=== PATIENT | female | born 1945 | race Caucasian/White ===

== ENCOUNTER 2025-05-25 09:11 | Outpatient (CLI) | payer MEDICARE, OTHER, SELFPAY | END 2025-05-25 09:12 | disposition home or self-care (01) | LOC: NFLDUCREF 09:12 | DX: Z11.9 Encounter for screening for infectious and parasitic diseases, unspecified (principal) | CPT/HCPCS: 86618 ==

== ENCOUNTER 2025-05-30 12:03 | Emergency (ER) | payer MEDICARE, OTHER, SELFPAY ==
--- OUTSIDE RECORDS SUMMARY | 2006-07-12 04:24 | XMS_ITS | Continuity of Care Document ---
Author Organization [facility] Address [address] [address] [place] [address] Phone Care Team Providers Care Research & Insights Executive Name Role Phone Ever Justin MD Unavailable Unavaila ble Allergies, Adverse Reactions, Alerts Substance Reaction Status Criticality Iodinated Contrast Media Anaphylactic shock Active No Information Medications Medication Instructions Dosage Effective Dates (start - stop) Status Comments CALCIUM + VITAMIN D (unknown strength) every day - 1200 mg Not Available - Active alprazolam 0.25 mg Tab as needed - Active aspirin 325 mg Tab every day - Active fluoxetine 40 mg Cap every day - Active Zocor 40 mg Tab every day - Active lisinopril 20 mg Tab every day - Active Zetia 10 mg Tab every day - Active Procedures Procedure Date Colorectal Ca Scrn Not Hi Risk 06 Advance Directives Directive Yes / No Effective Date File Name No Information Encounters Encounter Description Practice Location Reason(s) For Visit Diagnoses Date Provider Providers Copied on Encounter [facility], [address] [address], [place], [place], [id number], [place] tel:[phone] [facility] Colon Cancer Screening Nhan Curtis. [address] [facility], [facility] [address], [place], [place], [id number], [place]. tel:[phone] Family History Family Member Type Diagnosis Age At Onset No Information Payers Payer name Insurance type Covered alliance party ID Authoriza tiwiley(s) [facility] [id number] Social History Type Description Quantity Date Captured Comments Sex Female Smoking Status No Information Chief Complaint And Reason For Visit No Information Reason For Referral Reason For Referral No Information History Of Present Illness Encounter Date Complaint History Of Prese nt Illness No Information Functional Status Date Functional Assessmen t No Information Instructions Date Instruction Additional Infor mation No Information Assessments Type Assessment Date No Information Patient Care Teams Name Effective Dates (start - stop) Status Members No Information
--- OUTSIDE RECORDS SUMMARY | 2006-07-12 04:24 | XMS_ITS | Continuity of Care Document ---
Author Organization [facility] Address [address] [address] [place] [address] Phone Care Team Providers Care Laborer Tin Can Name Role Phone Ever Justin MD Unavailable [...] Diagnoses Date Provider Providers Copied on Encounter [facility], [address] [address], [place], [place], [id number], [place] tel:[phone] [facility] Colon Cancer Screening Nhan Curtis. [address] [facility], [facility] [address], [place], [place], [id number], [place]. tel:[phone] Family History Family Member Type Diagnosis Age At Onset No Information Payers Payer name Insurance type Covered democrat ID Authoriza tiwiley(s) [facility] [id number] Social History Type Description Quantity Date Captured [...]
--- OUTSIDE RECORDS SUMMARY | 2022-01-04 11:05 | XMS_ITS | Continuity of Care Document ---
Author Organization [facility] Address [address] [facility] [place] [address] Phone Care Team Providers Care Sap Basis Name Role Phone Will Ulises YANG Unavailable Unavailabl e Allergies, Adverse Reactions, Alerts Substance Reaction Status Criticality HYDROMORPHONE HCL Active No Informa tion morphine Active No Information Medications Medication Instructions Dosage Effective Dates (start - stop) Status Comments baclofen 10 mg tablet take 0.5 tablet by oral route 3 times every day - Active gabapentin 800 mg tablet take 1 tablet by oral route 2-3 times every day - Active lisinopril 20 mg tablet take 1 Tablet by oral route every day 20 MG - Active pravastatin 40 mg tablet take 1 tablet by oral route every day 40 MG - Active fluoxetine 40 mg capsule take 1 capsule by oral route every day in the morning 40 MG - Active calcium citrate 250 mg calcium tablet 2 tabs daily - Active aspirin 325 mg tablet take 1 tablet by o ral route every day 325 MG - Active Vitamin D3 2,000 unit tablet - Active Procedures Procedure Date OFFICE/OUTPATIENT VISIT, EST OFFICE/OUTPATIENT VISIT, EST OFFICE/OUTPATIENT VISIT, EST OFFICE/OUTPATIENT VISIT, EST OFFICE/OUTPATIENT VISIT, EST OFFICE/OUTPATIENT VISIT, EST THERAPEUTIC EXERCISES PT EVALUATION NEUROMUSCULAR REEDUCATION Mobility Current Status Mobility Goal Status OFFICE/OUTPATIENT VISIT, NEW Advance Directives Directive Yes / No Effective Date File Name No Information Encounters Encounter Description Practice Location Reason(s) For Visit Diagnoses Date Provider Providers Copied on Encounter [facility], [address] [place] [address], [id number] , [place] tel:[phone] [facility] No Information 2 Will Ulises. [address] [place] [address], [id number], [place]. [phone] OFFICE/OUTPA TIENT VISIT, [facility], [address] [place] [address], [id number] , [place] tel: [phone] [facility] Mary Back Pain (chief complaint) LumbagoDegeneratio n of lumbar or lumbosacral intervertebral discPostlaminectom y syndrome of lumbar region Linnea Kent. [address] [place] [address], [id number], [place]. [phone] Specialist : Vish Hudson MD, [address] [place] [address], [place], [address]. tel:[phone] erring Provider: Ulises La, [address] [place] [address], [address] . tel:[phone] OFFICE/OUTPA TIENT VISIT, [facility], [address] [place] [address], [id number] , [place] tel:[phone] [facility] [place] low back pain (chief complaint) Degeneration of lumbar or lumbosacral intervertebral discPostlaminectom y syndrome of lumbar region 4 No Medical Assistant Per Diem : Vish Hudson MD, [address] [place] [address], [place], [address]. tel:[phone] erring Provider: Ulises La, [address] [place] [address], [address] . tel:[phone] OFFICE/OUTPA TIENT VISIT, [facility], [address] [place] [address], [id number] , [place] tel:[phone] [facility] [place] low back pain (chief complaint) Degeneration of lumbar or lumbosacral intervertebral discPostlaminectom y syndrome of lumbar region 4- 4 No Medical Assistant Per Diem : Vish Hudson MD, [address] [place] [address], [place], [address]. tel:[phone] erring Provider: Ulises La, [address] [place] [address] [place], [address] . tel:[phone] OFFICE/OUTPA TIENT VISIT, [facility], [address] [place] [address] [place], [id number] , [place] tel:[phone] [facility] [place] low back pain (chief complaint) Degeneration of lumbar or lumbosacral intervertebral discPostlaminectom y syndrome of lumbar region 0 4 No Medical Assistant Per Diem : Vish Hudson MD, [address] [place] [address], [place], [address]. tel:[phone] erring Provider: Ulises La, [address] [place] [address] [place], [address] . tel:[phone] OFFICE/OUTPA TIENT VISIT, [facility], [address] [place] [address] [place], [place], [id number] , [place] tel:[phone] [facility] [place] low back pain (chief complaint) Degeneration of lumbar or lumbosacral intervertebral discLumbagoPostlam inectomy syndrome of lumbar region Sep-0 3-201 4 No Medical Assistant Per Diem : Vish Hudson MD, [address] [place] [address], [place], [address]. tel:[phone] erring Provider: Ulises La, [address] [place] [address] [place], [address] . tel:[phone] OFFICE/OUTPA TIENT VISIT, [facility], [address] [place] [address] [place], [id number] , [place] tel:[phone] [facility] [place] low back pain (chief complaint) Degeneration of lumbar or lumbosacral intervertebral discLumbagoDepress ion 4 No Medical Assistant Per Diem : Vish Hudson MD, [address] [place] [place], [address]. tel:[phone] erring Provider: Ulises La, [address] [place] [address] [place], [address] . tel:[phone] [facility], [address] [place] [address] [place], [id number] , tel:[phone] [facility] [place] back pain (chief complaint) No Information No Information Referring Provider: Ulises La, [address] [place] [address] [place], [address] . tel:[phone] OFFICE/OUTPA TIENT VISIT, [facility], [address] [place] [address] [place], [place], [id number] , tel:[phone] [facility] low back pain (chief complaint) Degeneration of lumbar or lumbosacral intervertebral discLumbagoPostlam inectomy syndrome of lumbar region No Medical Assistant Per Diem : Vish Hudson MD, [address] [place] [address] [place], [address]. tel:[phone] erring Provider: Ulises La, [address] [place] [address] [place], [address] . tel:[phone] Family History Family Member Type Diagnosis Age At Onset Close relative Problem (finding) bad back and necks Payers Payer name Insurance type Covered democrat ID Libertad cowan(s) [place] [id number] Social History Type Description Quantity Date Captured Comments Sex Female Smoking Status No Information Chief Complaint And Reason For Visit No Information Reason For Referral Reason For Referral No Information History Of Present Illness Encounter Date Complaint History Of Prese nt Illness Back Pain Onset: gradual w ithout injury. Severity level is 7. Duration: chronic. The problem is worsening. It occurs persistently. Location of pain is middle back and lower back.The patient describes the pain as an ache, burning and sharp. Symptoms are aggravated by getting up from sitting or lying down. Symptoms are relieved by lying down and pain meds/drugs. Back Pain (comments) Patient is here for f/u and medication refill. Two days after her last visit, she reports that she popped a rib in her back and believes that it is dislocated. She has an appt with her neurosurgeon this for further diagnosis. She has subsequently been experiencing increased mid-back pain and is back to taking #4 tabs/day of the [place]. She has weaned off the fentanyl patches. She is leaving for [place] for the winter this coming and already has PT scheduled there as well as a referral to an orthosurgeon ready as necessary. She plans to send us records from the neurology appt this week and will contact us as needed while in [place]. Functional Status Date Functional Assessmen t No Information Instructions Date Instruction Additional Infor venancio Reviewed medications Medications counted, patient is on track. Change medication Reviewed medications Reviewed medications Reviewed medications Medications counted, patient is on track. Medications counted, patient is on track. New medication is prescribed Reviewed medications Assessments Type Assessment Date No Information Patient Care Teams Name Effective Dates (start - stop) Status Members No Information
--- OUTSIDE RECORDS SUMMARY | 2022-01-04 11:05 | XMS_ITS | Continuity of Care Document ---
Author Organization [facility] Address [address] [facility] [place] [address] Phone Care Team Providers Care Aerial Gunner Superintendent Name Role Phone Will MD DONOHUE, Ulises Unavailable Unavailabl e Allergies, Adverse Reactions, Alerts Substance Reaction Status Criticality HYDROMORPHONE HCL Active No Informa tion morphine Active No Information Medications Medication Instructions Dosage Effective Dates (start - stop) Status Comments baclofen 10 mg tablet take 0.5 tablet by oral route 3 times every day - Active Vitamin D3 2,000 unit tablet - Active aspirin 325 mg tablet take 1 tablet by o ral route every day 325 MG - Active calcium citrate 250 mg calcium tablet 2 tabs daily - Active fluoxetine 40 mg capsule take 1 capsule by oral route every day in the morning 40 MG - Active pravastatin 40 mg tablet take 1 tablet by oral route every day 40 MG - Active lisinopril 20 mg tablet take 1 Tablet by oral route every day 20 MG - Active gabapentin 800 mg tablet take 1 tablet by oral route 2-3 times every day - Active Procedures Procedure Date OFFICE/OUTPATIENT VISIT, [...] Copied on Encounter [facility], [address] [place] [address], [id number] , [place] [phone] [facility] No Information 2 Will Ulises. [address] [place] [address], [id number], [place]. [phone] OFFICE/OUTPA TIENT VISIT, [facility], [address] [place] [address], [id number] , [place] tel: [phone] [facility] [place] Back Pain (chief complaint) LumbagoDegeneratio n of lumbar or lumbosacral intervertebral discPostlaminectom y syndrome of lumbar region Linnea Kent. [address] [place] [address], [id number], [place]. [phone] Specialist : Vish Hudson MD, [address] [place] [address], [place], [address]. tel:[phone] erring Provider: Ulises La, [address] [place] [address], [address] . tel:[phone] OFFICE/OUTPA TIENT VISIT, [facility], [address] [place] [address], [id number] , [place] tel:[phone] [facility] [place] low back pain (chief complaint) Degeneration of lumbar or lumbosacral intervertebral discPostlaminectom y syndrome of lumbar region 4 No Marketing Recruiter : Vish Hudson MD, [address] [place] [address], [place], [address]. tel:[phone] erring Provider: Ulises La, [address] [place] [address], [address] . tel:[phone] OFFICE/OUTPA TIENT VISIT, [facility], [address] [place] [address], [id number] , [place] tel:[phone] [facility] [place] low back pain (chief complaint) Degeneration of lumbar or lumbosacral intervertebral discPostlaminectom y syndrome of lumbar region 4- 4 No Marketing Recruiter : Vish Hudson MD, [address] [place] [address], [place], [address]. tel:[phone] erring Provider: Ulises La, [address] [place] [address] [place], [address] . tel:[phone] OFFICE/OUTPA TIENT VISIT, [facility], [address] [place] [address] [place], [id number] , [place] tel:[phone] [facility] [place] low back pain (chief complaint) Degeneration of lumbar or lumbosacral intervertebral discPostlaminectom y syndrome of lumbar region 0 4 No Marketing Recruiter : Vish Hudson MD, [address] [place] [address], [place], [address]. tel:[phone] erring Provider: Ulises La, [address] [place] [address] [place], [address] . tel:[phone] OFFICE/OUTPA TIENT VISIT, [facility], [address] [place] [address] [place], [place], [id number] , [place] tel:[phone] [facility] [place] low back pain (chief complaint) Degeneration of lumbar or lumbosacral intervertebral discLumbagoPostlam inectomy syndrome of lumbar region Sep-0 3-201 4 No Marketing Recruiter : Vish Hudson MD, [address] [place] [address], [place], [address]. tel:[phone] erring Provider: Ulises La, [address] [place] [address] [place], [address] . tel:[phone] OFFICE/OUTPA TIENT VISIT, [facility], [address] [place] [address] [place], [id number] , [place] tel:[phone] [facility] [place] low back pain (chief complaint) Degeneration of lumbar or lumbosacral intervertebral discLumbagoDepress ion 4 No Marketing Recruiter : Vish Hudson MD, [address] [facility] [place], [address]. tel:[phone] erring Provider: Ulises La, [address] [place] [address] [place], [address] . tel:[phone] [facility], [address] [place] [address] [place], [id number] , [phone] [facility] [place] back pain (chief complaint) No Information No Information Referring Provider: Ulises La, [address] [facility] [place], [address] . tel:[phone] OFFICE/OUTPA TIENT VISIT, [facility], [address] [place] [address] [place], [id number] , [phone] [facility] [place] low back pain (chief complaint) Degeneration of lumbar or lumbosacral intervertebral discLumbagoPostlam inectomy syndrome of lumbar region No Marketing Recruiter : Vish Hudson MD, [address] [place] [address] [place], [address]. tel:[phone] erring Provider: Ulises La, [address] [place] [address] [place], [address] . tel:[phone] Family History Family Member Type Diagnosis Age At Onset Close relative Problem (finding) bad back and necks Payers Payer name Insurance type Covered libertarian ID Libertad avilawiley(s) Medicare MB [id number] Social History Type Description Quantity Date Captured Comments Sex Female Smoking Status No Information Chief Complaint And Reason For Visit No Information Reason For Referral Reason For Referral No Information History Of Present Illness Encounter Date Complaint History Of Prese nt Illness Back Pain (comments) Patient is here for f/u and medication refill. Two days after her last visit, she reports that she popped a rib in her back and believes that it is dislocated. She has an appt with her neurosurgeon this for further diagnosis. She has subsequently been experiencing increased mid-back pain and is back to taking #4 tabs/day of the [place]. She has weaned off the fentanyl patches. She is leaving for [place] for the winter this coming weekend and already has PT scheduled there as well as a referral to an orthosurgeon ready as necessary. She plans to send us records from the neurology appt this week and will contact us as needed while in [place]. Back Pain Onset: gradual w ithout injury. Severity level is 7. Duration: chronic. The problem is worsening. It occurs persistently. Location of pain is middle back and lower back.The patient describes the pain as an ache, burning and sharp. Symptoms are aggravated by getting up from sitting or lying down. Symptoms are relieved by lying down and pain meds/drugs. Functional Status Date Functional Assessmen t No Information Instructions Date Instruction Additional Infor venancio Medications counted, patient is on track. Reviewed medications Reviewed medications Change medication Reviewed medications Reviewed medications Medications counted, patient is on track. Medications counted, patient is on track. New medication is prescribed Reviewed medications Assessments Type Assessment Date No Information Patient Care Teams Name Effective Dates (start - stop) Status Members No Information
--- OUTSIDE RECORDS SUMMARY | 2025-05-30 12:06 | XMS_ITS | Clinical Summary ---
Author Organization [facility] Address [address] [place] [address] Care Team Providers Care Loom Stop Checker Name Role Phone Unavailable Primary Care Provider Unavailabl e Social History Tobacco Use Types Packs/Day Years Used Date Smoking Tobacco: Never Assessed Comments Unknown Sex and Gender Information Value Date Recorded Sex Assigned at Not on file Legal Sex Female 11:00 AM MST Gender Identity Not on file Sexual Orientation Not on file Plan of Treatment Not on file Insurance MEDICARE PART A B MEDICARE SUPPLEMENTAL OTHER MEDICARE PART A B MEDICARE SUPPLEMENTAL OTHER MEDICARE PART A B MEDICARE SUPPLEMENTAL OTHER MEDICARE PART A B MEDICARE SUPPLEMENTAL OTHER
--- OUTSIDE RECORDS SUMMARY | 2025-05-30 12:06 | XMS_ITS | Encounter Summary ---
Author Organization [facility] Address [address] [place] [address] Care Team Providers Care Microphone Boom Operator Name Role Phone Unavailable Primary Care Provider Unavailabl e Encounter Details Date Type Department Care Team (Late st Contact Info) Description 01/16/[address] [facility] [address] [place] [address] System, Provider Not In [address] [place] [address] Social History Tobacco Use Types Packs/Day Years Used Date Smoking Tobacco: Never Assessed Comments Unknown Sex and Gender Information Value Date Recorded Sex Assigned at Not on file Legal Sex Female 11:00 AM MST Gender Identity Not on file Sexual Orientation Not on file documented as of this encounter Plan of Treatment Not on file documented as of this encounter Procedures Procedure Name Priority Date/Time Associated Diagnosis Comments CBC WITH DIFFERENTIAL Routine 01/25/2023 6:45 AM MST BASIC METABOLIC PANEL Routine 01/25/2023 6:45 AM MST BASIC METABOLIC PANEL Routine 01/21/2023 6:28 AM MST CULTURE URINE Routine 01/16/2023 12:34 PM MST UA WITH MICRO, CULT IF INDICATED Routine 01/16/2023 12:34 PM MST CBC WITH DIFFERENTIAL Routine 01/16/2023 5:54 AM MST COMPREHENSIVE METABOLIC PANEL Routine 01/16/2023 5:54 AM MST documented in this encounter Results * (ABNORMAL) Basic Metabolic Panel (01/25/2023 6:45 AM [facility]) Sodium 136 136 - 144 mmol/L 01/25/2023 8:41 AM [facility] Potassium 3.9 3.6 - 5.0 mmol/L 01/25/2023 8:41 AM [facility] Chloride 106 101 - 111 mmol/L 01/25/2023 8:41 AM [facility] CO2 25 22 - 32 mmol/L 01/25/2023 8:41 AM [facility] Anion Gap 5(L) 7 - 16 01/25/2023 8:41 AM [facility] Calcium 9.7 8.9 - 10.3 mg/dL 01/25/2023 8:41 AM [facility] Glucose 98 70 - 130 mg/dL 01/25/2023 8:41 AM [facility] BUN 13 8 - 20 mg/dL 01/25/2023 8:41 AM [facility] Creatinine 0.7 0.4 - 1.0 mg/dL 01/25/2023 8:41 AM [facility] eGFR >60 >60 mL/min/1.73 m2 01/25/2023 8:41 AM [facility] Blood BLOOD SPECIMEN / Unknown 01/25/2023 6:45 AM [facility] 01/25/2023 8:30 AM [facility] - 01/25/2023 8:41 AM [facility] For patients at least 18 years of age, estimated Glomerular Filtration Rate (eGFR) is calculated from creatinine using the Chronic Kidney Disease Epidemiology Collaboration (CKD-EPI) equation, refit without adjustment for race, as per recommendations from the NKF-ASN Task Force on Reassessing the Inclusion of Race in Diagnosing Kidney Disease. This eGFR equation has similar overall performance characteristics to the Modification of Diet in Renal Disease (MDRD) equation, but has been modified to remove the race coefficient. For patients under 18 years of age, eGFR is calculated using the Bedside Vigil equation. us Provider Not In System LAB BLOOD ORDERABLES Sabra luan Result [facility] [address] [facility] [place] [address], [facility] [phone] * (ABNORMAL) CBC with Differential (01/25/2023 6:45 AM [facility]) WBC 5.7 4.0 - 10.9 10 /uL 01/25/2023 8:38 AM [facility] RBC 3.26(L) 3.50 - 5.40 10 6/uL 01/25/2023 8:38 AM [facility] Hemoglobin 9.7(L) 12.0 - 16.0 g/dL 01/25/2023 8:38 AM [facility] Hematocrit 30.1(L) 36.0 - 48.0 % 01/25/2023 8:38 AM [facility] MCV 92.5 80.0 - 98.0 fL 01/25/2023 8:38 AM [facility] MCH 29.8 27.0 - 34.0 PG 01/25/2023 8:38 AM [facility] MCHC 32.2 31.0 - 37.0 g/dL 01/25/2023 8:38 AM [facility] RDW 15.1(H) 11.5 - 14.5 % 01/25/2023 8:38 AM [facility] RDW-SD 49.9(H) 36.4 - 46.3 fL 01/25/2023 8:38 AM [facility] Platelets 533(H) 130 - 450 K/uL 01/25/2023 8:38 AM [facility] MPV 8.8 7.4 - 12.4 fL 01/25/2023 8:38 AM [facility] Neutrophils 44 % 01/25/2023 8:38 AM [facility] Lymphs 32 % 01/25/2023 8:38 AM [facility] Monocytes 15 % 01/25/2023 8:38 AM [facility] Eosinophils 7 % 01/25/2023 8:38 AM [facility] Basophils 1 % 01/25/2023 8:38 AM [facility] nRBC <1.0 /100 WBCs 01/25/2023 8:38 AM [facility] Neutrophils Absolute 2.48 1.48 - 8.32 10 /uL 01/25/2023 8:38 AM [facility] Lymphocytes Absolute 1.84 0.90 - 3.50 10 /uL 01/25/2023 8:38 AM [facility] Monocytes Absolute 0.84(H) 0.26 - 0.80 uL 01/25/2023 8:38 AM [facility] Eosinophils Absolute 0.42 0.00 - 0.62 /uL 01/25/2023 8:38 AM [facility] Basophils Absolute 0.08 0.00 - 0.10 uL 01/25/2023 8:38 AM [facility] Nucleated RBC Absolute 0.000 0.000 - 0.020 uL 01/25/2023 8:38 AM [facility] Blood BLOOD SPECIMEN / Unknown 01/25/2023 6:45 AM [facility] 01/25/2023 8:30 AM [facility] us Provider Not In System LAB BLOOD ORDERABLES Sabra roland Result [facility] [address] [place] [address], [facility] [phone] * (ABNORMAL) Basic Metabolic Panel (01/21/2023 6:28 AM [facility]) Sodium 135(L) 136 - 144 mmol/L 01/21/2023 8:21 AM [facility] Potassium 4.6 3.6 - 5.0 mmol/L 01/21/2023 8:21 AM [facility] Chloride 103 101 - 111 mmol/L 01/21/2023 8:21 AM [facility] CO2 25 22 - 32 mmol/L 01/21/2023 8:21 AM [facility] Anion Gap 7 7 - 16 01/21/2023 8:21 AM [facility] Calcium 9.5 8.9 - 10.3 mg/dL 01/21/2023 8:21 AM [facility] Glucose 103 70 - 130 mg/dL 01/21/2023 8:21 AM [facility] BUN 14 8 - 20 mg/dL 01/21/2023 8:21 AM [facility] Creatinine 0.7 0.4 - 1.0 mg/dL 01/21/2023 8:21 AM [facility] eGFR >60 >60 mL/min/1.73 m2 01/21/2023 8:21 AM [facility] Blood BLOOD SPECIMEN / Unknown 01/21/2023 6:28 AM [facility] 01/21/2023 8:06 AM [facility] - 01/21/2023 8:21 AM [facility] For patients at least 18 years of age, estimated Glomerular Filtration Rate (eGFR) is calculated from creatinine using the Chronic Kidney Disease Epidemiology Collaboration (CKD-EPI) equation, refit without adjustment for race, as per recommendations from the NKF-ASN Task Force on Reassessing the Inclusion of Race in Diagnosing Kidney Disease. This eGFR equation has similar overall performance characteristics to the Modification of Diet in Renal Disease (MDRD) equation, but has been modified to remove the race coefficient. For patients under 18 years of age, eGFR is calculated using the Bedside Vigil equation. us Provider Not In System LAB BLOOD ORDERABLES Sabra l Result Performing Organization Address City/[facility]/ZIP Co de Phone Number [facility] [address] [facility] [place], [place] [address] [phone] * Culture Urine (01/16/2023 12:34 PM [facility]) Culture Urine 10,000 - 50,000 cfu/mL Streptococcus anginosus MARK 01/18/2023 12:51 PM [facility] Comment: No Further Workup Indicated Urine URINE SPECIMEN OBTAINED BY CLEAN CATCH PROCEDURE / Unknown 01/16/2023 12:34 PM [facility] 01/16/2023 4:27 PM [facility] Narrative Organism Antibiotic Method Susceptibility Streptococcus anginosus *Organism ID Completed Comment: Provider Not In System MICROBIOLOGY - GENERAL OR DERABLES Final Result Performing Organization Address [facility] Co de Phone Number [facility] [address] [place], [place] [address] [phone] * (ABNORMAL) UA with Micro, Cult if indicated (01/16/2023 12:34 PM [facility]) Color, Urine Yellow Colorless, Light Yellow, Yellow, Dark Yellow, Straw 01/16/2023 4:38 PM [facility] Clarity, Urine Cloudy(A) Clear 01/16/2023 4:38 PM [facility] Glucose, Urine Negative Negative mg/dL 01/16/2023 4:38 PM [facility] Bilirubin, Urine Negative Negative 01/16/2023 4:38 PM [facility] Ketones, Urine Negative Negative mg/dL 01/16/2023 4:38 PM [facility] Specific [place], Urine 1.011 1.005 - 1.030 01/16/2023 4:38 PM [facility] Comment:Specific [place] of >1.060 may be due to X-ray dyes. Blood, Urine Large(A) Negative 01/16/2023 4:38 PM [facility] pH, Urine 8.0 5.0 - 8.0 01/16/2023 4:38 PM [facility] Protein, Urine Negative Negative mg/dL 01/16/2023 4:38 PM [facility] Urobilinogen, Urine <2.0 <2.0 mg/dL 01/16/2023 4:38 PM [facility] Nitrite, Urine Negative Negative 01/16/2023 4:38 PM [facility] Leukocyte Esterase, Urine Moderate(A) Negative 01/16/2023 4:38 PM [facility] Culture Indicated? Yes 01/16/2023 4:38 PM [facility] WBC, Urine 42(A) 0 - 5 /HPF 01/16/2023 4:38 PM [facility] RBC, Urine 1 0 - 2 /HPF 01/16/2023 4:38 PM [facility] Bacteria, Urine None Seen None Seen /HPF 01/16/2023 4:38 PM [facility] Squamous Epithelial, Urine 1 0 - 5 /HPF 01/16/2023 4:38 PM [facility] WBC Clumps, Urine Occasional(A ) None Seen /HPF 01/16/2023 4:38 PM [facility] Amorphous Crystals, Urine Rare(A) None Seen /HPF 01/16/2023 4:38 PM [facility] Urine URINE SPECIMEN OBTAINED BY CLEAN CATCH PROCEDURE / Unknown 01/16/2023 12:34 PM [facility] 01/16/2023 4:27 PM [facility] us Provider Not In System URINE ORDERABLES Final Re sult [facility] [address] [place] [address], [facility] [phone] * (ABNORMAL) Comprehensive Metabolic Panel (01/16/2023 5:54 AM [facility]) [facility] Signature Glucose 93 70 - 130 mg/dL 01/16/2023 8:41 AM [facility] BUN 7(L) 8 - 20 mg/dL 01/16/2023 8:41 AM [facility] Creatinine 0.7 0.4 - 1.0 mg/dL 01/16/2023 8:41 AM [facility] eGFR >60 >60 mL/min/1. 73m2 01/16/2023 8:41 AM [facility] Sodium 136 136 - 144 mmol/L 01/16/2023 8:41 AM [facility] Corrected Sodium 01/17/20 8:41 AM [facility] Comment:Test Not Performed. Potassium 3.4(L) 3.6 - 5.0 mmol/L 01/16/2023 8:41 AM [facility] Chloride 103 101 - 111 mmol/L 01/16/2023 8:41 AM [facility] CO2 24 22 - 32 mmol/L 01/16/2023 8:41 AM [facility] Anion Gap 9 7 - 16 01/16/2023 8:41 AM [facility] Total Protein 5.7(L) 6.1 - 7.9 g/dL 01/16/2023 8:41 AM [facility] Albumin 2.6(L) 3.5 - 5.0 g/dL 01/16/2023 8:41 AM [facility] Globulin, Total 3.1 2.0 - 3.9 g/dL 01/16/2023 8:41 AM [facility] A/G Ratio 0.8(L) 1.1 - 2.5 01/16/2023 8:41 AM [facility] Calcium 9.3 8.9 - 10.3 mg/dL 01/16/2023 8:41 AM [facility] Corrected Calcium 10.4(H) 8.9 - 10.3 mg/dL 01/16/2023 8:41 AM [facility] Alkaline Phosphatase 98 38 - 126 U/L 01/16/2023 8:41 AM [facility] ALT 25 14 - 54 U/L 01/16/2023 8:41 AM [facility] AST 24 15 - 41 U/L 01/16/2023 8:41 AM [facility] Bilirubin, Total 0.5 0.4 - 2.0 mg/dL 01/16/2023 8:41 AM [facility] Blood BLOOD SPECIMEN / Unknown 01/16/2023 5:54 AM [facility] 01/16/2023 8:19 AM [facility] - 01/16/2023 8:41 AM [facility] For patients at least 18 years of age, estimated Glomerular Filtration Rate (eGFR) is calculated from creatinine using the Chronic Kidney Disease Epidemiology Collaboration (CKD-EPI) equation, refit without adjustment for race, as per recommendations from the NKF-ASN Task Force on Reassessing the Inclusion of Race in Diagnosing Kidney Disease. This eGFR equation has similar overall performance characteristics to the Modification of Diet in Renal Disease (MDRD) equation, but has been modified to remove the race coefficient. For patients under 18 years of age, eGFR is calculated using the Bedside Vigil equation. us Provider Not In System LAB BLOOD ORDERABLES Sabra l Result [facility] [address] [place] [address], [facility] [phone] * (ABNORMAL) CBC with Differential (01/16/2023 5:54 AM [facility]) WBC 6.3 4.0 - 10.9 10 /uL 01/16/2023 8:40 AM [facility] RBC 2.94(L) 3.50 - 5.40 10 6/uL 01/16/2023 8:40 AM [facility] Hemoglobin 9.1(L) 12.0 - 16.0 g/dL 01/16/2023 8:40 AM [facility] Hematocrit 27.4(L) 36.0 - 48.0 % 01/16/2023 8:40 AM [facility] MCV 93.3 80.0 - 98.0 fL 01/16/2023 8:40 AM [facility] MCH 31.0 27.0 - 34.0 PG 01/16/2023 8:40 AM [facility] MCHC 33.2 31.0 - 37.0 g/dL 01/16/2023 8:40 AM [facility] RDW 14.1 11.5 - 14.5 % 01/16/2023 8:40 AM [facility] RDW-SD 47.3(H) 36.4 - 46.3 fL 01/16/2023 8:40 AM [facility] Platelets 457(H) 130 - 450 K/uL 01/16/2023 8:40 AM [facility] MPV 8.2 7.4 - 12.4 fL 01/16/2023 8:40 AM [facility] Neutrophils 59 % 01/16/2023 8:40 AM [facility] Lymphs 20 % 01/16/2023 8:40 AM [facility] Monocytes 14 % 01/16/2023 8:40 AM [facility] Eosinophils 6 % 01/16/2023 8:40 AM [facility] Basophils 1 % 01/16/2023 8:40 AM [facility] nRBC <1.0 /100 WBCs 01/16/2023 8:40 AM [facility] Neutrophils Absolute 3.74 1.48 - 8.32 10 /uL 01/16/2023 8:40 AM [facility] Lymphocytes Absolute 1.28 0.90 - 3.50 10 /uL 01/16/2023 8:40 AM [facility] Monocytes Absolute 0.86(H) 0.26 - 0.80 uL 01/16/2023 8:40 AM [facility] Eosinophils Absolute 0.36 0.00 - 0.62 uL 01/16/2023 8:40 AM [facility] Basophils Absolute 0.09 0.00 - 0.10 uL 01/16/2023 8:40 AM [facility] Nucleated RBC Absolute 0.000 0.000 - 0.020 uL 01/16/2023 8:40 AM [facility] Blood BLOOD SPECIMEN / Unknown 01/16/2023 5:54 AM [facility] 01/16/2023 8:19 AM [facility] us Provider Not In System LAB BLOOD ORDERABLES Sabra l Result [facility] [address] [place] [address], [facility] [phone] documented in this encounter Visit Diagnoses Not on filedocumented in this encounter
--- OUTSIDE RECORDS SUMMARY | 2025-05-30 12:06 | XMS_ITS | Encounter Summary ---
Author Organization [facility] Address [address] [place] [address]. [place] [address] Care Team Providers Care Inspector Filter Tip Name Role Phone Garcia Muñiz RN Unavailable Tiara Granados MD Unavailable [phone] Ham Mujica Primary Care Provider [phone] Hiral Mir MD Primary Care Provider [phone] Hiral Mir MD Unavailable [phone] Encounter Details Date Type Department Care Team (Late st Contact Info) Description 04/07/2021 MyC Medical Advice [facility] [address] [place] [address] Tiara Granados MD [address] [place] [address] [id number] [place] [address] Social History Tobacco Use Types Packs/Day Years Used Date Smoking Tobacco: Former Cigarettes 0.5 48 S tarted: 03/07/2014 Smokeless Tobacco: Never Alcohol Use Standard Drinks/Week Comments Yes 0 (1 standard drink = 0.6 oz pur e alcohol) 1 drink every 2 weeks Comments No Sex and Gender Information Value Date Recorded Sex Assigned at Not on file Legal Sex Female 3:30 AM EDUCATIONAL ADVISOR Gender Identity Not on file Sexual Orientation Not on file COVID-19 Exposure Response Date Recorded In the last month, have you been in contact with someone who was confirmed or suspected to have Coronavirus / COVID-19? No / Unsure 04/10/2021 9:24 PM CDT documented as of this encounter Plan of Treatment Not on file documented as of this encounter Visit Diagnoses Not on filedocumented in this encounter Additional Health Concerns Infection Onset Date Last Indicated Resolved Time COVID-19 04/11/2021 04/11/2021 05/02/2021 11:3 9 PM CDT documented as of this encounter Care Teams Inspector Filter Tip Relationship Specialty Start Date End Date EileenelizabethHam daniels [address] [place] [address] PCP - General Internal Medicine 02/13/21 07/03/21 [place] [address] [address] [address] PCP - General Family Medicine 07/04/21 Garcia Muñiz, FABIÁN Specialty Formation Fracturing Operator Neurological Surgery 08/10/20 07/03/21 Tiara Granados MD [address] [facility] [id number] [place] [address] Assigned Neuroscience Provider 09/09/20 01/04/23 [place] [id number] [address] [address] Assigned PCP 06/08/21 08/09/24 documented as of this encounter
--- OUTSIDE RECORDS SUMMARY | 2025-05-30 12:06 | XMS_ITS | Encounter Summary ---
Author Organization [facility] Address [address] [place] [address] Care Team Providers Care Vending Machine Refiller Name Role Phone Dee Dee Gutierres M.D. Primary Care Provider [phone] Encounter Details Date Type Department Care Team (Late st Contact Info) Description 03/18/2025 Results Follow-Up Medallion Program in [place], [place] [address] [place] [address] Dee Dee Gtuierres M.D. [address] [place] [address] BI Breast Screening Bilateral with Tomosynthesis Social History Tobacco Use Types Packs/Day Years Used Date Smoking Tobacco: Former Cigarettes 1 54.9 1 11/18/1961 - 08/03/2017 Smokeless Tobacco: Never Comments:has been smokefree since 08/04 Alcohol Use Standard Drinks/Week Comments Yes 6 (1 standard drink = 0.6 oz pure alcohol) Very sporatic. Many weeks i have no alcohol [facility] Utilities Answer Date Recorded In the past 12 months has e electric, gas, oil, or water company threatened to shut off services in your home? No 03/29/2025 Humiliation, Afraid, Rape, and Kick questionnair e Answer Date Recorded Within the last year, have y ou been afraid of your partner or ex-partner? No 02/10/2023 Within the last year, have y ou been humiliated or emotionally abused in other ways by your partner or ex-partner? No Within the last year, have y ou been kicked, hit, slapped, or otherwise physically hurt by your partner or ex-partner? No 02/10/2023 Within the last year, have y ou been raped or forced to have any kind of sexual activity by your partner or ex-partner? No 02/10/2023 Hunger Vital Sign Answer Date Recorded Within the past 12 months, y ou worried that your food would run out before you got the money to buy more. Never true 03/29/20 Within the past 12 months, t he food you bought just didn't last and you didn't have money to get more. Never true 03/29/2025 PRAPARE - Transportation Answer Date Re corded In the past 12 months, has l ack of transportation kept you from medical appointments or from getting medications? No 03/18 In the past 12 months, has l ack of transportation kept you from meetings, work, or from getting things needed for daily living? No 03/29/2025 Depression Answer Date Recor ded PHQ-9 Total Score (max 27) 3 12/16 Housing Stability Answer Date Recorded What is your living situation today? I have a [facility] place to live 03/29/2025 Education Answer Date Recorded What is the highest level of school you have completed or the highest degree you have received? Some college, no degree 01/07/2022 Comments No Sex and Gender Information Value Date Recorded Sex Assigned at Female 01/07/2023 2:39 PM REALTIME CAPTIONER Legal Sex Female 11:08 PM REALTIME CAPTIONER Gender Identity Female 01/07/2023 2:39 PM REALTIME CAPTIONER Sexual Orientation Straight 09/14/2018 9: 19 PM CDT documented as of this encounter Plan of Treatment Upcoming Encounters Date Type Department Care Team (Latest Contact Info) Description 08/16/2025 7:50 AM MST Appointment Department of Laboratory Medicine and Pathology, [facility], in [place], [place] [address] [place] [address] Kaur Flynn [place]D. [address] [place] [address] 08/16/2025 8:00 AM [facility] Ancillary Procedure Department of Radiology in [place], [place] [address] [place] [phone] Kaur Flynn [place]. [address] [place] [address] 08/16/2025 10:00 AM [facility] Office Visit Division of Endocrinology in [place], [place] [address] [place] [address] Kaur Flynn [place]. [address] [place] [address] documented as of this encounter Visit Diagnoses Not on filedocumented in this encounter Additional Health Concerns Assessment Noted Time PHQ-9 Depression Total Score: 3 12/16/19 25 11:52 AM REALTIME CAPTIONER documented as of this encounter Care Teams Vending Machine Refiller Relationship Specialty Start Date End Date Dee Dee Gutierres M.D. NPSherita: [phone] [address] [place] [address] PCP - General Internal Medicine 08/14/21 documented as of this encounter
--- OUTSIDE RECORDS SUMMARY | 2025-05-30 12:06 | XMS_ITS | Encounter Summary ---
Author Organization [facility] Address [address] [place] [address] Care Team Providers Care Shredding Machine Knife Changer Name Role Phone Dee Dee Gutierres M.D. Primary Care Provider [phone] Encounter Details Date Type Department Care Team (Late st Contact Info) Description 03/15/2025 Results Follow-Up Transplant Center in [place], [place] [address] [place] [address] Too Phillips M.D. [address] [place] [phone] [place] [facility] Complete Social History Tobacco Use Types Packs/Day Years Used Date Smoking Tobacco: Former Cigarettes 1 54.9 1 11/18/1961 - 08/03/2017 Smokeless Tobacco: Never Comments:has been smokefree since 08/04 Alcohol Use Standard Drinks/Week Comments Yes 6 (1 standard drink = 0.6 oz pure alcohol) Very sporatic. Many weeks i have no alcohol C Utilities Answer Date Recorded In the past 12 months has [facility] [employer], gas, oil, or water [employer] threatened to shut off services in your [...] money to buy more. Never true 03/29/20 25 Within the past 12 months, t he [...] your living situation today? I have a [facility] place to live 03/29/2025 Education Answer Date Recorded What is the highest level of school you have completed or the highest degree you have received? Some college, no degree 01/07/2022 Comments No Sex and Gender Information Value Date Recorded Sex Assigned at Female 01/07/2023 2:39 PM BIRD SITTER Legal Sex Female 11:08 PM BIRD SITTER Gender Identity Female 01/07/2023 2:39 PM BIRD SITTER Sexual Orientation Straight 09/14/2018 9: 19 PM CDT documented as of this encounter Plan of Treatment Upcoming Encounters Date Type Department Care Team (Latest Contact Info) Description 08/16/2025 7:50 AM MST Appointment Department of Laboratory Medicine and Pathology, [facility], in [place], [place] [address] [place] [phone] Kaur Flynn M.D. [address] [place] [address] 08/16/2025 8:00 AM [facility] Ancillary Procedure Department of Radiology in [place], [place] [address] [place] [address] Kaur Flynn M.D. [address] [place] [address] 08/16/2025 10:00 AM [facility] Office Visit Division of Endocrinology in [place], [place] [address] [place] [address] Kaur Flynn M.D. [address] [place] [address] documented as of this encounter Visit Diagnoses Not on filedocumented in this encounter Additional Health Concerns Assessment Noted Time PHQ-9 Depression Total Score: 3 12/16/19 25 11:52 AM BIRD SITTER documented as of this encounter Care Teams Shredding Machine Knife Changer Relationship Specialty Start Date End Date Dee Dee Gutierres M.D. NPSherita: [id number] [address] [place] [address] PCP - General Internal Medicine 08/14/21 documented as of this encounter
--- OUTSIDE RECORDS SUMMARY | 2025-05-30 12:06 | XMS_ITS | Patient Health Record ---
Author Organization [facility], Address [address] [place] [address] Support Name Relationship Address Phone Xuan Mendieta Guarantor Unknown [phone] Reason For Referral No Information Problems Problem Type SNOMED Code ICD Code Onset Dates Problem Status W/U Status Risk Notes Problem Sensorineural hearing loss, bilateral (443611814) H90.3-Hearing loss, sensorineural, bilateral (H90.3) 01/10/20 17 Active confirmed Problem Sensorineural hearing loss, bilateral (677497565) 389.18-Hearing loss sensorineural bilateral (389.18) 01/08/20 14 Active confirmed Problem Sensorineural hearing loss (96976457) 389.10-Hearing Loss Sensorineural (389.10) 12/03/19 14 Active confirmed Plan Of Treatment No Information Insurance Providers Payer Name Payer Address Payer Phone Subscriber Number Group Number Insured Name Patient Relationship to Insured Coverage Start Date Coverage End Date Medicare Part B [employer] [address] [place] [phone] [id number] Xuna Mendieta Self - patient is the insured [facility] [address] [place] [address] [phone] [id number] Xuan Mendieta Self - patient is the insured
--- OUTSIDE RECORDS SUMMARY | 2025-05-30 12:06 | XMS_ITS | Encounter Summary ---
Author Organization [facility] Address [address] [place] [address] Care Team Providers Care Field Artillery Officer Name Role Phone Dee Dee Gutierres M.D. Primary Care Provider [phone] Encounter Details Date Type Department Care Team (Late st Contact Info) Description 03/15/2025 Results Follow-Up Department of Medical and Surgical Gynecology in [place], [place] [address] [place] [address] Aayush Vee M.D. [address] [place] [phone] Urinalysis, with Microscopic: Urine, Midstream, Bacterial Culture, Aerobic + Susceptibility, Urine Social History Tobacco Use Types Packs/Day Years Used Date Smoking Tobacco: Former Cigarettes 1 54.9 1 11/18/1961 - 08/03/2017 Smokeless Tobacco: Never Comments:has been smokefree since 08/04 Alcohol Use Standard Drinks/Week Comments Yes 6 (1 standard drink = 0.6 oz pure alcohol) Very sporatic. Many weeks i have no alcohol C Utilities Answer Date Recorded In the past 12 months has th e electric, gas, oil, or water company [...] your living situation today? I have a [facility] place to live 03/29/2025 Education Answer Date Recorded What is the highest level of school you have completed or the highest degree you have received? Some college, no degree 01/07/2022 Comments No Sex and Gender Information Value Date Recorded Sex Assigned at Female 01/07/2023 2:39 PM BUSINESS DEVELOPMENT ASSISTANT Legal Sex Female 11:08 PM BUSINESS DEVELOPMENT ASSISTANT Gender Identity Female 01/07/2023 2:39 PM BUSINESS DEVELOPMENT ASSISTANT Sexual Orientation Straight 09/14/2018 9: 19 PM CDT documented as of this encounter Plan of Treatment Upcoming Encounters Date Type Department Care Team (Latest Contact Info) Description 08/16/2025 7:50 AM [facility] Appointment Department of Laboratory Medicine and Pathology, [facility], in [place], [place] [address] [place] [address] Kaur Flynn M.D. [address] [place] [address] 08/16/2025 8:00 AM [facility] Ancillary Procedure Department of Radiology in [place], [place] [address] [place] [address] Kaur Flynn M.D. [address] [place] [address] 08/16/2025 10:00 AM [facility] Office Visit Division of Endocrinology in [place], [place] [address] [place] [address] Kaur Flynn M.D. [address] [place] [address] documented as of this encounter Visit Diagnoses Not on filedocumented in this encounter Additional Health Concerns Assessment Noted Time PHQ-9 Depression Total Score: 3 12/16/19 25 11:52 AM BUSINESS DEVELOPMENT ASSISTANT documented as of this encounter Care Teams Field Artillery Officer Relationship Specialty Start Date End Date Dee Dee Gutierres M.D. [address] [place] [address] PCP - General Internal Medicine 08/14/21 documented as of this encounter
--- OUTSIDE RECORDS SUMMARY | 2025-05-30 12:06 | XMS_ITS | Encounter Summary ---
Author Organization [facility] Address [address] [place] [address]. [place] [address] Care Team Providers Care Vehicle Mechanic Name Role Phone Garcia Muñiz RN Unavailable Tiara Granados MD Unavailable [phone] Ham Mujica Primary Care Provider [phone] Hiral Mir MD Primary Care Provider [phone] Hiral Mir MD Unavailable [phone] Encounter Details Date Type Department Care Team (Late st Contact Info) Description 03/27/2021 MyC Medical Advice [facility] [address] [place] [address] Tiara Granados MD [address] [place] [address] [id number] [place] [address] Social History Tobacco Use Types [...] on file Legal Sex Female 3:30 AM PUMP TENDER Gender Identity Not on file Sexual Orientation Not on file COVID-19 Exposure Response Date Recorded In the last month, have you been in contact with someone who was confirmed or suspected to have Coronavirus / COVID-19? No / Unsure 03/21/2021 2:01 PM CDT documented as of this encounter Plan of Treatment Not on file documented as of this encounter Visit Diagnoses Not on filedocumented in this encounter Additional Health Concerns Infection Onset Date Last Indicated Resolved Time COVID-19 04/11/2021 04/11/2021 05/02/2021 11:3 9 PM CDT documented as of this encounter Care Teams Vehicle Mechanic Relationship Specialty Start Date End Date ValdemarjimHam daniels [address] [place] [address] PCP - General Internal Medicine 02/13/21 07/03/21 [place] [address] [address] [address] PCP - General Family Medicine 07/04/21 Garcia Muñiz, FABIÁN Specialty Bottom Turning Lathe Tender Neurological Surgery 08/10/20 07/03/21 Tiara Granados MD [address] [facility] [id number] [place] [address] Assigned Neuroscience Provider 09/09/20 01/04/23 [place] [address] [address] [address] Assigned PCP 06/08/21 08/09/24 documented as of this encounter
--- OUTSIDE RECORDS SUMMARY | 2025-05-30 12:06 | XMS_ITS | Encounter Summary ---
Author Organization [facility] Address [address] [place] [address]. [place] [address] Care Team Providers Care Contour Sander Name Role Phone Garcia Muñiz RN Unavailable Tiara Granados MD Unavailable [phone] Ham Mujica Primary Care Provider [phone] Hiral Mir MD Primary Care Provider [phone] Hiral Mir MD Unavailable [phone] Encounter Details Date Type Department Care Team (Late st Contact Info) Description 02/20/2021 MyC Medical Advice [facility] [address] [place] [address] Marine Weston, RN Social History Tobacco Use Types Packs/Day Years Used Date Smoking Tobacco: Former Cigarettes 0.5 48 S tarted: 03/07/2014 Smokeless Tobacco: Never Alcohol Use Standard Drinks/Week Comments Yes 0 (1 standard drink = 0.6 oz pur e alcohol) 1 drink every 2 weeks Comments No Sex and Gender Information Value Date Recorded Sex Assigned at Not on file Legal Sex Female 3:30 AM CANNONEER Gender Identity Not on file Sexual Orientation Not on file documented as of this encounter Plan of Treatment Not on file documented as of this encounter Visit Diagnoses Not on filedocumented in this encounter Additional Health Concerns Infection Onset Date Last Indicated Resolved Time Rule Out COVID-19 03/20/2021 03/20/2021 03/21/2021 6:32 PM CDT COVID-19 04/11/2021 04/11/2021 05/02/2021 11:3 9 PM CDT documented as of this encounter Care Teams Contour Sander Relationship Specialty Start Date End Date Ham Mujica [address] [place] [address] PCP - General Internal Medicine 02/13/21 07/03/21 [place] [address] [address] [address] PCP - General Family Medicine 07/04/21 Garcia Muñiz, FABIÁN Specialty Carbon Furnace Operator Neurological Surgery 08/10/20 07/03/21 Tiara Granados MD [address] [facility] [address] Assigned Neuroscience Provider 09/09/20 01/04/23 [place] [address] [address] [address] Assigned PCP 06/08/21 08/09/24 documented as of this encounter
--- OUTSIDE RECORDS SUMMARY | 2025-05-30 12:06 | XMS_ITS | Encounter Summary ---
Author Organization [facility] Address [address] [place] [address] Care Team Providers Care Floor Grinder Name Role Phone Dee Dee Gutierres M.D. Primary Care Provider [phone] Encounter Details Date Type Department Care Team (Latest Contact Info) Description 04/02/2025 Clinical Communication Division of Endocrinology in [place], [place] [address] [place] [address] Kaur Flynn M.D. [address] [place] [address] Social History Tobacco Use Types Packs/Day Years Used Date Smoking Tobacco: Former Cigarettes 1 54.9 1 11/18/1961 - 08/03/2017 Smokeless Tobacco: Never Comments:has been smokefree since 08/04 Alcohol Use Standard Drinks/Week Comments Yes 3 (1 standard drink = 0.6 oz pure alcohol) Very sporatic. Many weeks i have no alcohol C Utilities Answer Date Recorded In the past 12 months has [facility] [employer], gas, oil, or water [employer] threatened to shut off services in your [...] your living situation today? I have a [facility] place to live 03/29/2025 Education Answer Date Recorded What is the highest level of school you have completed or the highest degree you have received? Some college, no degree 01/07/2022 Comments No Sex and Gender Information Value Date Recorded Sex Assigned at Female 01/07/2023 2:39 PM INSURANCE CASE MANAGER Legal Sex Female 11:08 PM INSURANCE CASE MANAGER Gender Identity Female 01/07/2023 2:39 PM INSURANCE CASE MANAGER Sexual Orientation Straight 09/14/2018 9: 19 PM CDT documented as of this encounter Plan of Treatment Upcoming Encounters Date Type Department Care Team (Latest Contact Info) Description 08/16/2025 7:50 AM MST Appointment Department of Laboratory Medicine and Pathology, [facility], in [place], [place] [address] [place] [address] Kaur Flynn M.D. [address] [place] [address] 08/16/2025 8:00 AM [facility] Ancillary Procedure Department of Radiology in [place], [place] [address] [place] [address] Kaur Flynn [place].D. [address] [place] [address] 08/16/2025 10:00 AM [facility] Office Visit Division of Endocrinology in [place], [place] [address] [place] [address] Kaur Flynn [place].D. [address] [place] [address] documented as of this encounter Visit Diagnoses Not on filedocumented in this encounter Additional Health Concerns Assessment Noted Time PHQ-9 Depression Total Score: 3 12/16/19 25 11:52 AM INSURANCE CASE MANAGER documented as of this encounter Care Teams Floor Grinder Relationship Specialty Start Date End Date Dee Dee Gutierres M.D. [address] [place] [address] PCP - General Internal Medicine 08/14/21 documented as of this encounter
--- OUTSIDE RECORDS SUMMARY | 2025-05-30 12:06 | XMS_ITS | Clinical Summary ---
Author Organization [facility] Address [address] [place] [address] Care Team Providers Care Chinchilla Farmer Name Role Phone Dee Dee Gutierres M.D. Primary Care Provider [phone] Source Comments Patient records contain information from all sites at [facility]. For routine questions regarding patient records, call [phone] during business hours, M-F 8:00 AM - 5:00 PM Central Time. Record requests for emergency care only can be directed to [phone] at any time.[facility] Allergies Active Allergy Reactions Criticality Noted Date Comments Atorvastatin Other (see comments),Myalgia Medium 06/15/2010 lipitor Myalgia/myositis Diatrizoate Meglumine Anaphylaxis High 07/07/2013 (contrast dye) Hydromorphone Hallucinations Medium 08/17/2016 Iodinated Contrast Media Anaphylaxis High 10/01/2017 1995 stent placed, Six hours after stent placed, patient had anaphylactic reaction (shock - my bp was 50 over something). A few days later her skin peeled all over her body. Has received iodine contras x2 since then, both with steroid prep and has had no reaction. Morphine Hallucinations Medium 08/17/2016 Nickel Sulfate Rash Medium 08/17/2016 Oxycodone Other (see comments),Hallucinatio ns,Hypotension (Reselect Reaction) High 02/05/2023 Respiratory depression; Req'd Narcan inpatient Rosuvastatin Myalgia Medium 08/17/2016 Myalgia, myositis Medications * This document contains information received from the source organization and may not represent a complete record from that organization. psyllium seed, with dextrose, (FIBER ORAL) Take 5 tablets by mouth every morning. 6 Active ascorbic acid, vitamin C, (VITAMIN C) 100 mg tablet Take 1,000 mg by mouth daily. Active cholecalciferol (VITAMIN D3) 50 mcg (2,000 Unit) capsule Take 1 capsule by mouth every morning. Active neomycin-polymyx in-HC (CORTISPORIN) 3.5-10,000-1 mg/mL-unit/mL-% otic suspension Apply 4 drops to the affected ear twice daily for 10 days 10 mL 3 09/27/2023 10:59 AM MEDICAL GENETICIST 3 Active Additional Information Patient not taking.Reported on 12/16/2024 hydrocortisone (Hytone) 2.5 % ointment apply to affected area twice a day 20 g 1 4 Active escitalopram (Lexapro) 20 mg tablet Take 1 tablet (20 mg total) by mouth daily. 90 tablet 3 5 Active gabapentin (Neurontin) 300 mg capsuleIndicatio ns:Dysesthesia Take 3 capsules (900 mg total) by mouth 3 (three) times a day. 810 capsule 3 5 Active lisinopriL 10 mg tablet Take 1 tablet (10 mg total) by mouth daily. 90 tablet 3 5 Active mirabegron (Myrbetriq) 25 mg 24 hr tablet Take 1 tablet (25 mg total) by mouth daily. 90 tablet 3 5 Active pravastatin (PravachoL) 80 mg tablet Take 1 tablet (80 mg total) by mouth daily. 90 tablet 3 5 Active ursodioL (CHRIS Forte) 500 mg tablet Take 1 tablet (500 mg total) by mouth 2 (two) times a day. 180 tablet 3 5 Active ketoconazole (Nizoral) 2 % shampooIndicatio ns:Dermatitis Seborrheic Apply 1 Application topically 2 (two) times a week. Apply to damp skin, lather, leave on 5 minutes, and rinse 120 mL 11 5 Active clobetasoL (Cormax) 0.05 % external solutionIndicati ons:Dermatitis Seborrheic Apply twice daily to seborrheic dermatitis within the hair until smooth, then discontinue. Do not use on face, underarm, groin, or under breasts (female). May use [employer] if cheaper. 50 mL 2 5 Active triamcinolone (Kenalog) 0.1 % creamIndications :Dermatitis Apply twice daily to the rash on the body until smooth, then discontinue. Do not apply to face, underarm, groin, under breasts (female). May use [employer] if cheaper. 28.4 g 5 5 Active Repatha SureClick 140 mg/mL pen injector injection INJECT 1 ML (140 MG TOTAL) UNDER THE SKIN EVERY 14 DAYS. 6 mL 3 5 Active phenazopyridine (Pyridium) 200 mg tablet TAKE 1 TABLET (200 MG TOTAL) BY MOUTH ONCE FOR 1 DOSE. TAKE 1-2 HOURS BEFORE YOUR PROCEDURE. 5 Active LORazepam (Ativan) 0.5 mg tablet TAKE 1 TABLET (0.5 MG TOTAL) BY MOUTH 3 (THREE) TIMES A DAY NEEDED FOR ANXIETY. 90 tablet 5 Active nitrofurantoin monohydrate (Macrobid) 100 mg capsuleIndicatio ns:Urinary Tract Infection Site Not Specified Take 1 capsule (100 mg total) by mouth 2 (two) times a day. 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 Has remained on weight based dosing of ursodiol since then. Imaging: DEXA 01/2023: Osteoporosis US Liver 03/2023: normal w/o splenomegaly Fibroscan 08/2023: CAP 193, kPa 4.2 (S0, F1) Fibroscan 09/2024: CAP 197, kPa 4.3 (S0, F1) Labwork: 01/2023: TSH normal, total vitamin D normal 03/2023: plts 358, tbili 0.2, ALT 19, AST 28, AP 152, albumin 4.4; total cholesterol 134, HDL 72, LDL 45, tri 90 08/27/23: Tbili 0.3, ALT 12, AST 20, AP 123, HAV total neg, HBsAb neg, HBsAg neg, Hbc total neg, HCV Ab neg Assessment & Plan (09/21/2024 1:46 PM [facility]): Patient remains on weight-based dosing of ursodiol. Reiterated importance of remaining on this indefinitely. Reviewed again the implications of PBC on bone health, cardiovascular health and link with other autoimmune diseases. She already has an underlying diagnosis of osteoporosis which has been complicated by fractures. She is following with endocrinology regarding this. While patient has alendronate on her medication list, she is unsure if she is taking this. Additionally, she has had prior hyperlipidemia with significant coronary artery disease requiring stenting which is currently very well controlled on Repatha and statin therapy. In regards to overall liver health, plan to follow liver enzymes annually. No concern for fibrosis based on Fibroscan. Patient remains well compensated. Repeat FibroScan in one year. We discussed maintaining a healthy BMI (decreased 30 to 28 today), through dietary modification. Additionally, discussed appropriate EtOH use and while patient does not have history of excessive use, we did recommend minimization. Recommended previously to get HAV and HBV vaccinations due to lack of immunity. Assessment & Plan (08/28/2023 11:26 AM [facility]): We discussed in great detail the pathophysiology of primary biliary cholangitis and explained to the patient what the disease is and how it effects the liver. We discussed with the patient that her liver overall is doing very well as there is no evidence of scarring and her alk phos is already downtrending. We highlighted the importance of remaining compliant with ursodiol as it can delay progression to cirrhosis and it normalizes the alkaline phosphatase. We discussed that PBC can be associated with fatigue but unfortunately pharmacotherapy does not improve the symptoms. We also discussed the importance of minimizing further liver injury from other causes including minimizing alcohol intake and ensuring patient remains active and avoids weight gain. We recommend checking hepatitis C as well as vaccination status for hepatitis A and B and would recommend vaccination if patient does not have immunity We would recommend to check LFTs in 6 months to follow up the alkaline phosphatase We would recommend for the patient to return in 1 year on our liver clinic and will repeat a liver ultrasound and a FibroScan at that time. Team can also check TSH periodically as PBC can coexist with other autoimmune conditions most notably thyroid disease. Most recent TSH was normal Assessment & Plan (03/29/2023 1:56 PM [facility]): She meets diagnostic criteria for PBC. Her alkaline phosphatase levels have fluctuated, and are difficult to interpret in the setting of spinal surgery. However, with the positive AMA, CRISTÓBAL and an elevated liver fraction she does meet criteria for PBC. I would suggest initiation of weight based ursodiol 1000mg/day in divided doses. I would suggest starting with 500mg once nightly for two weeks and increasing to 500mg twice daily indefinitely thereafter with hepatic panel once every 6 months. I would suggest a Fibroscan be performed as well. If desired, she can establish care in our hepatology clinic for longitudinal care. Fracture Vertebra Thoracic Sequela 02/06/2023 Hypokalemia 01/28/2023 Pain Back Lumbar 01/02/2023 Dysesthesia 08/17/2022 Dermatitis Allergic Contact 08/17/2022 Overview (12/29/2023): Standard Series 09/21/22 PPD 4+ IL Nickel 4+ IL Disperse Proctor 4+ IL Potassium Dichromate 1+ IL Ethylenediamine dihydrochloride 4+ Q Methylisothiazolinone 1+ Q Fragrance Mix 1 1+ Q Extended Series 09/24/22 Gold sodium thiosulfate 2+ NR Dermatitis Seborrheic 08/04/2022 Osteoporosis 08/26/2020 Overview (09/21/2024): Evidence of osteoporosis on DEXA 01/2023. Follows with endocrinology. Alendronate is on medication list however patient is unclear if she is taking this. Will f/u with provider. Pain Thoracic Spine 08/09/2020 Overview (11/03/2020): Added automatically from request for surgery [id number] Hypertensive Heart Disease Without Heart Failure 10/20/2018 Hyperlipidemia 08/12/2017 Overview (06/27/2018): Hyperlipidemia NOS Coronary Artery Disease Without Angina Pectoris 09/11/2016 Overview (09/21/2024): +H/o CAD s/p stenting x3 previously. Due to this and h/o hyperlipidemia, patient remains on Repatha and statin therapy. Assessment & Plan (09/21/2024 1:47 PM [facility]): Patient to f/u with PCP regarding need for aspirin 81mg. Scoliosis 08/03/2014 Pain Back 11/10/2012 Pain Low Back Chronic 08/15/2012 Depression Major One Episode Full Remission 05/19 Migraine Headache 06/15/2010 Hypertension 06/15/2010 Panic Disorder Episodic Paroxysmal Anxiety 06/15 Deficiency Vitamin D 06/15/2010 Encounters Date Type Department Care Team Description 05/10/2025 Refill Medallion Program in [place], [place] [address] [place] [phone] Dee Dee Gutierres M.D. Med Refill 04/26/2025 Clinical Communication Division of Endocrinology in [place], [place] [address] [place] [address] Kaur Flynn M.D. Mdl Pt - END Est Work In Request - Gee 04/05/2025 9:45 AM [facility] Nurse Only Department of Medical and Surgical Gynecology in [place] [address] [place] [address] Aayush Vee M.D. Micah Santana, R.N. 04/02/2025 Clinical Communication Division of Endocrinology in [place], [place] [address] [place] [address] Kaur Flynn M.D. 03/22/2025 8:00 AM MST Procedure visit Department of Medical and Surgical Gynecology in [place] [address] [place] [address] Aayush Vee M.D. Urinary Urge Incontinence 03/18/2025 Results Follow-Up Medallion Program in [place] [address] [place] [address], [place] [address] Dee Dee Gutierres M.D. BI Breast Screening Bilateral with Tomosynthesis 03/15/2025 11:09 AM [facility] - 03/15/2025 11:59 PM [facility] Hospital Encounter Department of Radiology in [place] [address] [place] [address] Dee Dee Gutierres M.D. Screening Mammogram Breast Cancer Discharge Disposition: Home or Self Care 03/15/2025 10:06 AM [facility] - 03/15/2025 11:08 AM [facility] Hospital Encounter Department of Radiology, [facility], in [place] [address] [place] [address] Too Phillips M.D. Cirrhosis Biliary Primary (HCC) Discharge Disposition: Home or Self Care 03/15/2025 7:48 AM [facility] - 03/15/2025 10:05 AM [facility] Hospital Encounter Department of Laboratory Medicine and Pathology, [facility] in [place] [address] [place] [address] Aayush Vee M.D. Urinary Urge Incontinence Discharge Disposition: Home or Self Care 03/15/2025 Results Follow-Up Transplant Center in [place], [place] [address] [place] [address] Too Phillips M.D. US Abdomen Complete 03/15/2025 Results Follow-Up Department of Medical and Surgical Gynecology in [place] [address] [place] [address] Aayush Vee M.D. Urinalysis, with Microscopic: Urine, Midstream, Bacterial Culture, Aerobic + Susceptibility, Urine 03/03/2025 Refill Medallion Program in [place], [place] [address] [place] [address] Dee Dee Gutierres M.D. Med Refill from Last 3 Months Immunizations Immunization Administration Dates Next Due HZV (ZOSTAVAX) 10/25/2014 Influenza TIV (IM) 08/19/2013, 3,09/08/2012,2010,10/07/2010 Influenza high dose QV(65 ye ars or older) (PF) 08/25/2022,08/18/2022 Influenza, Injectable, Quadrivalent 10/17/2020 Influenza, Quadrivalent, Adj uvanted, Preservative Free 10/22/2021,10/17/2020 Influenza, Seasonal, Injectable 08/19/20 13,09/08/2012,10/07/2010,2007,11/06/2007,09/26/2005 Influenza, Unspecified 09/18/2017,09/11/2016,06/2015 PCV13 03/23/2015 PPD Test 11/13/2012 PPSV23 03/17/2012,11/13/2006 RZV (SHINGRIX) 10/12/2019,03/04/2019 SARS-COV-2 (COVID-19) - MODE RNA BIVALENT(Discontinued) 08/25/2022 SARS-COV-2 (COVID-19) - PFIZ ER (Discontinued)(12 years or older) 01/09/2021,12/19/2020 SARS-COV-2 (COVID-19) - PFIZ ER TS(Discontinued)(12 years or older) 02/28/2022 Td (Adult), adsorbed 11/22/2003 Td, (Adult) Unspecified 11/22/2003 Tdap 09/11/2016,10/29/2012 influenza trivalent high dos e (HD)(PF) 12/16/2024,08/25/2022,08/18/2022,2018,09/18/2018,07/26/2014 influenza trivalent vaccine (6 months and older)(PF) 08/16/2011 Family History Medical History Relation Name Comments Anxiety disorder Brother 1 Tao Hypertension Brother 1 Tao Hypertension Brother 2 Ruifno Hypertension Daughter Tamika Osteoporosis Daughter Tamika Ulcerative colitis Daughter Tamika Coronary artery disease Father Antonio from heart failure Anxiety disorder Mother Ashley Arthritis Mother Ashley Depression Mother Ashley Emphysema Mother Ashley Hypertension Mother Ashley from heart failure Osteoporosis Mother Ashley Glaucoma Paternal Grandfather Paternal Grandfather Kidney disease Paternal Grandfather Paternal Grandfath er Transient ischemic attack Paternal Grandfather Paternal Grandfather Rufino Arthritis Paternal Grandmother Suzy Old age Paternal Grandmother Suzy Pacemaker care Sister 1 Ashley Esteves heart damage to scleroderma Scleroderma Sister 1 Ashley Esteves Breast cancer Sister 2 Dorita Ovarian cancer Sister 3 Britni Psychiatric Sister 3 Britni Bipolar Arthritis Sister 4 Daksha Carotid artery disease Sister 4 Daksha Sleep apnea Sister 4 Daksha Hypertension Son Bryce Relation Name Status Comments Brother 1 Tao Alive Brother 2 Rufino Alive Daughter Tamika Alive Father Antonio (Age 75) Mother Ashley (Age 72) Paternal Grandfather Paternal Grandfather (Ag e 96) Paternal Grandmother Suzy (Age 88) Sister 1 Ashley Esteves Alive Sister 2 Dorita Alive Sister 3 Britni Alive Sister 4 Daksha Alive Son Bryce Alive Social History Tobacco Use Types Packs/Day Years Used Date Smoking Tobacco: Former Cigarettes 1 54.9 1 11/18/1961 - 08/03/2017 Smokeless Tobacco: Never Tobacco Cessation:Counseling Given: Not Answered Comments:has been smokefree since 08/04 Alcohol Use Standard Drinks/Week Comments Yes 3 (1 standard drink = 0.6 oz pure alcohol) Very sporatic. Many weeks i have no alcohol [employer] Answer Date Recorded In the past 12 months has [employer], gas, oil, or water [employer] threatened to shut off services in your [...] your living situation today? I have a [facility] place to live 03/29/2025 Education Answer Date Recorded What is the highest level of school you have completed or the highest degree you have received? Some college, no degree 01/07/2022 Comments No Sex and Gender Information Value Date Recorded Sex Assigned at Female 01/07/2023 2:39 PM MEDICAL GENETICIST Legal Sex Female 11:08 PM MEDICAL GENETICIST Gender Identity Female 01/07/2023 2:39 PM MEDICAL GENETICIST Sexual Orientation Straight 09/14/2018 9: 19 PM CDT Last Filed Vital Signs Vital Sign Reading Time Taken Comments Blood Pressure 125/57 02/26/2025 10:37 AM [facility] Pulse 67 02/26/2025 10:37 AM [facility] Temperature 36.8 C (98.2 F) 02/26/2025 10:37 AM MST Respiratory Rate 16 02/26/2025 10:37 AM [facility] Oxygen Saturation 97% 02/26/2025 10:37 AM MST Inhaled Oxygen Concentration - - Weight 68.3 kg (150 lb 9.2 oz) 02/26/2025 9:54 A M [facility] Height 158 cm (5' 2.21) 12/16/2024 10:48 AM [facility] Body Mass Index 27.36 12/16/2024 10:48 AM [facility] Plan of Treatment Upcoming Encounters Date Type Department Care Team (Latest Contact Info) Description 08/16/2025 7:50 AM [facility] Appointment Department of Laboratory Medicine and Pathology, [facility], in [place], [place] [address] [place] [address] Kaur Flynn M.D. [address] [place] [address] 08/16/2025 8:00 AM [facility] Ancillary Procedure Department of Radiology in [place], [place] [address] [place] [address] Kaur Flynn M.D. [address] [place] [address] 08/16/2025 10:00 AM [facility] Office Visit Division of Endocrinology in [place], [place] [address] [place] [address] Kaur Flynn [place].D. [address] [place] [address] Health Maintenance Due Date Last Done Comments Visit: Medicare Annual Wellness 1945 Hepatitis A Vaccines (1 of 2 - Risk 2-dose series) 1965 Hepatitis B Vaccines (1 of 3 - Risk 3-dose series) 2006 RSV vaccine - (32-36 weeks) or 60+ years (1 - 1-dose 75+ series) 2021 COVID-19 Vaccine ( season) 2024 08/25/2022, 02/28/2022, 10/22/2021, Additional history exists Lung Cancer Screening 03/18/2025 03/18/2024 , 03/11/2023, 12/28/2021, Additional history exists Depression Monitoring (PHQ-9) 04/15/2025 12/16/2024 Influenza Vaccine (#1) 2025 , 08/25/2022, 08/25/2022, Additional history exists Abdominal Ultrasound 09/14/2025 03/15/2025, 02/27/2024, 03/20/2023, Additional history exists Fasting Glucose for Diabetes Screening 12/16/2025 12/16/2024, 12/16/2024, 09/28/2024, Additional history exists Potassium Level 12/16/2025 12/16/2024, 09/18, 12/12/2023, Additional history exists Sodium Level 12/16/2025 12/16/2024, 09/18, 12/12/2023, Additional history exists Visit: Chronic Disease, age 18+ 12/16/2025 12/16/2024 Office Visit for Blood Pressure Check / Re-check 02/08/2026 02/08/2025 Creatinine Level (Kidney Function Test) 02/26/2026 02/26/2025, 12/16/2024, 09/28/2024, Additional history exists DTaP,Tdap,and Td Vaccines (3 - Td or Tdap) 09/11/2026 09/11/2016, 10/29/2012, 11/22/2003, Additional history exists Pneumococcal vaccine (50+ years) Completed 03/23/2015, 03/17/2012, 11/13/2006 Zoster Vaccines Completed 10/12/2019, 02/16, 10/25/2014 Colonoscopy Discontinued 02/19/2022 Colorectal Cancer Screening Discontinued Hepatitis B Screening Discontinued 08/30/2023 Hepatitis C Screening Completed 08/30/2023 Depression Monitoring (PHQ-9 for quality tracking) Completed 12/16/2024, 12/16/2024 Fall Risk Screen (Annual) Completed 02/26/2025 Mammogram Discontinued 03/15/2025, 06/2024, 02/04/2023, Additional history exists CT Colonography Discontinued Cologuard Discontinued FIT Discontinued IPV Vaccines Aged Out No longer eligi ble based on patient's age to complete this topic Medical Devices Implanted Type Area Behavior Interventionist Device Identifier Shelf Expiration Date Model / Serial / Lot Gr Inf [facility] 5.6 - [id number] Implanted:Qt y: 1 on 01/02/2023 by Shawn Keene M.D. at [facility] Bone or Tissue N/A: Spine Thoracic Medtronic 08/17/2024 [id number] / / [id number] [facility] [place] [address] 60 - [id number] - [id number] Implanted:Qt y: 1 on 01/02/2023 by Shwan Keene M.D. at [facility] Bone or Tissue N/A: Back [employer] 05/07/2025 [id number] / [id number] / Cardiac Stent X 3 Cardiac Stent Coronary Pramod Tka Hardware e.g. pins/screw s/rods Bilateral: Knee Spn Scrw L55mm Od6.5mm 4s Poly - [id number] Implanted:Qt y: 2 on 01/02/2023 by Shawn Keene M.D. at [facility] Hardware e.g. pins/screw s/rods N/A: Spine Thoracic NuVasive [id number] / / Spn Scrw Rln Lck Sld 5.5 - [id number] 0 Implanted:Qt y: 30 on 01/02/2023 by Shawn Keene M.D. at [facility] Hardware e.g. pins/screw s/rods N/A: Spine Thoracic Nu[employer]asive [id number] / / Spn Jorge Rln O 5.5x300 - [id number] 0 Implanted:Qt y: 2 on 01/02/2023 by Shawn Keene M.D. at [facility] Hardware e.g. pins/screw s/rods N/A: Spine Thoracic Nu[employer] [id number] / / Spn Jorge Rln Str 5.5x500 - [id number] 0 Implanted:Qt y: 2 on 01/02/2023 by Shawn Keene M.D. at [facility] Hardware e.g. pins/screw s/rods N/A: Spine Thoracic [employer] [id number] / / 4.5x40 Screw Implanted:Qt y: 1 on 01/02/2023 by Shawn Keene M.D. at [facility] Hardware e.g. pins/screw s/rods N/A: Spine Thoracic [employer] [id number] / / Spn Scrw Rln O 4s Sld 4.5x45 - [id number] 0 Implanted:Qt y: 1 on 01/02/2023 by Shawn Keene M.D. at [facility] Hardware e.g. pins/screw s/rods N/A: Spine Thoracic [employer] [id number] / / Spn Jorge Rln 5-5.5 - [id number] 0 Implanted:Qt y: 4 on 01/02/2023 by Shawn Keene M.D. at [facility] Hardware e.g. pins/screw s/rods N/A: Spine Thoracic Nu[employer]asive [id number] / / Spn Scrw Rln O Sld 5.5x40 - [id number] 0 Implanted:Qt y: 5 on 01/02/2023 by Shawn Keene M.D. at [facility] Hardware e.g. pins/screw s/rods N/A: Spine Thoracic Nu[employer]asive [id number] / / Spn Scrw Rln O Sld 4s 5.5x45 - [id number] 0 Implanted:Qt y: 4 on 01/02/2023 by Shawn Keene M.D. at [facility] Hardware e.g. pins/screw s/rods N/A: Spine Thoracic [employer]asive [id number] / / Screw Spinal L50mm Dia6.5mm - [id number] 0 Implanted:Qt y: 2 on 01/02/2023 by Shawn Keene M.D. at [facility] Hardware e.g. pins/screw s/rods N/A: Spine Thoracic Nu[employer]asive [id number] / / Spn Scrw Rln O Sld 4s 5.5x45 - [id number] 0 Implanted:Qt y: 4 on 01/02/2023 by Shawn Keene M.D. at [facility] Hardware e.g. pins/screw s/rods N/A: Spine Thoracic Nu[employer]asive [id number] / / [employer] Biopsy Clip - [id number] Implanted:Qt y: 1 on 03/11/2024 at [facility] Imaging Marker Right: Breast [employer] [id number] 11/27/2024 RK-LEEANNE VA-13 / / [id number] Pramod Iols Ocular Lens Eye Spn Scrw Rln O Sld Poly 5.5x35 - [id number] Implanted:Qt y: 3 on 01/02/2023 by Shawn Keene M.D. at [facility] Spine Implant N/A: Spine Thoracic Nu[employer]asive [id number] / / NA Explanted Type Area Behavior Interventionist Device Identifier Shelf Expiration Date Model / Serial / Lot T9-Pelvis Spine Fusion Explanted:Qty : 25 on 01/02/2023 by Shawn Keene M.D. at [facility] Hardware e.g. pins/screws/ rods Spine Lumbar Description:Explanted 4 rods , 4 connectors, 29 set screws, and 22 screws. Procedures Procedure Name Priority Date/Time Associated Diagnosis Comments IL CYSTHRSCPY INJ CHEMODENRVATION Routine 03/22/2025 8:00 AM [facility] Urinary Urge Incontinence BI BREAST SCREENING BILATERAL WITH TOMOSYNTHESIS RAD - Routine (most inpatients and all outpatients) 03/15/2025 11:53 AM [facility] Screening Mammogram Breast Cancer US ABDOMEN COMPLETE RAD - Routine (most inpatients and all outpatients) 03/15/2025 11:05 AM [facility] Cirrhosis Biliary Primary (HCC) URINALYSIS WITH MICROSCOPIC Routine 03/15/2025 8:42 AM [facility] Urinary Urge Incontinence BACTERIAL CULTURE, AEROBIC + SUSC, URINE Routine 03/15/2025 8:42 AM [facility] Urinary Urge Incontinence CREATININE WITH EGFR, S/P Routine 02/26/2025 8:51 AM [facility] Osteoporosis COMPREHENSIVE METABOLIC PANEL, S/P Routine 12/16/2024 8:24 AM [facility] Cirrhosis Biliary Primary (HCC) Hypertensive Heart Disease Without Heart Failure Coronary Artery Disease Without Angina Pectoris CT CHEST WITHOUT IV CONTRAST LUNG CANCER SCREEN LOW DOSE RAD - Routine (most inpatients and all outpatients) 03/18/2024 9:28 AM [facility] Smoking Tobacco Use Personal History HCV AB SCRN W/REFLEX TO HCV PCR, S Routine 08/30/2023 9:26 AM [facility] Cirrhosis Biliary Primary (HCC) HEPATITIS B SURFACE ANTIGEN Routine 08/30/2023 9:26 AM [facility] Cirrhosis Biliary Primary (HCC) COLONOSCOPY Routine 02/19/2022 7:01 AM [facility] General Medical Examination Adult from Last 3 Months or Most Recently Relevant to Health Maintenance Results * [place] CYSTHRSCPY INJ CHEMODENRVATION (03/22/2025 8:00 AM [facility]) Narrative Aayush Vee M.D. - 03/22/2025 8:00 AM [facility] Aayush Vee M.D. 03/22/2025 12:17 PM Injection Visit - Bladder Botox Performed by: Aayush Vee M.D. Authorized by: Aayush Vee M.D. Care team members present 1. Liyah Dumont [facility] PROCEDURE DETAILS Prophylactic medication comment: macrobid 100mg daily x 3 days called in. The cystoscope was introduced and anatomical landmarks identified. Number of units of Botox injected: 100 units Approximate number of injection sites: 10 CONSENT Consent obtained: written (Risks, benefits and alternatives were discussed and a written Informed Consent was obtained. Please see Informed Consent form for further details.) UNIVERSAL [employer]OTOCOL All relevant documentation and testing were reviewed and available. All required blood products, implants, devices and or special equipment were made available as applicable. Pre-procedure verification was conducted and the correct site was marked if required. A fire risk and smoke assessment were done as applicable. The procedural time-out to verify correct patient, correct side/site, and procedure was conducted prior to performing the procedure and confirmed in a procedural pause. PRE-PROCEDURE DETAILS Indications: urge incontinence Appropriate hand hygiene, gown, cap, mask, protective eyewear, sterile gloves, skin preparation, sterile drape, and strict aseptic technique were utilized as applicable for the procedure.: yes Site preparation: povidone-iodine SEDATION / ANESTHESIA Anesthesia method: topical application Topical application type: lidocaine POST-PROCEDURE DETAILS Procedure completed successfully: yes Complications: no apparent complications Comments I spoke to the patient about her symptoms. She does have return of her urgency about 6 weeks ago. A PVR was checked today which is noted to be 17 mL by bladder scanner. While she states that she is only voiding about 4-5 times during the day, she does void about 2 times per night. In hindsight she does feel like she is voiding more frequently than this. She has completed a bladder diary but had not sent that to us. She will send it to us. We discussed the risks of proceeding with Botox, and given that she is emptying her bladder well I recommended proceeding. We did agree upon a lower dose, because she did have significant improvement in her symptoms, and given the potential risk for retention and need for catheterization we decided on 75 units as opposed to 100. If she returns sooner without the need to catheterize, we will consider going back to the 100 units dose. us Aayush Vee M.D. OB GYNE ORDERABLES Final Result * BI Breast Screening Bilateral with Tomosynthesis (03/15/2025 11:53 AM [facility]) Anatomical Region Laterality Modality Breast, Breast Imaging RST L OS, Breast Imaging ARZ LOS, Breast Imaging FLA LOS Bilateral Mammography Impressions 03/15/2025 2:10 PM MST Negative. RECOMMENDATION: Annual Screening Mammogram ASSESSMENT: BI-RADS: 1: Negative. Narrative 03/15/2025 2:10 PM MST EXAM: BI BREAST SCREENING BILATERAL WITH TOMOSYNTHESIS Current study was evaluated with a Computer Aided Detection (CAD) system. INDICATION: Screening mammogram. COMPARISON: Prior exam(s) were available and reviewed for comparison. DENSITY: b. There are scattered areas of fibroglandular density. FINDINGS: No mammographic findings of malignancy. Procedure Note Tonja Tristan M.D. - 03/15/2025 EXAM: BI BREAST SCREENING BILATERAL WITH TOMOSYNTHESIS Current study was evaluated with a Computer Aided Detection (CAD) system. INDICATION: Screening mammogram. COMPARISON: Prior exam(s) were available and reviewed for comparison. DENSITY: b. There are scattered areas of fibroglandular density. FINDINGS: No mammographic findings of malignancy. IMPRESSION: Negative. RECOMMENDATION: Annual Screening Mammogram ASSESSMENT: BI-RADS: 1: Negative. Dee Dee Gutierres M.D. IMG BI PROCEDURES Final R esult * US Abdomen Complete (03/15/2025 11:05 AM MST) Anatomical Region Laterality Modality Abdomen, Ultrasound RST LOS, Ultrasound ARZ LOS, Ultrasound FLA LOS N/A Ultrasound Impressions 03/15/2025 11:38 AM MST Normal abdominal ultrasound. Narrative 03/15/2025 11:38 AM MST EXAM: US ABDOMEN COMPLETE CLINICAL INFORMATION PROVIDED IN REQUISITION: H/o PBC, no known cirrhosis ADDITIONAL PERTINENT AVAILABLE HISTORY: None. COMPARISON: Abdominal ultrasound dated 02/27/2024 FINDINGS: The liver appears normal. The spleen is normal in size (volume calculated at 85.1 ml, based on 7.0 cm length x 3.1 cm AP x 7.4 cm transverse). The gallbladder appears normal. The extrahepatic duct is normal in caliber. There is no intrahepatic bile duct dilatation. Allowing for limitations of ultrasound, no pancreatic abnormality is identified. Both kidneys are within normal limits in size and show no hydronephrosis. Benign left peripelvic cyst. Aorta is normal in caliber. Intrahepatic IVC is morphologically unremarkable. No ascites. MEASUREMENTS OBTAINED: Common hepatic duct: 0.6 cm R Kidney length: 10.7 cm L Kidney length: 11.0 cm Main Hepatic Artery PSV: 83 cm/s Procedure Note Daryl Abreu M.D. - 03/15/2025 EXAM: US ABDOMEN COMPLETE CLINICAL INFORMATION PROVIDED IN REQUISITION: H/o PBC, no knowncirrhosis ADDITIONAL PERTINENT AVAILABLE HISTORY: None. COMPARISON: Abdominal ultrasound dated 02/27/2024 FINDINGS: The liver appears normal. The spleen is normal in size (volume calculated at 85.1 ml, based on 7.0cm length x 3.1 cm AP x 7.4 cm transverse). The gallbladder appears normal. The extrahepatic duct is normal in caliber. There is no intrahepatic bileduct dilatation. Allowing for limitations of ultrasound, no pancreatic abnormality isidentified. Both kidneys are within normal limits in size and show no hydronephrosis.Benign left peripelvic cyst. Aorta is normal in caliber. Intrahepatic IVC is morphologicallyunremarkable. No ascites. MEASUREMENTS OBTAINED: Common hepatic duct: 0.6 cm R Kidney length: 10.7 cm L Kidney length: 11.0 cm Main Hepatic Artery PSV: 83 cm/s IMPRESSION: Normal abdominal ultrasound. us Too Phillips M.D. IMG US PROCEDURES Final Re sult * Bacterial Culture, Aerobic + Susceptibility, Urine (03/15/2025 8:42 AM [facility]) [facility] Urine Culture No growth after 1 day of incubation. 03/16/2025 6:34 AM [facility] Urine (Urine, Midstream) 03/15/2025 8:42 AM [facility] 03/15/2025 9:31 AM [facility] Comment:Specimen Source Site : Urine Aayush Vee M.D. LAB MICROBIOLOGY - GENERAL ORDER JOHN PAUL Final Result [facility] [address] [place] [address], [facility] [address] [place] [address] * Urinalysis, with Microscopic: Urine, Midstream (03/15/2025 8:42 AM [facility]) Pathologist [facility] Clarity Clear 03/15/2025 9:21 AM [facility] Color Yellow 03/15/2025 9:21 AM [facility] pH, U 5.5 4.5 - 8.0 03/15/2025 9:21 AM [facility] Specific [place] 1.009 1.002 - 1.030 03/15/2025 9:21 AM [facility] Glucose NEG NEG mg/dL 03/15/2025 9:21 AM [facility] Protein, U NEG NEG mg/dL 03/15/2025 9:21 AM [facility] Bilirubin NEG NEG 03/15/2025 9:21 AM [facility] Urobilinogen <0.2 NORMAL mg/dL 03/15/2025 9:21 AM [facility] Hemoglobin, QL NEG NEG 03/15/2025 9:21 AM [facility] Ketones NEG NEG mg/dL 03/15/2025 9:21 AM [facility] Leukocyte Esterase NEG NEG 03/15/2025 9:21 AM [facility] Nitrite, U NEG NEG 03/15/2025 9:21 AM [facility] Urine RBC <1 0 - 2 /hpf 03/15/2025 9:21 AM [facility] White Blood Cells 1-3 0 - 3 /hpf 025 9:21 AM [facility] Urine (Urine, Midstream) 03/15/2025 8:42 AM [facility] 03/15/2025 9:01 AM [facility] us Aayush Vee M.D. LAB URINE ORDERABLES Final Resul t Performing Organization Address [facility] de Phone Number [facility] [address] [place] [address], [place] [address] * Creatinine with Estimated GFR (02/26/2025 8:51 AM [facility]) Creatinine 0.61 0.59 - 1.04 mg/dL 02/26/2025 9:27 AM [facility] Estimated GFR (eGFR) >90 >=60 mL/min/BSA 02/26/2025 9:27 AM [facility] Comment: Estimated GFR calculated using the 2020 CKD_EPI creatinine equation. Blood (Blood, Venous) 02/26/2025 8:51 AM [facility] 02/26/2025 8:58 AM [facility] us Kaur Flynn M.D. LAB BLOOD ADD-ON Final R esult Performing Organization Address [facility] Co de Phone Number [facility] [address] [place] [address], [address] [address] * (ABNORMAL) Comprehensive Metabolic Panel (12/16/2024 8:24 AM [facility]) Potassium, S 4.6 3.6 - 5.2 mmol/L 12/16/2024 9:35 AM [facility] Sodium, S 136 135 - 145 mmol/L 12/16/2024 9:35 AM [facility] Chloride, S 100 98 - 107 mmol/L 12/16/2024 9:35 AM [facility] Bicarbonate, S 25 22 - 29 mmol/L 12/16/2024 9:35 AM [facility] Anion Gap 11 7 - 15 12/16/2024 9:35 AM [facility] BUN (Blood Urea Nitrogen), S 11.2 6.0 - 21.0 mg/dL 12/16/2024 9:35 AM [facility] Creatinine 0.65 0.59 - 1.04 mg/dL 12/16/2024 9:35 AM [facility] Estimated GFR (eGFR) >90 >=60 mL/min/BS A 12/16/2024 9:35 AM [facility] Comment: Estimated GFR calculated using the 2020 CKD_EPI creatinine equation. Calcium, Total, S 10.3(H) 8.8 - 10.2 mg/dL 12/16/2024 9:35 AM [facility] Glucose, S 85 70 - 140 mg/dL 12/16/2024 9:35 AM [facility] Protein, Total, S 7.1 6.3 - 7.9 g/dL 12/16/2024 9:35 AM [facility] Albumin, S 4.2 3.5 - 5.0 g/dL 12/16/2024 9:35 AM [facility] Aspartate Aminotransferase (AST), S 24 8 - 43 U/L 12/16/2024 9:35 AM [facility] Alkaline Phosphatase, S 95 35 - 104 U/L 12/16/2024 9:35 AM [facility] Alanine Aminotransferase (ALT), S 16 7 - 45 U/L 12/16/2024 9:35 AM [facility] Bilirubin, Total, S 0.4 0.0 - 1.2 mg/dL 12/16/2024 9:35 AM [facility] Blood (Blood, Venous) 12/16/2024 8:24 AM [facility] 12/16/2024 8:49 AM [facility] us Dee Dee Gutierres M.D. LAB BLOOD ADD-ON Final Re sult [facility] [address] [address], [facility] [address] [place] [address] * CT Chest Lung Cancer Screen Low Dose without IV Contrast (03/18/2024 9:28 AM [facility]) Anatomical Region Laterality Modality Chest, Thoracic RST LOS, Tho racic ARZ LOS, Thoracic FLA LOS N/A Computed Tomography Impressions 03/18/2024 9:48 AM [facility] Lung-RADS CATEGORY: 2 [ Negative for screening purposes ] CATEGORY DESCRIPTOR: Benign (Based on imaging features or indolent behavior) RECOMMENDATION: Continue annual screening with Low-Dose CT Chest in 12 months according to appropriate selection criteria. S-Modifier: Severe coronary artery disease For additional information regarding Lung-RADS categories: [email or web address] Narrative 03/18/2024 9:48 AM [facility] EXAM: CT CHEST WITHOUT IV CONTRAST LUNG CANCER SCREEN LOW DOSE HISTORY: Lung cancer screening. The patient has been evaluated in our lung cancer screening clinic and meets eligibility criteria for annual LDCT lung cancer screening. This is an annual follow-up examination. TECHNIQUE: CT Chest without intravenous contrast utilizing low dose technique according to lung cancer screening protocol. - COMPARISON: 03/11/2023, 12/28/2021 FINDINGS: NODULES: No new nodules. Unchanged 3 mm right upper lobe nodule with likely unchanged, however more prominent micronodules in the right apex (series 301 image 94) which is felt to be technique related. Unchanged 2 mm right upper lobe nodules (image 115, 135). Unchanged fissural micronodules in the right upper and middle lobe (images 110, 260). Unchanged 2 mm nodule in the medial right lower lobe (image 332). OTHER FINDINGS: Emphysema: None Coronary calcium: Severe multivessel No axillary or supraclavicular lymphadenopathy. Thyroid gland is unremarkable. No mediastinal lymphadenopathy. Hilar unremarkable allowing for lack of intravenous contrast. Tiny hiatal hernia. Moderate calcification of the aorta. Great vessels are normal in course and caliber. Normal cardiac morphology. No pericardial effusion. Severe multivessel coronary artery disease/stenting. No consolidation. No pleural effusion or pneumothorax. Left basilar atelectasis, decreased compared to prior. No acute subdiaphragmatic abnormality. Partially visualized extensive thoracolumbar posterior fusion hardware with multilevel compression deformities. Procedure Note Tristan Ellis M.D. - 03/18/2024 EXAM: CT CHEST WITHOUT IV CONTRAST LUNG CANCER SCREEN LOW DOSE HISTORY: Lung cancer screening. The patient has been evaluated in our lungcancer screening clinic and meets eligibility criteria for annual LDCTlung cancer screening. This is an annual follow-up examination. TECHNIQUE: CT Chest without intravenous contrast utilizing low dosetechnique according to lung cancer screening protocol. - COMPARISON: 03/11/2023, 12/28/2021 FINDINGS: NODULES: No new nodules. Unchanged 3 mm right upper lobe nodule withlikely unchanged, however more prominent micronodules in the right apex(series 301 image 94) which is felt to be technique related. Unchanged 2mm right upper lobe nodules (image 115, 135). Unchanged fissural micronodules in the right upper and middle lobe(images 110, 260). Unchanged 2 mm nodule in the medial right lower lobe(image 332). OTHER FINDINGS: Emphysema: None Coronary calcium: Severe multivessel No axillary or supraclavicular lymphadenopathy. Thyroid gland isunremarkable. No mediastinal lymphadenopathy. Hilar unremarkable allowingfor lack of intravenous contrast. Tiny hiatal hernia. Moderate calcification of the aorta. Great vessels are normal in courseand caliber. Normal cardiac morphology. No pericardial effusion. Severemultivessel coronary artery disease/stenting. No consolidation. No pleural effusion or pneumothorax. Left basilaratelectasis, decreased compared to prior. No acute subdiaphragmatic abnormality. Partially visualized extensivethoracolumbar posterior fusion hardware with multilevel compressiondeformities. IMPRESSION: Lung-RADS CATEGORY: 2 [ Negative for screening purposes ] CATEGORY DESCRIPTOR: Benign (Based on imaging features or indolentbehavior) RECOMMENDATION: Continue annual screening with Low-Dose CT Chest in 12months according to appropriate selection criteria. S-Modifier: Severe coronary artery disease For additional information regarding Lung-RADS categories: [email or web address] Braulio Clifton APRN, JOSEFA-CONNIE, M.S.N. IMG CT PRO CEDURES Final Result * HCV Ab Scrn w/Reflex to HCV PCR, Serum (08/30/2023 9:26 AM [facility]) HCV Ab Screen, S Negative Negative 08/30/2023 11:03 AM [facility] Comment:Oxejmb-qu-mtacxs rat io is <1.00. Blood (Blood, Venous) 08/30/2023 9:26 AM MST 08/30/2023 9:28 AM [facility] Too Phillips M.D. LAB MICROBIOLOGY - BLOOD O RDERABLES Final Result [facility] [address] [place] [address], [facility] [phone] [place] [phone] * Hepatitis B Surface Antigen (08/30/2023 9:26 AM [facility]) Pathologist [facility] HBs Antigen, S Negative 08/30/2023 11:06 AM [facility] Blood (Blood, Venous) 08/30/2023 9:26 AM [facility] 08/30/2023 9:28 AM [facility] Too Phillips M.D. LAB MICROBIOLOGY - BLOOD O RDERABLES Final Result Performing Organization Address City/[facility]/ZIP Co de Phone Number [facility] [address] [place] [address], [facility] [phone] [address] * Colonoscopy (02/19/2022 7:01 AM [facility]) 02/19/2022 7:01 AM [facility] Impressions [facility] - 02/19/2022 8:21 AM [facility] Post-op Diagnoses: - Diverticulosis in the sigmoid colon. - The distal rectum and anal verge are normal on retroflexion view. - No specimens collected. N[facility]ative [facility] 8:21 AM [facility]-GI GI Patient Name: Xuan Mendieta Date of : 1945 Age: 76 Gender: Female Procedure Date: 02/19/2022 Procedure: Colonoscopy Providers: Al Ladd MD, Dee Dee Gutierres (Ordering Provider) Referring Provider: Dee Dee Gutierres Pre-op Diagnoses: Screening for colorectal malignant neoplasm Recommendation: - Patient has a contact number available for emergencies. The signs and symptoms of potential delayed complications were discussed with the patient. Return to normal activities tomorrow. Written discharge instructions were provided to the patient. - Discharge patient to home (ambulatory). - Repeat colonoscopy in 10 years for screening purposes. - Return to referring physician as previously scheduled. Findings: The perianal and digital rectal examinations were normal. A single small-mouthed diverticulum was found in the sigmoid colon. The retroflexed view of the distal rectum and anal verge was normal and showed no anal or rectal abnormalities. Procedural Details: The patient was seen, evaluated, and history reviewed. Airway and heart and lung exams were performed and were satisfactory for planned sedation care. The risks, benefits and alternatives for the procedure and sedation were discussed and informed consent was obtained. A procedural pause was conducted in the presence of assisting personnel to verify the correct patient identity and procedure to be performed. Throughout the procedure, the patient's blood pressure, pulse, and oxygen saturations were monitored continuously. The Colonoscope was introduced under direct vision through the anus and advanced to the cecum, identified by appendiceal orifice and ileocecal valve. The colonoscopy was performed with ease. The patient tolerated the procedure well. The quality of the bowel preparation was evaluated using the BBPS ([place] Bowel Preparation Scale) with scores of: Right Colon = 3, Transverse Colon = 3 and Left Colon = 3 (entire mucosa seen well with no residual staining, small fragments of stool or opaque liquid). The total BBPS score equals 9. The ileocecal valve, appendiceal orifice, and rectum were photographed. The scope was advanced using CO2 insufflation. Complications: No immediate complications. Sedation: Moderate (conscious) sedation was administered by the endoscopy nurse and supervised by the endoscopist. The following parameters were monitored: oxygen saturation, heart rate, blood pressure, and response to care. Total physician intraservice time was 20 minutes. Attending Participation: I personally performed the entire procedure. Al Ladd MD 02/19/2022 8:21:11 AM This report has been signed electronically. Number of Addenda: 0 Note Initiated On: 02/19/2022 7:01 AM Dee Dee Gutierres M.D. GI PROCEDURE ORDERABLES F inal Result [facility] [employer] NA from Last 3 Months or Most Recently Relevant to Health Maintenance Insurance [employer] Advance Directives For more information, please contact: [phone] * Full Code (Latest Code Status on File) Date Activated Date Inactivated Comments 01/02/2023 9:15 PM 01/15/2023 4:56 PM Question Answer Comments Full Code: Not Discussed Due to: Patient not available Care Teams Chinchilla Farmer Relationship Specialty Start Date End Date Dee Dee Gutierres M.D. [address] [place] [phone] PCP - General Internal Medicine 08/14/21
--- OUTSIDE RECORDS SUMMARY | 2025-05-30 12:06 | XMS_ITS | Encounter Summary ---
Author Organization [facility] Address [address] [place] [address] Care Team Providers Care Physician Chief Of Pathology Name Role Phone Dee Dee Gutierres M.D. Primary Care Provider [phone] Reason for Visit * Reason Onset Date Comments Mdl Pt - END Est Work In [employer] [facility] 07/2025 Encounter Details Date Type Department Care Team (Latest Contact Info) Description 04/26/2025 Clinical Communication Division of Endocrinology in [place], [place] [address] [place] [address] Kaur Flynn M.D. [address] [place] [phone] Sebastian Pt - END [facility] Social History Tobacco Use Types Packs/Day Years [...] your living situation today? I have a [facility] place to live 03/29/2025 Education Answer Date Recorded What is the highest level of school you have completed or the highest degree you have received? 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 [address] [place] [address] 08/16/2025 8:00 AM [facility] Ancillary Procedure Department of Radiology in [place], [place] [address] [place] [address] Kaur Flynn M.D. [address] [place] [address] 08/16/2025 10:00 AM [facility] Office Visit Division of Endocrinology in [place], [place] [address] [place] [address] Kaur Flynn M.D. [address] [place] [phone] documented as of this encounter Visit Diagnoses Not on filedocumented in this encounter Additional Health Concerns Assessment Noted Time PHQ-9 Depression Total Score: 3 12/16/19 25 11:52 AM NETWORK SEC[employer]ITY OFFICER documented as of this encounter Care Teams Physician Chief Of Pathology Relationship Specialty Start Date End Date Dee Dee Gutierres M.D. [address] [place] [address] PCP - General Internal Medicine 08/14/21 documented as of this encounter
--- OUTSIDE RECORDS SUMMARY | 2025-05-30 12:06 | XMS_ITS | Clinical Summary ---
Author Organization [facility] Address [address] [place] [address]. [place] [address] Care Team Providers Care Instructional Services Specialist Name Role Phone Hiral Mir MD Primary Care Provider + [phone] Allergies Active Allergy Reactions Criticality Noted Date Comments Atorvastatin 07/11/2012 Muscle aches Diatrizoate Meglumine Muscle Pain (Myalgia) 07/07/2013 (contrast dye) Hydromorphone Other (See Comments) 07/07/2013 Tolerated 04/11 Morphine Sulfate 07/07/2013 delusional Nickel 09/17/2012 Skin breakout Oxycodone-Acetaminophen Unknown 07/07/2013 Patient suspects she got too much Rosuvastatin Calcium 07/07/2013 Muscle aches Contrast Dye High 07/11/2012 Medications Cholecalciferol (VITAMIN D) 2000 UNITS CAPS Take 1 capsule by mouth every morning Active Pravastatin Sodium (PRAVACHOL PO) Take 40 mg by mouth every morning Active escitalopram (LEXAPRO) 20 MG tablet Take 1 tablet by mouth every morning 04/16/2020 Active ezetimibe (ZETIA) 10 MG tablet Take 1 tablet by mouth every morning 05/05/2020 Active lisinopril (ZESTRIL) 10 MG tablet Take 10 mg by mouth every morning 05/06/2020 Active vitamin C (ASCORBIC ACID) 100 MG tablet Take 1,000 mg by mouth every morning Active calcium carbonate-vitam in D (OS-BRITTON) 500-400 MG-UNIT tablet Take 1 tablet by mouth every morning Active oxyCODONE (ROXICODONE) 5 MG tabletIndicatio ns:Acute bilateral low back pain without sciatica Take 1-2 tablets (5-10 mg) by mouth every 4 hours as needed for moderate to severe pain 30 tablet 04/13/2021 Active gabapentin (NEURONTIN) 800 MG tabletIndicatio ns:Acute bilateral low back pain without sciatica Take 1 tablet (800 mg) by mouth 3 times daily 04/13/2021 Active LORazepam (ATIVAN) 0.5 MG tabletIndicatio ns:Acute bilateral low back pain without sciatica Take 1 tablet (0.5 mg) by mouth daily as needed for anxiety 04/13/2021 Active acetaminophen (TYLENOL) 325 MG tabletIndicatio ns:Acute bilateral low back pain without sciatica Take 2 tablets (650 mg) by mouth every 6 hours 04/13/2021 Active polyethylene glycol (MIRALAX) 17 GM/Dose powderIndicatio ns:Acute bilateral low back pain without sciatica Take 17 g by mouth daily 510 g 04/13/2021 Active methocarbamol (ROBAXIN) 500 MG tabletIndicatio ns:S/P fusion of thoracic spine Take 1 tablet (500 mg) by mouth 4 times daily 40 tablet 1 07/04/2021 Active aspirin (ASA) 81 MG EC tabletIndicatio ns:History of coronary artery disease Take 1 tablet (81 mg) by mouth daily 07/04/2021 Active Active Problems Problem Noted Date Diagnosed Date Osteoporosis 08/26/2020 Acute midline thoracic back pain 08/09/2020 Overview (08/09/2020): Added automatically from request for surgery [id number] Open wound of back, complicated 03/27/2016 Iatrogenic hypotension 08/25/2015 Lumbar stenosis 08/08/2014 Acquired scoliosis 08/03/2014 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 Acute post-operative pain 11/13/2012 Encounter for long-term opiate analgesic use Back pain 11/10/2012 Lumbar radiculopathy 11/09/2012 Lumbar canal stenosis 11/05/2012 Chronic low back pain 08/15/2012 Spinal stenosis, lumbar jc on, with neurogenic claudication 07/16/2012 Pain medication agreement 05/30/2011 Displacement of lumbar inter vertebral disc without myelopathy 06/15/2010 Major depressive disorder, single episode in ful l remission 06/15/2010 Other type of migraine 06/15/2010 Panic disorder without agoraphobia 06/15/2010 Presbyacusis 06/15/2010 Seborrheic dermatitis, unspecified 06/15/2010 Vitamin D deficiency 06/15/2010 Hyperlipidemia Hypertension CAD (coronary artery disease) Overview (07/05/2014): 1995: PCI RCA 2003: Stent to RCA 2005: Stent diagonal and cfx Resolved Problems Problem Noted Date Diagnosed Date Resolved Date Lumbago 09/27/2006 11/12/2006 Pain in joint, lower leg 08/23/2006 Aftercare following joint replacement 08/23/2006 11/12/2006 Knee joint replacement by other means 08/23/2006 11/12/2006 Immunizations Immunization Administration Dates Next Due Flu 65+ (Fluad) 09/08/2012 Flu, Unspecified 09/18/2017,09/11/2016, 5 Influenza (High Dose) Trival ent,PF (Fluzone) 10/12/2019,09/18/2018,08/25/2015,2013 Influenza (IIV3) PF 06/18/2013,08/16/2011,2009 Influenza Vaccine, 6+MO IM (QUADRIVALENT W/PRESERVATIVES) 10/17/2020 Mantoux Tuberculin Skin Test 11/13/2012 Pneumo Conj 13-V (2010&after) 03/23/2015 Pneumococcal 23 valent 03/17/2012,11/13/2006 TDAP (Adacel,Boostrix) 09/11/2016,10/29/2012 Tdap (Adult) Unspecified Formulation 11/22/2003 Zoster recombinant adjuvante d (Shingrix) 10/12/2019,03/04/2019 Zoster vaccine, live 10/24/2014 Family History Medical History Relation Comments Heart Disease Father chf Heart Disease Mother Breast Cancer Sister Relation Status Comments Father Mother Sister Alive Social History Tobacco Use Types Packs/Day Years Used Date Smoking Tobacco: Former Cigarettes 0.5 48 S tarted: 03/07/2014 Smokeless Tobacco: Never Tobacco Cessation:Counseling Given: No Comments:1 PPD x 54 years- quit at age 71. Currently enrolled in a [place] LDCT lung screening q year. Alcohol Use Standard Drinks/Week Comments Yes 0 (1 standard drink = 0.6 oz pur e alcohol) 1 drink every 2 weeks PHQ-2 Answer Date Recorded PHQ-2 Score 1 07/04/2021 Adolescent Education Answer Date Record ed Getting School Help Needed Not on file 08/22 Comments No Sex and Gender Information Value Date Recorded Sex Assigned at Not on file Legal Sex Female 3:30 AM TRIAGE REGISTER NURSE Gender Identity Not on file Sexual Orientation Not on file Last Filed Vital Signs Vital Sign Reading Time Taken Comments Blood Pressure 118/69 07/04/2021 1:41 PM CDT Pulse 62 07/04/2021 1:41 PM CDT Temperature 36.2 C (97.1 F) 07/04/2021 9:07 AM CDT Respiratory Rate 16 07/04/2021 1:41 PM CDT Oxygen Saturation 98% 07/04/2021 1:41 PM CDT Inhaled Oxygen Concentration - - Weight 78.9 kg (174 lb) 07/04/2021 1:41 PM CDT Height 159 cm (5' 2.6) 07/04/2021 1:41 PM CDT Body Mass Index 31.22 07/04/2021 1:41 PM CDT Plan of Treatment Not on file Medical Devices Implanted Type Area Gyroscopic Instrument Mechanic Device Identifier Shelf Expiration Date Model / Serial / Lot Graft Bone Crush Canc 30ml [id number] Implanted:Qty : 1 on 03/06/2021 by Weston Bear MD at [facility] Bone/Tissu e/Biologic N/A: Spine Thoracic [employer] MAYER 11/24/2023 [id number] / [id number] / Imp Scr Set Medt Solera Break Off 5.5mm Ti [id number] Implanted:Qty : 14 on 03/06/2021 by Weston Bear MD at [facility] Metallic Hardware/A nchor N/A: Spine Thoracic [employer] [id number] / / N/A Imp Scr Medt 5.5/6.0mm Solera 6.5x50mm Ma [id number] Implanted:Qty : 2 on 03/06/2021 by Weston Bear MD at [facility] Metallic Hardware/A nchor N/A: Spine Thoracic [employer] [id number] / / N/A Imp Scr Medt 5.5/6.0mm Solera 5.5x45mm Ma [id number] Implanted:Qty : 3 on 03/06/2021 by Weston Bear MD at [facility] Metallic Hardware/A nchor N/A: Spine Thoracic [employer] [id number] / / N/A Imp Scr Medt 5.5/6.0mm Solera 4.5x45mm Ma [id number] Implanted:Qty : 1 on 03/06/2021 by Tiara Granados MD at [facility] Metallic Hardware/A nchor N/A: Spine Thoracic [employer] [id number] / / N/A Imp Scr Medt 5.5/6.0mm Solera 4.5x40mm Ma [id number] Implanted:Qty : 6 on 03/06/2021 by Tiara Granados MD at [facility] Metallic Hardware/A nchor N/A: Spine Thoracic [employer] [id number] / / N/A Imp Scr Medt 5.5/6.0mm Solera 4.5x35mm Ma [id number] Implanted:Qty : 2 on 03/06/2021 by Tiara Granados MD at [facility] Metallic Hardware/A nchor N/A: Spine Thoracic [employer] [id number] / / N/A Imp Jorge Medt Solera Lined 5.3a557ot Chr [id number] Implanted:Qty : 1 on 03/06/2021 by Weston Bear MD at [facility] Metallic Hardware/A nchor N/A: Spine Thoracic [employer] [id number] / / N/A Legacy 5.5ti 35mm Screw Implanted:Qty : 1 on 11/05/2012 by Weston Patel MD at [facility] N/A: Thoracic [employer] [id number] / / Imp Scr Danek 5.5x45mm Legacy Ti Implanted:Qty : 2 on 11/05/2012 by Weston Patel MD at [facility] N/A: Thoracic [employer]-DANEK [id number] / / Imp Scr Danek Legacy Breakoff Set 5.5mm Ti [id number] Implanted:Qty : 4 on 11/05/2012 by Weston Patel MD at [facility] N/A: Spine Lumbar [employer]-DANEK [id number] / / Graft Bone Crush Canc 30ml [id number] Implanted:Qty : 1 on 11/05/2012 by Weston Patel MD at [facility] N/A: Spine Lumbar MUSCULOSKELETAL MAYER 06/29/2015 [id number] / [id number] / Interbody Fusion Device Implanted:Qty : 2 on 11/05/2012 by Weston Patel MD at [facility] N/A: Thoracic [employer] 05/12/2020 [id number] / / [id number] Imp Jogre Danek 5.5x30mm Ti Implanted:Qty : 2 on 11/05/2012 by Weston Patel MD at [facility] N/A: Spine Lumbar [employer]ANE[employer] [id number] / / Imp Scr Danek 5.5x40mm Legacy Ti Implanted:Qty : 1 on 11/05/2012 by Weston Patel MD at [facility] N/A: Spine Lumbar [employer]ANE[employer] [id number] / / Imp Tray Tibial Depuy Size 2.5 [id number] Implanted:Qty : 1 on 07/09/2013 by Petty Busby MD at [facility] Right: Knee [employer]- 04/17/2018 [id number] / / [id number] Imp Comp Patella Depuy 3 Post Rnd 32mm [id number] Implanted:Qty : 1 on 07/09/2013 by Petty Busby MD at [facility] Right: Knee [employer]- 04/17/2017 [id number] / / [id number] Imp Insert Tibial Depuy Rp Stab Size 3 10mm -1 Implanted:Qty : 1 on 07/09/2013 by Petty Busby MD at [facility] Right: Knee [employer]- 05/17/2018 [id number] / / [id number] Imp Comp Femoral Depuy Knee Sz 3 Rt [id number] Implanted:Qty : 1 on 07/09/2013 by Petty Busby MD at [facility] Right: Knee [employer]- 05/17/2023 [id number] / / [id number] Bone Cement Simplex Full Dose 6191-1-001 Implanted:Qty : 1 on 07/09/2013 by Petty Busby MD at [facility] Right: Knee [employer] 12/18/2015 6191-1-001 / / [id number] Bone Cement Simplex 1/2 Dose 6188-1-001 Implanted:Qty : 1 on 07/09/2013 by Petty Busby MD at [facility] Right: Knee [employer] 06/17/2015 6188-1-001 / / [id number] Imp Spacer Medt Sovereign 12deg Med [id number] Implanted:Qty : 1 on 08/03/2014 by Weston Patel MD at [facility] N/A: Spine Lumbar [employer] 05/15/2018 [id number] / / [id number] Graft Bone Chips Canc 30ml Implanted:Qty : 1 on 08/03/2014 by Weston Patle MD at [facility] N/A: Spine Lumbar [employer] 12/03/2016 364254 / [id number] / Graft Bone Infuse Bmp Lg [id number] Implanted:Qty : 1 on 08/03/2014 by Weston Patel MD at [facility] N/A: Spine Lumbar [employer] 01/17/2016 [id number] / / [id number] Imp Spacer Medt Sovereign 12deg Med [id number] Implanted:Qty : 1 on 08/03/2014 by Weston Patel MD at [facility] N/A: Spine Lumbar [employer] 07/12/2018 [id number] / / [id number] Graft Bone Crush Canc 30ml [id number] Implanted:Qty : 1 on 08/03/2014 by Tiara Granados MD at [facility] N/A: Spine Lumbar MUSC[employer]LETAL MAYER 02/09/2017 300033 / [id number] / Graft Bone Crush Canc 30ml [id number] Implanted:Qty : 1 on 08/03/2014 by Weston Patel MD at [facility] N/A: Spine Lumbar MUSC[employer]OSKELETAL MAYER 01/28/2017 104845 / [id number] / Imp Scr Medt Longitude Ii 9.3i378pi Can Ma [id number] Implanted:Qty : 2 on 08/03/2014 by Tiara Granados MD at [facility] N/A: Spine Lumbar [employer] [id number] / / [id number] Imp Scr Medt 5.5/6.0mm Solera 6.5x50mm Ma [id number] Implanted:Qty : 5 on 08/03/2014 by Tiara Granados MD at [facility] N/A: Spine Lumbar [employer] [id number] / / [id number] Imp Scr Medt 5.5/6.0mm Solera 6.5x40mm Ma [id number] Implanted:Qty : 1 on 08/03/2014 by Tiara Granados MD at [facility] N/A: Spine Lumbar [employer] [id number] / / [id number] Imp Scr Medt 5.5/6.0mm Solera 6.5x45mm Ma [id number] Implanted:Qty : 1 on 08/03/2014 by Tiara Granados MD at [facility] N/A: Spine Lumbar [employer] [id number] / / [id number] Imp Scr Medt 5.5/6.0mm Solera 6.5x55mm Ma [id number] Implanted:Qty : 2 on 08/03/2014 by Tiara Granados MD at [facility] N/A: Spine Lumbar [employer] [id number] / / [id number] Imp Scr Medt 5.5/6.0mm Solera 5.5x45mm Ma [id number] Implanted:Qty : 1 on 08/03/2014 by Tiara Granados MD at [facility] N/A: Spine Lumbar [employer] [id number] / / [id number] Imp Device Fusion Interbody Medt Crescnt 60t40aq [id number] Implanted:Qty : 1 on 08/03/2014 by Tiara Granados MD at [facility] N/A: Spine Lumbar [employer] 02/12/2020 [id number] / / [id number] Imp Device Fusion Interbody Medt Crescnt 30x9mm [id number] Implanted:Qty : 1 on 08/03/2014 by Tiara Granados MD at [facility] N/A: Spine Lumbar [employer] 02/01/2020 [id number] / / [id number] Imp Jorge Danek Ccm 5.8m283xm [id number] Implanted:Qty : 2 on 08/03/2014 by Tiara Granados MD at [facility] N/A: Spine Lumbar [employer] [id number] / / Imp Scr Danek Legacy Breakoff Set 5.5mm Ti [id number] Implanted:Qty : 4 on 08/03/2014 by Tiara Granados MD at [facility] N/A: Spine Lumbar [employer]DANEK [id number] / / Imp Scr Medt Sovereign Self Tap 5.5x20mm [id number] Implanted:Qty : 2 on 08/03/2014 by Tiara Granados MD at [facility] N/A: Spine Lumbar [employer] [id number] / / Imp Scr Set Medt Solera Break Off 5.5mm Ti [id number] Implanted:Qty : 16 on 08/03/2014 by Tiara Granados MD at [facility] Explanted:Qty : 2 on 03/27/2016 by Shikha Thompson MD at [facility] Explanted:Qty : 2 on 03/06/2021 by Weston Bear MD at [facility] N/A: Spine Lumbar [employer] [id number] / / [id number] Axial Connector Implanted:Qty : 2 on 03/06/2021 by Weston Bear MD at [facility] N/A: Spine Thoracic [employer] [id number] / / N/A 5.5 Break Off Implanted:Qty : 2 on 03/06/2021 by Weston Bear MD at [facility] N/A: Spine Thoracic [employer] [id number] / / N/A Standard Break Off Implanted:Qty : 8 on 03/06/2021 by Tiara Granados MD at [facility] N/A: Spine Thoracic [employer] [id number] / / N/A Side Loading [place] Implanted:Qty : 2 on 03/06/2021 by Tiara Granados MD at [facility] N/A: Spine Thoracic [employer] [id number] / / N/A Explanted Type Area Gyroscopic Instrument Mechanic Device Identifier Shelf Expiration Date Model / Serial / Lot Imp Scr Medt 5.5/6.0mm Solera 4.5x40mm Ma [id number] Implanted:Qty: 1 on 08/03/2014 by Tiara Granados MD at [facility] Explanted:Qty: 1 on 03/27/2016 by Shikha Thompson MD at [facility] N/A: Spine Lumbar [employer] [id number] / / [id number] Imp Scr Medt 5.5/6.0mm Solera 5.5x40mm Ma [id number] Implanted:Qty: 3 on 08/03/2014 by Tiara Granados MD at [facility] Explanted:Qty: 1 on 03/27/2016 by Shikha Thompson MD at [facility] Explanted:Qty: 2 on 03/06/2021 by Weston Bear MD at [facility] N/A: Spine Lumbar [employer] [id number] / / [id number] Insurance MEDICARE [facility] MEDICARE SUPPLEMENT MEDICARE [place] MEDICARE SU[place] Advance Directives For more information, please contact: [phone] * Full Code (Latest Code Status on File) Date Activated Date Inactivated Comments 04/11/2021 5:33 AM 04/13/2021 11:47 AM All basic a nd advanced life-sustaining interventions are performed as appropriate Question Answer Comments Code status determined by: Discussion with patie nt/ legal decision maker * Full Code Date Activated Date Inactivated Comments 03/06/2021 5:21 PM 03/11/2021 3:44 PM All basic an d advanced life-sustaining interventions are performed as appropriate Question Answer Comments Code status determined by: Discussion with patie nt/ legal decision maker * Full Code Date Activated Date Inactivated Comments 03/27/2016 12:04 PM 03/28/2016 2:03 PM * Full Code Date Activated Date Inactivated Comments 08/08/2014 1:23 PM 08/19/2014 12:34 PM * Full Code Date Activated Date Inactivated Comments 08/03/2014 7:57 PM 08/08/2014 12:41 PM Care Teams Instructional Services Specialist Relationship Specialty [place] [address] [address] [address] PCP - General Family Medicine 07/04/21
--- OUTSIDE RECORDS SUMMARY | 2025-05-30 12:06 | XMS_ITS | Clinical Summary ---
Author Organization [facility] Address [address] [place] [address] Care Team Providers Care Photonics Engineering Technologist Name Role Phone Dee Dee Gutierres Primary Care Provider Allergies Active Allergy Reactions Criticality Noted Date Comments Atorvastatin Medium 01/09/2023 Myalgia/myositis Diatrizoate Anaphylaxis High 01/09/2023 Hydromorphone Medium 01/09/2023 hallucinations Iodinated Contrast Media Anaphylaxis High 01/09/2023 Morphine Low 01/09/2023 hallucinations Nickel Rash Low 01/09/2023 Rosuvastatin 01/09/2023 Myalgia/myositis Medications polyethylene glycol (MIRALAX) 17 g packet Take 17 g by mouth daily as needed. Active acetaminophen (TYLENOL) 500 MG tablet Take 2 tablets (1,000 mg total) by mouth every 6 (six) hours as needed for mild pain. Active ascorbic acid 500 MG tablet Take 2 tablets (1,000 mg total) by mouth in the morning. Active calcium-vitamin D 500-200 MG-UNIT per tablet Take 1 tablet by mouth in the morning. Therapeutic substitution for calcium/vitamin d 500mg/10mcg. Active cholecalciferol (VITAMIN D3) 50 MCG (2000 UT) tablet tablet Take 1 tablet (2,000 Units total) by mouth in the morning. Active Evolocumab 140 MG/ML solution auto-injector Inject 1 mL (140 mg total) under the skin every 14 (fourteen) days. Patient own medication; unknown last dose Active lidocaine (LIDODERM) 5 % Apply 1 patch topically in the morning. Remove & Discard patch within 12 hours or as directed by MD. Active tolterodine LA (DETROL LA) 4 MG 24 hr capsule Take 1 capsule (4 mg total) by mouth in the morning. Active Guar Gum (Nutrisource Fiber) pack Take 1 packet by mouth in the morning. Supplied from [facility]. Substituted for fiber tablets. Active Active Problems Problem Noted Date Diagnosed Date Collapsed vertebra, not else where classified, thoracic region, sequela of fracture 01/15/2023 Immunizations Immunization Administration Dates Next Due Influenza Split High Dose Pr eservative Free IM 08/25/2022,08/18/2022 Moderna SARS-CoV-2 Vaccination 08/25/2022 Pfizer SARS-CoV-2 Vaccination 02/28/2022, 021,12/19/2020 Pneumococcal Polysaccharide 03/17/2012, 6 Social History Tobacco Use Types Packs/Day Years Used Date Smoking Tobacco: Former Cigarettes Smokeless Tobacco: Never Tobacco Cessation:Counseling Given: Not Answered Alcohol Use Standard Drinks/Week Comments Yes 1 (1 standard drink = 0.6 oz pur e alcohol) Comments Unknown Sex and Gender Information Value Date Recorded Sex Assigned at Not on file Legal Sex Female 12:17 PM EST Gender Identity Not on file Sexual Orientation Not on file Last Filed Vital Signs Vital Sign Reading Time Taken Comments Blood Pressure 115/59 01/27/2023 6:30 AM MST Pulse 67 01/27/2023 6:30 AM MST Temperature 36.1 C (97 F) 01/27/2023 6:30 AM MST Respiratory Rate 18 01/27/2023 6:30 AM MST Oxygen Saturation 98% 01/27/2023 6:30 AM MST Inhaled Oxygen Concentration - - Weight 74.4 kg (164 lb) 01/23/2023 12:01 AM MST Height 157.5 cm (5' 2) 01/15/2023 2:45 PM MST Body Mass Index 30 01/15/2023 2:45 PM MST Plan of Treatment Health Maintenance Due Date Last Done Comments Annual Visit Topic 1946 Hepatitis C Screening 1963 Pneumococcal Vaccine: 65+ Years (1 of 4 - PCV) 03/17/2013 DTaP/Tdap/Td Vaccines (3 - T d or Tdap) 09/11/2026 09/11/2016, 10/29/2012, 11/22/2003 HIB Vaccines Aged Out No longer eligi ble based on patient's age to complete this topic HPV Vaccines Aged Out No longer eligi ble based on patient's age to complete this topic Hepatitis A Vaccines Aged Out No long er eligible based on patient's age to complete this topic Hepatitis B Vaccines Aged Out No long er eligible based on patient's age to complete this topic IPV Vaccines Aged Out No longer eligi ble based on patient's age to complete this topic Meningococcal Vaccine Aged Out No kayleen andrea eligible based on patient's age to complete this topic Advance Directives * Full Resuscitation (Latest Code Status on File) Date Activated Date Inactivated Comments 01/15/2023 3:13 PM 01/27/2023 4:13 PM Care Teams Photonics Engineering Technologist Relationship Specialty Start Date End Date Dee Dee Gutierres [address] [place] [id number] PCP - General Internal Medicine 01/16/23
--- OUTSIDE RECORDS SUMMARY | 2025-05-30 12:06 | XMS_ITS | Encounter Summary ---
Author Organization [facility] Address [address] [place] [address] Care Team Providers Care Ward Secretary Name Role Phone Dee Dee Gutierres M.D. Primary Care Provider [phone] Encounter Details Date Type Department Care Team (Late st Contact Info) Description 11/20/2017 Historic Ophthalmology HX ARZ NO MAPPING Jayson Huerta O.D. Social History Tobacco Use Types Packs/Day Years Used Date Smoking Tobacco: Never Assessed Comments Unknown Sex and Gender Information Value Date Recorded Sex Assigned at Female 01/07/2023 2:39 PM BRIM SETTER Legal Sex Female 11:08 PM BRIM SETTER Gender Identity Female 01/07/2023 2:39 PM BRIM SETTER Sexual Orientation Straight 09/14/2018 9: 19 PM CDT documented as of this encounter Consult Notes * Jayson Huerta O.D. - 11/20/2017 8:41 AM MST Result Type: OPH Consult Result Date: 20 November 2017 08:41 MST Result Status: Modified Result Title: Ophthalmology Note Performed By: Jayson Huerta OD on 20 November 2017 09:14 MST Verified By: Jayson Huerta OD on 20 November 2017 09:14 MST *Final* Ophthalmology Note Patient: XUAN LINARES Age: 72 years Sex: Female : 1945 Author: Jayson Huerta OD Visit Information Visit type: Ophthalmology Visit Information 20-Nov-2017 07:41 MST Ophthalmology Visit Type Other: Wanting to establish care here in ophthalmology. [place]'t been see by an eye doctor in 8-10 years. [facility] seems foggy x 1 year. Lights at night look like diamonds. Wants new Rx. H/o of LASIK prior to 2000. History of Present Illness Patient denies ocular pressure and pain. Denies flashes. Occasional floaters OU, no changes. No eye gtts., . Histories Current medications: (Selected) Outpatient Medications Ordered Perform Medication Reconciliation: 1 Each, MISC, ONCE Prescriptions Prescribed Medrol Dosepak 4 mg oral tablet: 1 Pkt, PO, ONCE, as directed on package labeling, 21 Tab, 0 Refill(s) PROzac 40 mg oral capsule: 40 mg, 1 Cap, PO, Daily, 90 Cap, 3 Refill(s) Pravachol 80 mg oral tablet: 80 mg, 1 Tab, PO, Daily, 90 Tab, 3 Refill(s) Documented Medications Documented ALPRAZolam 0.25 mg oral tablet: 0.25 mg, 1 Tab, PO, BID, PRN: as needed for anxiety, 0 Refill(s) Calcium 600 +D: 1 Tab, PO, 0 Refill(s) Fiber: 5 Tab, PO, Daily Vitamin D3 1000 intl units oral tablet: 1,000 units, 1 Tab, PO, Daily, 0 Refill(s) aspirin 81 mg oral tablet: 81 mg, 1 Tab, PO, Daily, 0 Refill(s). Allergies: Allergic Reactions (Selected) Severe Iodinated radiocontrast dyes- Anaphylaxis and peeling of skin. Severity Not Documented Atorvastatin- Myalgia/myositis - multiple. Crestor- Myalgia/myositis - multiple. HYDROmorphone- No reactions were documented. Morphine- No reactions were documented. Nickel Sulfate- No reactions were documented. Percocet 5/325- No reactions were documented.. Family History: GLAUCOMA Paternal Grandfather . Procedure history: LASIK ([id number]). . Social History Social & Psychosocial Habits No Data Available . Problem list: All Problems Need Vaccine (IN) Influenza / SNOMED CT 6425624982 / Confirmed Hyperlipidemia NOS / SNOMED CT 03535277 / Confirmed [facility]) [facility]OS [facility] / Confirmed, Problems (ST) Coronary Artery Disease (CAD) NOS Hyperlipidemia NOS Need Vaccine (IN) Influenza , Coronary Artery Disease (CAD) NOS Hyperlipidemia NOS Need Vaccine (IN) Influenza . Physical Examination Oph Visual Acuity Distance 20-Nov-2017 07:41 MST Distance Acuity Right 20/30, -2 Distance Acuity Left 20/30, -1 Distance Pinhole Right Other: NI Distance Pinhole Left 20/25 Distance Correction Right With glasses Distance Correction Left With glasses Oph Visual Acuity Near 20-Nov-2017 07:41 MST Near Acuity Right 20/30, J 2 Near Acuity Left 20/25, J 1 Near Correction Right With glasses Near Correction Left With glasses Visual Acuity Near Testing at 14 inches Eyeglass/Contact lens measurements Oph Multifocal Measurement 20-Nov-2017 07:41 MST Multifocal Lens Type Progressive Multifocal Right +0.50+0.70g975 +2.75 ADD Multifocal Left -1.00+0.40n802 +2.75 ADD , Oph Manifest Refraction 20-Nov-2017 07:41 MST Manifest Refraction Right +0.75+0.69e628 20/30-1 +2.75 ADD 20/20 Manifest Refraction Left -0.75+0.01u770 20/25-2 +2.75 ADD 20/20 Oph Brightness Acuity Jewell 20-Nov-2017 07:41 MST BAT Right 20/50 BAT Left 20/40 Pupil Size Right 20-Nov-2017 07:41 MST Pupil Size Right 4mm Pupil Reactivity Right 20-Nov-2017 07:41 MST Pupil Reactivity Right 2+ Pupil Size Left 20-Nov-2017 07:41 MST Pupil Size Left 4mm Pupil Reactivity Left 20-Nov-2017 07:41 MST Pupil Reactivity Left 2+ Afferent Pupil Defect Right 20-Nov-2017 07:41 MST APD Right No afferent defect Afferent Pupil Defect Left 20-Nov-2017 07:41 MST APD Left No afferent defect Motility Ocular Motility 20-Nov-2017 07:41 MST Ocular Motility full in both eyes and the eyes are straight Visual whitfield Oph Visual Field 20-Nov-2017 07:41 MST Visual Field normal by confrontation Oph Intraocular Pressure 20-Nov-2017 07:41 MST IOP Right 14 IOP Left 17 IOP Instrument Used Right Applanation IOP Instrument Used Left Applanation Oph Dilation 20-Nov-2017 07:41 MST Dilation Right Eye 1% tropicamide, 2.5% phenylephrine Dilation Left Eye 1% tropicamide, 2.5% phenylephrine Mental status exam/ ready to learn: Oriented to person, place and time, Alert and appears ready to learn. External dch OU Sclera Normal OU Conj Normal OU Cornea clear, mild debris in tear film OU; s/p lasik OU; low lacrimal quiros OU AC deep and quiet OU Iris Normal OU Lens 2+NS, few vacuoles OU. Vitreous OD: pvd; OS: deep and quiet Disc 0.2 perfused, distinct margins OU Macula flat, avascular OU Vessels Normal OU Periphery No retinal breaks or detachments 360 OU. Assessment 1. Cataracts Mild visually significant, especially with glare at night. Patient elects to monitor. Glasses rx written and given. Educated about findings and discussed risks/benefits. Recommend DFE in 1 year to check on progression of cataracts 2. Dry eye Discussed environmental impact on dry eye 3. s/p LASIK OU Per patient had to have repeat procedure in the right eye. Goal was for monovision. . Reference: [facility]-[id number] SETTER documented in this encounter Plan of Treatment Upcoming Encounters Date Type Department Care Team (Latest Contact Info) Description 08/16/2025 7:50 AM [facility] Appointment Department of Laboratory Medicine and Pathology, [facility], in [place], [place] [address] [place] [address] Kaur Flynn M.D. [address] [place] [address] 08/16/2025 8:00 AM [facility] Ancillary Procedure Department of Radiology in [place], [place] [address] [place] [address] Kaur Flynn M.D. [address] [facility] [place] [address] 08/16/2025 10:00 AM [facility] Office Visit Division of Endocrinology in [place], [place] [address] [place] [phone] Kaur Flynn M.D. [address] [place] [address] documented as of this encounter Visit Diagnoses Not on filedocumented in this encounter Additional Health Concerns Infection Onset Date Last Indicated Resolved Time COVID19 Pending 10/17/2021 10/17/2021 10/17/2021 2 :40 PM BRIM SETTER COVID19 Pending 11/19/2021 11/19/2021 11/19/2021 3 :59 PM BRIM SETTER COVID19 Pending 02/16/2022 02/16/2022 02/16/2022 1 :28 PM CDT COVID19 Pending 12/31/2022 12/31/2022 12/31/2022 3 :51 PM BRIM SETTER documented as of this encounter Care Teams Ward Secretary Relationship Specialty Start Date End Date Dee Dee Gutierres M.D. [address] [place] [address] PCP - General Internal Medicine 08/14/21 documented as of this encounter
--- OUTSIDE RECORDS SUMMARY | 2025-05-30 12:06 | XMS_ITS | Encounter Summary ---
Author Organization [facility] Address [address] [place] [address] Care Team Providers Care Edger Feeder Name Role Phone Dee Dee Gutierres M.D. Primary Care Provider [phone] Reason for Visit * Reason Onset Date Comments Med Refill 05/10/2025 Encounter Details Date Type Department Care Team (Late st Contact Info) Description 05/10/2025 Refill Medallion Program in [place], [place] [address] [place] [address] Dee Dee Gutierres M.D. [address] [place] [address] Med Refill Social History Tobacco Use Types Packs/Day Years Used Date Smoking Tobacco: Former Cigarettes 1 54.9 1 11/18/1961 - 08/03/2017 Smokeless Tobacco: Never Comments:has been smokefree since 08/04 Alcohol Use Standard Drinks/Week Comments Yes 3 (1 standard drink = 0.6 oz pure alcohol) Very sporatic. Many weeks i have no alcohol [facility] Utilities Answer Date Recorded In the [...] your living situation today? I have a [facility] place to live 03/29/2025 Education Answer Date Recorded What is the highest level of school you have completed or the highest degree you have received? Some college, no degree 01/07/2022 Comments No Sex and Gender Information Value Date Recorded Sex Assigned at Female 01/07/2023 2:39 PM CELL STRIPPER Legal Sex Female 11:08 PM CELL STRIPPER Gender Identity Female 01/07/2023 2:39 PM CELL STRIPPER Sexual Orientation Straight 09/14/2018 9: 19 PM CDT documented as of this encounter Miscellaneous Notes * Telephone Encounter - Tom Obregon R.N., O.C.N. - 05/10/2025 10:10 AM MST Reviewed medication instructions and monitoring with patient; Patient in agreement with POC. documented in this encounter Plan of Treatment Upcoming Encounters Date Type Department Care Team (Latest Contact Info) Description 08/16/2025 7:50 AM [facility] Appointment Department of Laboratory Medicine and Pathology, [facility], in [place], [place] [address] [place] [address] Kaur Flynn M.D. [address] [place] [address] 08/16/2025 8:00 AM [facility] Ancillary Procedure Department of Radiology in [place], [place] [address] [place] [address] Kaur Flynn [place].D. [address] [place] [address] 08/16/2025 10:00 AM [facility] Office Visit Division of Endocrinology in [place], [place] [address] [place] [phone] Kaur Flynn M.D. [address] [place] [phone] documented as of this encounter Visit Diagnoses Diagnosis Urinary Tract Infection Site Not Specified- Primary documented in this encounter Additional Health Concerns Assessment Noted Time PHQ-9 Depression Total Score: 3 12/16/19 25 11:52 AM CELL STRIPPER documented as of this encounter Care Teams Edger Feeder Relationship Specialty Start Date End Date Dee Dee Gutierres M.D. [address] [place] [phone] PCP - General Internal Medicine 08/14/21 documented as of this encounter
--- OUTSIDE RECORDS SUMMARY | 2025-05-30 12:07 | XMS_ITS | Encounter Summary ---
Author Organization [facility] Address [address] [place] [address]. [place] [address] Care Team Providers Care Inside Sales Lead Name Role Phone Hilary Xiao MD Primary Care Provider [phone] Garcia Muñiz RN Unavailable Tiara Granados MD Unavailable [phone] Garcia Muñiz RN Unavailable Tiara Grnaados MD Unavailable [phone] Ham Mujica Primary Care Provider [phone] Hiral Mir MD Primary Care Provider [phone] Hiral Mir MD Unavailable [phone] Encounter Details Date Type Department Care Team (Late st Contact Info) Description 06/24/2006 Office Visit-[facility] [address] [place] [address] Unknown, DoctorMD Social History Tobacco Use Types Packs/Day Years Used Date Smoking Tobacco: Never Assessed Comments Unknown Sex and Gender Information Value Date Recorded Sex Assigned at Not on file Legal Sex Female 3:30 AM PRODUCT OPERATIONS ASSOCIATE Gender Identity Not on file Sexual Orientation Not on file documented as of this encounter Progress Notes * Unknown, Doctor, - 06/27/2006 9:53 AM CDT Progress Note Created by: Harpreet Brizuela M.D. DATE: 06/24/2006 XUAN LINARES DATE OF : 1945 AGE: [age] years old Referring Physician: HILARY XIAO Referring Clinic: [facility] CURRENT DIAGNOSES 1. - CAD, 414.00 2. - Hyperlipidemia, 272.4 3. - Hypertension, benign, 401.1 4. - Angina Pectoris, 413.9 ALLERGIES Angio dye, Severe skin reacton Medals, Skin reaction MEDICATIONS (including any changes made today) 1. Xanax 2 Mg, PRN 2. Aspirin 325 mg, 1 p.o. q.d. 3. Plavix 75 mg, 1 p.o. q.d. 4. Zetia 10 mg, 1 p.o. q.d. 5. Fluoxetine 10 mg, 40 mg qd 6. Calcium Citrate with Vitamin D 1500 mg-200 u, 1200 mg qd 7. Lisinopril 20 Mg, 1 p.o. q.d. 8. Zocor 40 mg, 1 p.o. qHS CHIEF COMPLAINTS Surgery clearance left knee HISTORY OF PRESENT ILLNESS It was my pleasure to see this delightful 60-year-old lady for followup of coronary artery disease.She is also here for preoperative clearance. She is a lady who had coronary artery disease which first started more than 10 years ago. She had angioplasty of the right coronary artery, and in 2002 she had a repeat procedure on her right coronary artery. This time a stent was inserted. She has not been followed up for about a year and a half. She returns today telling me she is completely free of chest pain or shortness of breath. Her exercise tolerance is limited by osteoarthritis of her knee for which a knee replacement has been scheduled. She was going to have arthroscopic knee surgery in [place] in the earlier part of this year. A preprocedure adenosine nuclear study was abnormal for possible anterior ischemia. At angiography, however, she was found to have significant distal circumflex artery disease, as well as disease in her diagonal system. Both of these areas were percutaneouslyrevascularized with drug-eluting stents. She continues to be asymptomatic. She has stopped smoking c ompletely. After the procedure in [place] Zetia was added for more aggressive management of her LDL. The levels we have show that her HDL is above 60, though her LDL was slightly above 100. Physical examination revealed well controlled blood pressure and unremarkable cardiovascular examination. PAST HISTORY Past Medical Illnesses: hyperlipidemia, hx of tobacco use, chronic knee pain, hypertension, anxiety, depression, panic attacks Past Cardiac Illnesses: angina Infectious Diseases: no previous history of significant infectious diseases. Surgical Procedures: tonsilectomy, D&C, hysterectomy-subtotal Prior to 1979, left knee meniscectomy, tubal ligation Trauma History: no previous history of significant trauma. Cardiology Procedures-Invasive: PTCA RCA 1994, PTCA with intracoronary stent placement of RCA 2002, PTCA with intracoronary stent placement of Diag 1 CFX 2005 Cardiology Procedures-Noninvasive: stress echocardiogram February 2003, (at [facility]), myocardial perfusion imaging (Nuclear) September 2003 Left Ventricular Ejection Fraction: 78 PMHx Stress Echo Results: positive for ischemia in RCA,normal LVS,LVF FAMILY HISTORY: Father - Age 75, CHF; Mother - emphysema at 72 and hypertension; Brother 1 - hypertension; CARDIAC RISK FACTORS Tobacco Abuse: used to smoke, but quit; Family History of Heart Disease: negative; Hyperlipidemia: positive, controlled; Hypertension: negative; Diabetes Mellitus: negative; Prior History of Heart Disease: positive; Obesity:negative; Sedentary Life Style:positive; Age:positive; Menopausal:positive,biological menopause, on hormonal replacement SOCIAL HISTORY Alcohol Use - beer and 3-4/wk or wine; Smoking - used to smoke but quit and started then stopped again this wk; Diet - caffeine use-1-2 per day, decaff pop/coffee and regular diet without modifications; Lifestyle - ; Exercise - golf; Seat Belt Use - always; 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 EYES wears eye glasses/contact lenses EARS, NOSE, THROAT, MOUTH partial hearing loss RESPIRATORY denies dyspnea, snoring, cough, wheezing or hemoptysis. ABDOMINAL denies change in bowel habits, dyspepsia, ulcer disease, hematochezia or melena. GENITOURINARY-FEMALE post menopausal on hormonal replacement MUSCULOSKELETAL denies any history of arthritic symptoms or back problems. NEUROLOGICAL negative for headaches PSYCHIATRIC depression, on meds ENDOCRINE hyperlipidemia HEMATOLOGICAL/IMMUNOLOGIC denies any food allergies, seasonal allergies, bleeding disorders. PHYSICAL EXAMINATION VITAL SIGNS: Blood Pressure: 120/70 Sitting, Left arm, regular cuff Pulse- 80.00/min. Weight- 168.00 lbs. Height- 64.00 Temperature- .00 CONSTITUTIONAL cooperative, alert and oriented,well developed, well nourished, in no acute distress. SKIN warm and dry to touch, no apparent skin lesions, or masses noted. HEAD normocephalic, atraumatic EYES Pupils equal and round, conjunctivae and lids unremarkable, sclera white, no xanthalasma ENT ears, nose and throat unremarkable NECK JVP normal, no carotid bruit, thyroid not enlarged CHEST clear to auscultation, normal A-P diameter CARDIAC normal 1st and 2nd heart sounds, regular rhythm, apical impulse not palpable ABDOMEN non-tender, no masses, no bruits, aorta, liver and spleen not palpated, bowel sounds normal PERIPHERAL PULSES pulses full and equal in all extremities EXTREMITIES & BACK no clubbing, cyanosis or edema NEUROLOGICAL no gross motor deficits noted, affect appropriate, oriented to time, person and place. MEDICATIONS UPDATED TODAY: Aspirin 325 mg, 1 p.o. q.d., DIRECTED Plavix 75 mg, 1 p.o. q.d., DIRECTED Zetia 10 mg, 1 p.o. q.d., DIRECTED Fluoxetine 10 mg, 40 mg qd, DIRECTED MEDICATION STOPPED TODAY: Premarin 0.625 mg, Premarin 0.625 Mg and Aspir-Low 81 mg IMPRESSIONS/PLAN I do think Mrs. Linares is quite stable. As she was asymptomatic prior to her knee surgery, I think we should repeat a stress nuclear study prior to her having knee surgery. If this is normal I think we can also stop her Plavix. We will most likely let her know the results by phone, and I shall follow up with her in six months' time. TODAYS ORDERS 1. [facility] Infusion 1 week 2. Return Visit 6 months Harpreet Briuzela M.D. documented in this encounter Plan of Treatment Not on file documented as of this encounter Visit Diagnoses Not on filedocumented in this encounter Additional Health Concerns Infection Onset Date Last Indicated Resolved Time COVID-19 09/09/2020 09/09/2020 09/30/2020 11:4 0 PM PRODUCT OPERATIONS ASSOCIATE Rule Out COVID-19 03/20/2021 03/20/2021 03/21/2021 6:32 PM CDT COVID-19 04/11/2021 04/11/2021 05/02/2021 11:3 9 PM CDT documented as of this encounter Care Teams Inside Sales Lead Relationship Specialty Start Date End Date Hilary Xiao MD PCP - General Family Practice 07/11/12 08/10/20 Ham Mujica [address] [place] [address] PCP - General Internal Medicine 02/13/21 07/03/21 [place] [address] [address] [address] PCP - General Family Medicine 07/04/21 Garcia Muñiz, RN Nurse Coordinator Neurological Surgery 04/23/14 7 Tiara Granados MD [address] [address] Neurological Surgery 04/14/15 12/09/16 Garcia Muñiz, RN Specialty Resource Coordinator Neurological Surgery 08/10/20 07/03/21 Tiara Granados MD [address] [place] [address] Assigned Neuroscience Provider 09/09/20 01/04/23 [place] [address] [address] [address] Assigned PCP 06/08/21 08/09/24 documented as of this encounter
--- OUTSIDE RECORDS SUMMARY | 2025-05-30 12:07 | XMS_ITS | Clinical Summary ---
Author Organization [facility] Address [address] [place] [id number] Care Team Providers Care Agricultural Specialist Name Role Phone Tiara Granados MD Unavailable [facility] Primary Care Provider U navailable Allergies Active Allergy Reactions Criticality Noted Date Comments Atorvastatin Myalgia 06/15/2010 lipitor Rosuvastatin Acute Tubular Necrosis,Myalgia 03/20/2013 Diatrizoate Allergen 06/15/2010 ivp dye Hydromorphone *Unknown 08/25/2015 Delusions Morphine Other - Describe In Comment Field 02/23/2013 Highly Allergic. Blood pressure would drop. Nickel Sulfate Rash 08/25/2015 Skin breakout Oxycodone-Acetaminophen Hives 06/15/2010 percocet Medications cholecalciferol (VITAMIN D) 1,000 unit tablet Take 1 tablet by mouth once daily. 0 0 Active aspirin enteric coated (ECOTRIN) 325 mg tablet Take 1 tablet by mouth once daily with a meal. 0 5 Active calcium carbonate-cholecalc iferol, 600mg-200 units, (CALCIUM 600 + D,3,) tablet Take 1 tablet by mouth 2 times daily with meals. 0 5 Active ALPRAZolam (XANAX) 0.25 mg tabletIndications:P anic disorder without agoraphobia,Major depressive disorder, single episode in full remission Take 1 tablet by mouth 2 times daily. When needed 30 tablet 1 5 Active acetaminophen (TYLENOL) 325 mg tablet Take 650 mg by mouth. 4 Active pravastatin (PRAVACHOL) 40 mg tabletIndications:M ixed hyperlipidemia Take 1 tablet by mouth at bedtime. 90 tablet 3 5 Active HYDROcodone-acetami nophen, 5-325 mg, (NORCO) per tablet Take 1 tablet by mouth 3 times daily if needed. 0 6 Active FLUoxetine (PROZAC) 40 mg capsuleIndications: Panic disorder without agoraphobia,Major depressive disorder, single episode in full remission TAKE ONE CAPSULE BY MOUTH EVERY MORNING 30 capsule 2 6 Active Active Problems Problem Noted Date Diagnosed Date Iatrogenic hypotension 08/25/2015 Pain medication agreement 05/30/2011 HTN (hypertension) 06/15/2010 Major depressive disorder, single episode in ful l remission 06/15/2010 Seborrheic dermatitis, unspecified 06/15/2010 Panic disorder without agoraphobia 06/15/2010 Coronary atherosclerosis of [place] coronary kay ry 06/15/2010 Mixed hyperlipidemia 06/15/2010 Other forms of migraine, wit hout mention of intractable migraine without mention of status migrainosus 06/15/2010 DJD (degenerative joint disease) of knee 010 Displacement of lumbar inter vertebral disc without myelopathy 06/15/2010 Unspecified vitamin D deficiency 06/15/2010 Presbyacusis 06/15/2010 Osteoporosis Immunizations Immunization Administration Dates Next Due Influenza, High-dose Inactivated 08/25/2015,090 06/2014 Influenza, IIV3 (Age >=3 years) 08/19/2013,09/08,08/16/2011 Pneumococcal Poly,23-Valent (Pneumovax) 03/17/20 12,11/13/2006 Pneumococcal conj 13-Valent (Prevnar 13) 015 Td (Age >=7 Years) 11/22/2003 Tdap 10/29/2012 Zoster (Zostavax-ZVL, live) 10/25/2014 Family History Medical History Relation Name Comments Heart Disease Father CHF ?[place] Hypertension Mother COPD smoker Cancer-breast Sister 1 Cancer-ovarian Sister 2 Psychiatric illness Sister 2 bipolar Relation Name Status Comments Brother 1 Alive Brother 2 Alive Father Maternal Grandfather Maternal Grandmother Mother Paternal Grandfather Paternal Grandmother Sister 1 Alive Sister 2 Alive Sister 3 Alive Sister 4 Alive Social History Tobacco Use Types Packs/Day Years Used Date Smoking Tobacco: Former Cigarettes Q uit: 12/05/2011 Smokeless Tobacco: Never Tobacco Cessation:Counseling Given: Yes Alcohol Use Standard Drinks/Week Comments Yes 0 (1 standard drink = 0.6 oz pure alcohol) occasional/ 1 beer every 2 weeks Comments No Sex and Gender Information Value Date Recorded Sex Assigned at Not on file 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 Gender Identity Not on file Sexual Orientation Not on file Obstetrics History Para Term AB IAB SAB Ectopic Multiple Livin g Live Births 3 3 Date Outcome GA Total Labor Labor/2nd/3rd Weight Sex Type Anes PTL Eli A1 A5 Name Clin Last Filed Vital Signs Vital Sign Reading Time Taken Comments Blood Pressure 140/65 03/18/2021 1:30 AM CDT Pulse 75 03/18/2021 1:30 AM CDT Temperature 37.1 C (98.7 F) 03/17/2021 6:10 PM CDT Respiratory Rate 20 03/17/2021 6:10 PM CDT Oxygen Saturation 95% 03/18/2021 1:30 AM CDT Inhaled Oxygen Concentration - - Weight 77.1 kg (170 lb) 03/17/2021 6:49 PM CDT Height 160 cm (5' 3) 03/17/2021 6:49 PM CDT Body Mass Index 30.11 03/17/2021 6:49 PM CDT Plan of Treatment Health Maintenance Due Date Last Done Comments Hepatitis C screening for age 18-79 1964 Zoster (shingles) series for age 50+ (2 of 3) 12/20/2014 10/25/2014 BMI (ht and wt on same day) for age 18+ 03/12/2017 03/12/2016 Depression screening for age 12+ 03/12/2017 03/12/2016 RSV vaccine for adults or (1 - 1-dose 75+ series) 2021 Tetanus booster 10/29/2022 10/29/2012, 11/22/2003 COVID-19 vaccine series ( season) 2024 01/09/2021, 12/19/2020 Influenza Vaccine (#1) 2025 5, 07/26/2014, 08/19/2013, Additional history exists Pneumococcal series for age 50+ Completed 03/23/2015, 03/17/2012, 11/13/2006 DEXA/DXA scan for age 65+ Completed 03/26/2016, Hepatitis B series for 19+ Aged Out N o longer eligible based on patient's age to complete this topic Procedures Procedure Name Priority Date/Time Associated Diagnosis Comments XR DXA BONE DENSITY 2 SITES AXIAL Routine 03/26/2016 8:43 AM CDT Menopause from Last 3 Months or Most Recently Relevant to Health Maintenance Results * (ABNORMAL) XR DXA BONE DENSITY 2 SITES AXIAL (03/26/2016 8:43 AM CDT) Anatomical Region Laterality Modality Spine, HIPS, HIPL, HIPR Other Narrative 04/01/2016 9:03 PM CDT Bone Density Interpretation Is the scan interpretable?Hip YES Forearm YES Indication for scan: SCREENING FOR OSTEOPOROSIS Prior Scan for comparison: 2010 AT [facility] Current medication for bone loss: NONE Skeletal sites scanned: LEFT FOREARM BILATERAL FEMORAL HIPS Patient identified risk factors: RACE, FAMILY HISTORY OF OSTEOPOROSIS, SMOKING RESULT LEFT FOREARM BMD 0.626 T Score: -2.9 Z Score -1.2 RESULT RIGHT FEMORAL NECK BMD 0.802 T Score: -1.7 Z Score 0.0 RESULT right TOTAL HIP BMD 0.810 T Score: -1.6 Z Score: -0.1 FRAX RISK CALCULATION (OSTEOPENIA ONLY) 10 YEAR TOTAL FRACTURE RISK 10.5% 10 YEAR HIP FRACTURE RISK 2.6% CONCLUSION: OSTEOPOROSIS RECOMMENDATIONS: The National Osteoporosis Foundation recommends pharmacolgoic treatment for post-menopausal women and men >50 with: 1) prior hip or vertebral fracture (Fragility Type); 2) T-score at spine or hip -2.5 or lower; or 3) Total fracture risk is 20% or greater or hip fracture risk is 3% or greater when applying FRAX. The FRAX score and other criteria above (including the Lumbar Spine Bone Density) should be used In conjunction with other clinical risk factors in making treatment decisions. TREATMENT RECOMMENDATION: CONSIDER BISPHOSPONATE THERAPY IF INDICATED WORKUP FOR SECONDARY CAUSE:(if not already done)For routine cases of osteoporosis consider the following laboratory evaluation if not already checked: Serum calcium: (to rule out hypocalcemia (in malabsorption/Vitamin D deficiency) or hypercalcemia (hyperparathyroidism); correct abnormalities prior to treatment) 25 hydroxy Vitamin D level (should be > 30 ng/ml) It is important to assure that Vitamin D level is optimal prior to therapy 24 hr urinary calcium excretion on a normal calcium intake. This is low in malabsorptive states (such as celiac disease) or in Vitamin D deficiency. Hypercalcuria can be caused by hyperparathyroidism, metastatic cancer or idiopathic hypercalcuria and can be evaluated and managed medically. Serum creatinine (if bisphosphonate therapy is being considered) --contraindicated if GFR is < 30) TSH: Do only if the patient is on thyroid replacement to rule out over-replacement (can cause bone loss) All patients should follow current guidelines for calcium and vitamin D intake. All patients should be considered for fall prevention Encourage regular exercise, smoking cessation and no more than moderate alcohol intake. Repeat bone density is recommended in 2 years. Mikhail Young MD MPH Prasanna Johnson MD DEXA Final Resul t from Last 3 Months or Most Recently Relevant to Health Maintenance Insurance MEDICARE PB ONLY MEDICARE PART B HB ONLY [facility] Care Teams Agricultural Specialist Relationship Specialty Start Date End Date [facility] PCP - General 01/09/17 Tiara Granados MD Neurology 08/25/15
--- OUTSIDE RECORDS SUMMARY | 2025-05-30 12:07 | XMS_ITS | Encounter Summary ---
Author Organization [place] Address [facility] [place] [address] Care Team Providers Care Clay Miner Name Role Phone Hilary Johnson MD Primary Care Provider [phone] Garcia Muñiz RN Unavailable Tiara Granados MD Unavailable [phone] Garcia Muñiz RN Unavailable Tiara Granados MD Unavailable [phone] Ham Mujica Primary Care Provider [phone] Hiral Mir MD Primary Care Provider [phone] Hiral Mir MD Unavailable [phone] Encounter Details Date Type Department Care Team (Late st Contact Info) Description 06/15/2013 Office Visit-[facility] [place] [address] [facility] [address] [place] [phone] Silvestre Alas MD [address] [facility] [address] [place] [address] Social History Tobacco Use Types Packs/Day Years Used Date Smoking Tobacco: Former Smokeless Tobacco: Never Alcohol Use Standard Drinks/Week Comments Yes 0 (1 standard drink = 0.6 oz pur e alcohol) Occasional Comments No Sex and Gender Information Value Date Recorded Sex Assigned at Not on file 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 - Hyperlipidemia, 272.4 2. - Hypertension, benign, 401.1 3. - CAD, 414.00 ALLERGIES Angio dye, Severe skin reacton Medals, Skin reaction morphine sulfate, Extr. low bp MEDICATIONS (prior to changes made today) 1. aspirin, buffered 81 mg tablet, 1 p.o. daily 2. Calcarb 600 With Vitamin D 600 mg(1,500mg) -400 unit tablet, 1 p.o. daily 3. fish oil-fat acid comb.[id number] 1,200 mg capsule, 1 p.o. daily 4. fluoxetine 40 mg capsule, 1 p.o. daily 5. hydrocodone-acetaminophen 5-500 mg capsule, Take as Directed 6. lisinopril 20 mg tablet, 1 p.o. daily 7. multivitamin tablet, 1 p.o. daily 8. simvastatin 40 mg tablet, 1 p.o. daily 9. Vitamin D3 2,000 unit capsule, 1 p.o. daily 10. Zetia 10 mg tablet, 1 p.o. daily CHIEF COMPLAINTS preop eval HISTORY OF PRESENT ILLNESS The patient is a pleasant 67-year-old well known to me from previous cardiovascular visits. She hasa history of coronary artery disease, status post PCI in 1994 of the RCA, and restenosis in 2002, and another intervention of a diagonal and circumflex in 2005. She has done well since that time. A nuclear stress test in August,, did not show any ischemia. She had preserved LV function. She has felt well since that time. She has undergone a 5.5 hour back surgery. She is due for knee surgery upcoming. I reviewed her ECG from 10/24/12 which does not show any ischemia. She can do two flights of stairs without stopping for chest discomfort or shortness of breath. She does get some knee pain. She has no presyncope or syncope. She feels well without any change in her exercise tolerance. PAST HISTORY Past Medical Illnesses: hyperlipidemia, hx of tobacco use, chronic knee pain, hypertension, anxiety, depression, panic attacks, degenerative joint disease, spinal stenosis Past Cardiac Illnesses: angina, coronary artery disease Infectious History: no previous history of significant infectious diseases. Trauma History: no previous history of significant trauma. Surgeries/Procedures - General: tonsilectomy, D, hysterectomy-subtotal Prior to 1979, left knee meniscectomy, tubal ligation Cardiac/Vasc Procedures-Invasive: cardiac cath (left) 1994, 2002, 2005 Cardiology Procedures-NonInvasive: stress echocardiogram February 2003, (at [facility]), myocardial perfusion imaging (Nuclear) September 2003, myocardial perfusion imaging (Nuclear) June 2006, myocardial perfusion (Nuc) -normal Aug 2012 Cardiac Cath Results: 1994: PTCA to RCA, 2002: stent to RCA, 2005 stent to D1 and Cx PMHx Stress Echo Results: positive for ischemia in RCA,normal LVS,LVF Left Ventricular Ejection Fraction: EF 67%, at rest , by nuclear study 06/2006 Nuclear Results: 08/29: Normal LV perfusion. No ischemia., 06/23: No ischemia. Transient wenckebach rhythm upon infusion. 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 EYES wears eye glasses/contact lenses EARS, NOSE, THROAT, MOUTH partial hearing loss RESPIRATORY denies dyspnea, snoring, cough, wheezing or hemoptysis. CARDIOVASCULAR negative for palpitations, chest pain, orthopnea, PND, peripheral edema, syncope or claudication. ABDOMINAL denies change in bowel habits, dyspepsia, ulcer disease, hematochezia or melena. GENITOURINARY-FEMALE post menopausal on hormonal replacement MUSCULOSKELETAL denies any history of arthritic symptoms or back problems. NEUROLOGICAL denies any history of recurrent headaches, strokes, TIA, or seizure disorder. PSYCHIATRIC denies any history of depression, substance abuse or change in cognitive functions. ENDOCRINE hyperlipidemia HEMATOLOGICAL/IMMUNOLOGIC denies any food allergies, seasonal allergies, bleeding disorders. PHYSICAL EXAMINATION VITAL SIGNS: Blood Pressure: 122/64Sitting, Left arm, large cuff Pulse- 72.00/min. Weight- 173.00 lbs. Height- 64 BMI Measurement: 29 CONSTITUTIONAL cooperative, alert and oriented,well developed, well [...] 1st and 2nd heart sounds, regular rhythm, no significant murmurs ABDOMEN benign PERIPHERAL PULSES pulses full and equal in all extremities EXTREMITIES & BACK no clubbing, cyanosis or edema NEUROLOGICAL no gross motor deficits noted, affect appropriate, oriented to time, person and place. MEDICATIONS UPDATED/STARTED TODAY: aspirin, buffered 81 mg tablet, 1 p.o. daily, #0 (Zero) MEDICATIONS REFILLED/STOPPED TODAY: gabapentin 600 mg tablet 1 p.o. three times daily #0 (Zero) Physician Order IMPRESSIONS/PLAN 1. Stable coronary artery disease. Would continue on her cardiovascular medications for her knee surgery. She may hold her aspirin if she is to have full anticoagulation afterwards for her knee. Havediscussed if she is going to have reduced dose prophylactic anticoagulation, could consider continuing her 81 mg aspirin. I have given her options of Coumadin versus novel anticoagulants such as Pradaxa or Xarelto. She will discuss this with her orthopedic surgeon. She is okay with Coumadin postoperatively. 2. She has had allergy to morphine product. It sounds like she had hypotension with that. I have discussed that they may hold her lisinopril if needing to give her morphine IV, especially with dual vasodilatory effects. She is tolerating Vicodin without difficulty. It was my pleasure to see this most pleasant patient. I would be happy to see her back p.r.n. or intwo years if symptoms are stable. I feel that she is moderate (not elevated) risk for a moderate risk surgery. She may proceed without any further cardiovascular testing given her ability to perform 4 METS activity. TODAYS ORDERS 1. Return Visit 2 year Silvestre Alas MD documented in this encounter Plan of Treatment Not on file documented as of this encounter Visit Diagnoses Not on filedocumented in this encounter Additional Health Concerns Infection Onset Date Last Indicated Resolved Time COVID-19 09/09/2020 09/09/2020 09/30/2020 11:4 0 PM VALVER Rule Out COVID-19 03/20/2021 03/20/2021 03/21/2021 6:32 PM CDT COVID-19 04/11/2021 04/11/2021 05/02/2021 11:3 9 PM CDT documented as of this encounter Care Teams Clay Miner Relationship Specialty Start Date End Date Hilary Johnson MD PCP - General Family Practice 07/11/12 08/10/20 Ham Mujica [address] [place] [id number] PCP - General Internal Medicine 02/13/21 07/03/21 [place] [address] [place] [address] PCP - General Family Medicine 07/04/21 Garcia Muñiz, RN Nurse Coordinator Neurological Surgery 04/23/14 7 Tiara Granados MD [address] [place] [address] Neurological Surgery 04/14/15 12/09/16 Garcia Muñiz, RN Specialty Rotary Peel Oven Tender Neurological Surgery 08/10/20 07/03/21 Tiara Granados MD [address] [address] Assigned Neuroscience Provider 09/09/20 01/04/23 [place] [address] [place] [address] Assigned PCP 06/08/21 08/09/24 documented as of this encounter
--- OUTSIDE RECORDS SUMMARY | 2025-05-30 12:07 | XMS_ITS | Encounter Summary ---
Author Organization [facility] Address [address] [place] [address]. [place] [address] Care Team Providers Care Launch Manager Name Role Phone Hilary Xiao MD Primary Care Provider [phone] Garcia Muñiz RN Unavailable Tiara Granados MD Unavailable [phone] Garcia Muñiz RN Unavailable Tiara Granados MD Unavailable [phone] Ham Mujica Primary Care Provider [phone] Hiral Mir MD Primary Care Provider [phone] Hiral Mir MD Unavailable [phone] Encounter Details Date Type Department Care Team (Late st Contact Info) Description 04/01/2003 Office Visit-[facility] [address] [place] [address] Unknown, DoctorMD Social History Tobacco Use Types Packs/Day Years Used Date Smoking Tobacco: Never Assessed Comments Unknown Sex and Gender Information Value Date Recorded Sex Assigned at Not on file 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 - Angina Pectoris, 413.9 2. - CAD, 414.00 3. - Chest Pain-unspecified, 786.50 4. - Hypertension, benign, 401.1 5. - Hyperlipidemia, 272.4 ALLERGIES Angio dye, Severe skin reacton Medals, Skin reaction MEDICATIONS 1. Zocor 20 mg, 2. Hydrochlorothiazide 12.5 mg, 1 p.o. q.d. 3. Imdur 30 mg, 1 p.o. q.d. 4. Xanax 2 mg, 25 mg prn 5. Glucosamine / chondroition 500 mg/ 400 mg, 1 p.o. b.i.d. 6. Calcium Citrate with Vitamin D 1500 mg-200 u, 1200 mg qd CHIEF COMPLAINTS Followup of Angina and Followup of Echo HISTORY OF PRESENT ILLNESS PAST HISTORY Past Medical Illnesses: hyperlipidemia, hx of tobacco use, chronic knee pain, hypertension, anxiety, depression Past Cardiac Illnesses: chest pain, coronary artery disease Cardiology Procedures-Invasive: PTCA 1994 Cardiology Procedures-Noninvasive: stress echocardiogram February 2003, (at [facility]) Left Ventricular Ejection Fraction: 60% PMHx Stress Echo Results: positive for ischemia in RCA,normal LVS,LVF Tao Ferrari M.D. Document electronically signed by : Tao Ferrari M.D. Date : 09/26/2004 Time : 3:21:09 PM Electronically signed by [facility], [facility] Data Conversion at 04/02/2014 1:58 AM CDT documented in this encounter Plan of Treatment Not on file documented as of this encounter Visit Diagnoses Not on filedocumented in this encounter Additional Health Concerns Infection Onset Date Last Indicated Resolved Time COVID-19 09/09/2020 09/09/2020 09/30/2020 11:4 0 PM GLOVE TAGGER Rule Out COVID-19 03/20/2021 03/20/2021 03/21/2021 6:32 PM CDT COVID-19 04/11/2021 04/11/2021 05/02/2021 11:3 9 PM CDT documented as of this encounter Care Teams Launch Manager Relationship Specialty Start Date End Date Hilary Xiao MD PCP - General Family Practice 07/11/12 08/10/20 Ham Mujica [address] [place] [address] PCP - General Internal Medicine 02/13/21 07/03/21 [place] [address] [address] [facility] [address] [place] [address] PCP - General Family Medicine 07/04/21 Garcia Muñiz, FABIÁN Nurse Coordinator Neurological Surgery 04/23/14 7 Tiara Granados MD [id number] [address] Neurological Surgery 04/14/15 12/09/16 Garcia Muñiz, RN Specialty Antenna Installer Neurological Surgery 08/10/20 07/03/21 Tiara Granados MD [address] [address] [address] Assigned Neuroscience Provider 09/09/20 01/04/23 [place] [address] [place] [address] Assigned PCP 06/08/21 08/09/24 documented as of this encounter
--- OUTSIDE RECORDS SUMMARY | 2025-05-30 12:07 | XMS_ITS | Encounter Summary ---
Author Organization [facility] Address [address] [place] [address]. [place] [address] Care Team Providers Care Laborer/Grade Check Name Role Phone Hilary Xiao MD Primary Care Provider [phone] Garcia Muñiz RN Unavailable Tiara Granados MD Unavailable [phone] Garcia Muñiz RN Unavailable Tiara Granados MD Unavailable [phone] Ham Mujica Primary Care Provider [phone] Hiral Mir MD Primary Care Provider + [phone] Hiral Mir MD Unavailable [phone] Encounter Details Date Type Department Care Team (Late st Contact Info) Description 09/19/2004 Office Visit-[facility] [address] [place] [address] Unknown, DoctorMD Social History Tobacco Use Types Packs/Day Years Used Date Smoking Tobacco: Never Assessed Comments Unknown Sex and Gender Information Value Date Recorded Sex Assigned at Not on file Legal Sex 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 DATE: 09/19/2004 XUAN LINARES DATE OF : 1945 AGE: [age] years old Referring Physician: HILARY XIAO Referring Clinic: [facility] CURRENT DIAGNOSES 1. - CAD, 414.00 2. - Hyperlipidemia, 272.4 3. - Hypertension, benign, 401.1 4. - Chest Pain-unspecified, 786.50 5. - Angina Pectoris, 413.9 ALLERGIES Angio dye, Severe skin reacton Medals, Skin reaction MEDICATIONS (including any changes made today) 1. Premarin 0.625 Mg, 1 p.o. q.d. 2. Xanax 2 Mg, PRN 3. Calcium Citrate with Vitamin D 1500 mg-200 u, 1200 mg qd 4. Aspir-Low 81 mg, 1 p.o. q.d. 5. Zocor 20 Mg, 1 p.o. qHS 6. Lisinopril 20 Mg, 1 p.o. q.d. CHIEF COMPLAINTS Followup of - Angina Pectoris HISTORY OF PRESENT ILLNESS I had the pleasure of seeing your patient, Xuan Linares, at [facility] on September 19, 2004. As you may recall, this patient is status post previous right coronary artery stenting in Mar, 2003, with a [id number] stent for high-grade stenosis of the right coronary artery. The patient had remote previous angioplasty, possibly of the same vessel, some years before that. The patient now presents for evaluation of right sternal sharp and dull chest discomfort over the last five daysthat may last five hours at a time. This may awaken her and lasts for several hours. It is not worse with exercise or in any particular position. There did not seem to be any effect with the use of Ty lenol. This is very dissimilar from her previous angina which was a substernal chest tightness, exertionally related. She denies shortness of breath. There is no radiation of the discomfort. She denies any gastroesophageal reflux symptoms. The patient's risk factors are continued intermittent smoking for which she quit one and one half weeks ago again. Apparently her lipid profile at your office has been under excellent control, although she has not had one recently. She has a hospital hypertension which has been well controlled on her lisinopril alone. Family history is benign. She is a female greater than 55 years old. The patient remains on Premarin at this time with her menopausal symptoms under excellent control. On physical exam, current blood pressure is 132/84, pulse is 60 and regular. Chest is clear. Cardiac exam: Regular rate and rhythm without gallop or murmur. No heave, rub, or thrill. No JVD or HJR. Pulses are all intact without bruits. Abdomen is mildly obese. Extremities are without cyanosis, clubbing, or edema. PAST HISTORY Past Medical Illnesses: hyperlipidemia, hx of tobacco use, chronic knee pain, hypertension, anxiety, depression, panic attacks Past Cardiac Illnesses: chest pain, coronary artery disease, angina Infectious Diseases: no previous history of significant infectious diseases. Surgical Procedures: tonsilectomy, D&C, hysterectomy-subtotal Prior to 1979, left knee meniscectomy, tubal ligation Trauma History: no previous history of significant trauma. 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 EYES wears eye glasses/contact lenses EARS, NOSE, THROAT, MOUTH partial hearing loss RESPIRATORY denies dyspnea, snoring, cough, wheezing or hemoptysis. CARDIOVASCULAR chest discomfort, sharp and dull, right sternal, lasts for up to 5 hours. ABDOMINAL denies change in bowel habits, dyspepsia, ulcer disease, hematochezia or melena. GENITOURINARY-FEMALE post menopausal on hormonal replacement MUSCULOSKELETAL denies any history of arthritic symptoms or back problems. NEUROLOGICAL negative for headaches PSYCHIATRIC stress, better ENDOCRINE polyuria HEMATOLOGICAL/IMMUNOLOGIC denies any food allergies, seasonal allergies, bleeding disorders. PHYSICAL EXAMINATION VITAL SIGNS: Blood Pressure: 132/84 Sitting, Right arm, large cuff Pulse- 60.00/min. Weight- 162.00 lbs. Height- 64.00 Temperature- .00 CONSTITUTIONAL cooperative, [...] bruit, thyroid not enlarged CHEST clear to auscultation CARDIAC no murmurs, gallops or rubs detected ABDOMEN non-tender, no masses, no bruits, aorta, liver and spleen not palpated, bowel sounds normal PERIPHERAL PULSES pulses full and equal in all extremities EXTREMITIES & BACK no clubbing, cyanosis or edema NEUROLOGICAL no gross motor deficits noted, affect appropriate, oriented to time, person and place. MEDICATIONS UPDATED TODAY: Premarin 0.625 mg, one qd, 0 Premarin 0.625 Mg, 1 p.o. q.d., 0 Xanax 2 Mg, PRN, DIRECTED IMPRESSIONS/PLAN 1. This patient has known coronary artery disease with previous right coronary artery stenting in 2002. Her current symptoms are unlike her previous angina. I believe this is likely musculoskeletal pain, although she is not particularly tender to palpation at this time. I do not believe that a follow up stress test is imperative at this time. Certainly should she develop symptoms that are more referable to angina such as exertional chest tightness, a nuclear stress test would seem reasonable. 2. Her hypertension is currently well controlled on the above mentioned medications. 3. I gave this patient a list of her preferred lipid parameters which she will use as a basis to decide how she is doing on her next lipid profile in your office. 4. I did spend at least half of our 40 minute appointment discussing her risk factors, including the pathophysiology of atherosclerosis, as well as the effects of smoking and exercise on the endothelial wall. The patient seems a bit more motivated to control all her risk factors. I suggested that she begin an exercise program of 30 minutes of walking three to four times per week. She is building a home in [place], [place], and will use this as a venue for walking as well. Thank you very much for allowing me to help care for this delightful patient. This patient will plan on returning to see Dr. Tao Ferrari in six months, or earlier on a p.r.n. basis. We will leave open the option for a nuclear stress test in that time frame should she be having any symptoms. Shouldyou have any questions regarding her care, please feel free to contact me at any time in the future. TODAYS ORDERS 1. F/U with Tao Ferrari MD 6 months F/U Hilary Anne M.D. Electronically signed by [facility], [employer] Data Conversion at 04/02/2014 1:58 AM CDT documented in this encounter Plan of Treatment Not on file documented as of this encounter Visit Diagnoses Not on filedocumented in this encounter Additional Health Concerns Infection Onset Date Last Indicated Resolved Time COVID-19 09/09/2020 09/09/2020 09/30/2020 11:4 0 PM LASTEX THREAD WINDER Rule Out COVID-19 03/20/2021 03/20/2021 03/21/2021 6:32 PM CDT COVID-19 04/11/2021 04/11/2021 05/02/2021 11:3 9 PM CDT documented as of this encounter Care Teams Laborer/Grade Check Relationship Specialty Start Date End Date Hilary Xiao MD PCP - General Family Practice 07/11/12 08/10/20 Ham Mujica [address] [place] [address] PCP - General Internal Medicine 02/13/21 07/03/21 [place] [address] [place] [address] PCP - General Family Medicine 07/04/21 Garcia Muñiz RN Nurse Coordinator Neurological Surgery 04/23/14 7 Tiara Granados MD [address] [id number] [place] [address] Neurological Surgery 04/14/15 12/09/16 Garcia Muñiz, RN Specialty Plug Maker Neurological Surgery 08/10/20 07/03/21 Tiara Granados MD [address] [place] [address] Assigned Neuroscience Provider 09/09/20 01/04/23 [place] [address] [place] [id number] Assigned PCP 06/08/21 08/09/24 documented as of this encounter
--- OUTSIDE RECORDS SUMMARY | 2025-05-30 12:07 | XMS_ITS | Encounter Summary ---
Author Organization [facility] Address [address] [place] [address]. [place] [address] Care Team Providers Care Citrix Consultant Name Role Phone Hilary Xiao MD Primary Care Provider [phone] Garcia Muñiz RN Unavailable Tiara Granados MD Unavailable [phone] Garcia Muñiz RN Unavailable Tiara Granados MD Unavailable [phone] Ham Mujica Primary Care Provider [phone] Hiral Mir MD Primary Care Provider [phone] Hiral Mir MD Unavailable [phone] Encounter Details Date Type Department Care Team (Late st Contact Info) Description 04/15/2003 Office Visit-[facility] [address] [place] [address] Unknown, DoctorMD Social History Tobacco Use Types Packs/Day Years Used Date Smoking Tobacco: Never Assessed Comments Unknown Sex and Gender Information Value Date Recorded Sex Assigned at Not on file 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 - CAD, 414.00 2. - Angina Pectoris, 413.9 3. - Chest Pain-unspecified, 786.50 4. - Hypertension, benign, 401.1 5. - Hyperlipidemia, 272.4 ALLERGIES Angio dye, Severe skin reacton Medals, Skin reaction MEDICATIONS 1. Hydrochlorothiazide 12.5 mg, 1 p.o. q.d. 2. Imdur 30 mg, 1 p.o. q.d. 3. Xanax 2 mg, 25 mg prn 4. Glucosamine / chondroition 500 mg/ 400 mg, 1 p.o. b.i.d. 5. Calcium Citrate with Vitamin D 1500 mg-200 u, 1200 mg qd 6. Imipramine Hydrochloride 25 mg, 1 p.o. b.i.d. 7. Nifedipine 60 mg, 1 p.o. b.i.d. 8. Zocor 20 Mg, 1 p.o. qHS 9. Lisinopril 20 mg, 1 p.o. q.d. CHIEF COMPLAINTS Followup of - Hypertension, benign HISTORY OF PRESENT ILLNESS I saw Xuan in clinic today. As you know, she is the 57-year-old woman with a past medical historysignificant for angioplasty of her right coronary artery in 1994 with subsequent restenosis with a repeat procedure. She has done quite well since that time. More recently she has developed anginal type symptoms when golfing. A stress echo done through [facility] was positive at 5 minutes for inferior ischemia. She was seen by Dr. Jose Ferrari who set her up for a coronary angiogram. At the time it was noted that she was on nifedipine 60 mg b.i.d. and that there were probably better choices of medications for cardioprotective benefits. [facility] performed a successful angioplasty and stenting of her right coronary artery. Paramjit has a severe dye reaction for which she was given limited prednisone. When the prednisone wore off, she again had a recrudescence of her urticaria which required a more prolonged courseof steroids. She finished her steroid taper yesterday and is now coming for follow up. Ms. Linares states she is doing quite well from a cardiac standpoint. She has had no chest, arm, neck, jaw or shoulder discomfort. No dyspnea on exertion, orthopnea or PND. No palpitations, lightheadedness, dizziness, syncope or near syncope. On a previous exposure to contrast, she actually sloughed her skin from such a severe contrast reaction. This time she had a prolonged contrast reaction requiring almost a week of steroids post procedure but all of her skin reaction has completely resolved. Post procedure she developed hypotension with her hives which responded well to steroid, Benadryl and a fluid infusion. PAST HISTORY Past Medical Illnesses: hyperlipidemia, hx of tobacco use, chronic knee pain, hypertension, anxiety, depression Past Cardiac Illnesses: chest pain, coronary artery disease Cardiology Procedures-Invasive: PTCA 1994 Cardiology Procedures-Noninvasive: stress echocardiogram February 2003, (at [facility]) Left Ventricular Ejection Fraction: 60% PMHx Stress Echo Results: positive for ischemia in RCA,normal LVS,LVF FAMILY HISTORY: Father - Age 75, CHF; Mother - emphysema at 72 and hypertension; Brother 1 - hypertension; CARDIAC RISK FACTORS SOCIAL HISTORY Alcohol Use - occasionaly and beer; Smoking - used to smoke but quit; Diet - low sodium (less than 2 grams); Exercise - some exercise; 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 INTEGUMENTARY denies any change in hair or nails, rashes, or skin lesions. EYES denies diplopia, history of glaucoma or visual field defects. EARS, NOSE, THROAT, MOUTH partial hearing loss RESPIRATORY denies dyspnea, snoring, cough, wheezing or hemoptysis. CARDIOVASCULAR negative for palpitations, chest pain, orthopnea, PND, peripheral edema, syncope or claudication. ABDOMINAL ED MUSCULOSKELETAL denies any history of arthritic symptoms or back problems. NEUROLOGICAL denies any history of recurrent strokes, TIA, or seizure disorder. PSYCHIATRIC depression ENDOCRINE polyuria HEMATOLOGICAL/IMMUNOLOGIC denies any food allergies, seasonal allergies, bleeding disorders. PHYSICAL EXAMINATION VITAL SIGNS: Blood Pressure: 106/72 Sitting, Right arm, large cuff Pulse- 80.00/min. Weight- 166.00 lbs. Height- .00 Temperature- .00 CONSTITUTIONAL cooperative, alert and oriented,well developed, well nourished, in no acute distress. SKIN warm and dry to touch, no apparent skin lesions, or masses noted. HEAD normocephalic, atraumatic EYES Pupils equal and round, conjunctivae and lids unremarkable, sclera white, no xanthalasma ENT no pallor or cyanosis, dentition good NECK carotid pulses are full and equal bilaterally, JVP normal, no carotid bruit, no thyromegaly CHEST clear to auscultation CARDIAC no murmurs, gallops or rubs detected ABDOMEN abdomen soft, bowel sounds normoactive, no masses, no hepatosplenomegaly, non- tender, no bruits PERIPHERAL PULSES pulses full and equal in all extremities, no bruits auscultated. EXTREMITIES & BACK no clubbing, cyanosis or edema NEUROLOGICAL no gross motor deficits noted, affect appropriate, oriented to time, person and place. MEDICATIONS UPDATED TODAY: Procardia XL 60 mg, 1 p.o. b.i.d., DIRECTED Imipramine Hydrochloride 25 mg, 1 p.o. b.i.d., DIRECTED Nifedipine 60 mg, 1 p.o. b.i.d., 0 Zocor 20 Mg, 1 p.o. qHS, DIRECTED Lisinopril 20 mg, 1 p.o. q.d., #30 MEDICATION STOPPED TODAY: Prednisone 20 mg IMPRESSIONS/PLAN 1. Xuan appears to be doing quite well from a cardiac standpoint without evidence of angina. Hopefully she will not develop any restenosis. I have asked her to watch for this, explaining that it ismost likely to occur three to six months from now and if she does get recrudescence of symptoms, togive us a call. Otherwise we should probably some form of stress testing in six months. 2. Fasting lipid profile was outstanding done earlier this year and I will not change her medical regimen. I will have a fasting lipid profile checked again when she sees Dr. Ferrari in six months. 3. In reviewing her medical regimen, I will change her nifedipine 60 mg b.i.d. to lisinopril 20 mg a day for the cardioprotective benefits of SANJEEV inhibitors. 4. She is still on Imdur 30 mg. This can probably be discontinued as she appears to be completely revascularized. I will keep the remainder of her medical regimen as is. 5. I have encouraged her to get back to a regular exercise regimen and she states she already has and plans on continuing. 6. Her weight is high at 166 pounds and she clearly needs to lose weight. TODAYS ORDERS 1. F/U with Tao Ferrari MD 2. Treadmill Nuclear Study 6 months 3. Lipid profile/ALT 6 months Ever Norris M.D. Document electronically signed by : Ever Norris M.D. 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 Rule Out COVID-19 03/20/2021 03/20/2021 03/21/2021 6:32 PM CDT COVID-19 04/11/2021 04/11/2021 05/02/2021 11:3 9 PM CDT documented as of this encounter Care Teams Citrix Consultant Relationship Specialty Start Date End Date Hilary Xiao MD PCP - General Family Practice 07/11/12 08/10/20 Ham Mujica [address] [place] [address] PCP - General Internal Medicine 02/13/21 07/03/21 [place] [address] [facility] [address] [place], [place] [address] PCP - General Family Medicine 07/04/21 Garcia Muñiz RN Nurse Coordinator Neurological Surgery 04/23/14 7 Tiara Granados MD [address] [place] [address] [id number] [place], [place] [address] Neurological Surgery 04/14/15 12/09/16 Garcia Muñiz, FABIÁN Specialty Vp Clinical Research Neurological Surgery 08/10/20 07/03/21 Tiara Granados MD [address] [facility] [id number] [place] [address] Assigned Neuroscience Provider 09/09/20 01/04/23 [place] [address] [place] [address] Assigned PCP 06/08/21 08/09/24 documented as of this encounter
--- OUTSIDE RECORDS SUMMARY | 2025-05-30 12:07 | XMS_ITS | Encounter Summary ---
Author Organization [place] Address [facility] [place] [address] Care Team Providers Care Ship Pilot Dispatcher Name Role Phone Hilary Johnson MD Primary Care Provider Garcia Muñiz RN Unavailable Tiara Granados MD Unavailable [phone] Garcia Muñiz RN Unavailable Tiara Granados MD Unavailable [phone] Ham Mujica Primary Care Provider [phone] Hiral Mir MD Primary Care Provider + [phone] Hiral Mir MD Unavailable [phone] Encounter Details Date Type Department Care Team (Late st Contact Info) Description 08/18/2012 Office Visit-[facility] [place] [address] [facility] [address] [place] [address] Silvestre Alas MD [address] [facility] [address] [place] [address] Social History Tobacco Use Types Packs/Day Years Used Date Smoking Tobacco: Former Smokeless Tobacco: Never Alcohol Use Standard Drinks/Week Comments Not Asked 0 (1 standard drink = 0.6 oz pur e alcohol) Comments Unknown Sex and Gender Information Value Date Recorded Sex Assigned at Not on file 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 - Hyperlipidemia, 272.4 2. - Hypertension, benign, 401.1 3. - CAD, 414.00 ALLERGIES Angio dye, Severe skin reacton Metals, Skin reaction MEDICATIONS (prior to changes made today) 1. Calcarb 600 With Vitamin D 600 mg(1,500mg) -400 unit tablet, 1 p.o. daily 2. fish oil-fat acid comb.8-hb137 1,200 mg capsule, 1 p.o. daily 3. fluoxetine 40 mg capsule, 1 p.o. daily 4. gabapentin 600 mg tablet, 1 p.o. three times daily 5. hydrocodone-acetaminophen 5-500 mg capsule, Take as Directed 6. lisinopril 20 mg tablet, 1 p.o. daily 7. multivitamin tablet, 1 p.o. daily 8. simvastatin 40 mg tablet, 1 p.o. daily 9. Vitamin D3 2,000 unit capsule, 1 p.o. daily 10. Zetia 10 mg tablet, 1 p.o. daily CHIEF COMPLAINTS preop eval HISTORY OF PRESENT ILLNESS Xuan Linares is a very pleasant 66-year-old who was a previous patient of the [facility]. She has a history of coronary artery disease status post PCI. She had PCI in 1994 with intervention to the right coronary artery and then reintervention for restenosis. Lailatherosanne was found to have additional RCA disease in 2002. She again had intervention in 2005 of a diagonal and circumflex. This was done for an abnormal stress test. 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 The first time when she was not pretreated, she had a severe Bartlett-John reaction with skin sloughing and blistering. She had a mild reaction even with prednisone prep for her angiogram in 2005. She did not have angina prior to her previous intervention in 2005. She did have some chest discomfort in 1994. She states that she has not had any exertional chest discomfort, but cannot walk up two flights of stairs or two blocks due to her severe back pain. She is currently being evaluated for lumbar fusion. She is currently getting physical therapy. She denies any exertional chest discomfort or shortnessof breath. However, she is limited in her functional capacity. She does take daily aspirin 81 mg aswell as simvastatin 40 mg and Zetia 10 mg. She is followed by her primary doctor for her hypercholesterolemia. She had an LDL above 100 in 2010. She thinks that her LDL may have improved this year. We do not have her most current lipids on file today. Currently, she has no palpitations, presyncope, or syncope. No PND or orthopnea. PAST HISTORY Past Medical Illnesses: hyperlipidemia, hx [...] Cardiology Procedures-NonInvasive: stress echocardiogram February 2003, (at [facility]), myocardial perfusion imaging (Nuclear) September 2003, myocardial perfusion imaging (Nuclear) June 2006 Cardiac Cath Results: 1994: PTCA to RCA, 2002: stent to RCA, 2005 stent to D1 and Cx PMHx Stress Echo Results: positive for ischemia in RCA,normal LVS,LVF Left Ventricular Ejection Fraction: EF 67%, at rest , by nuclear study 06/2006 EF 67%, at rest , by nuclear study 06/2006 FAMILY HISTORY: Father - Age 75, CHF; Mother - emphysema at 72 and hypertension; Brother 1 - hypertension; SOCIAL HISTORY Alcohol Use - 1 per week; Smoking - used to smoke but quit and started then stopped again this wk; Diet - caffeine use-1-2 per day, decaff pop/coffee and regular diet without modifications; Lifestyle- ; Exercise - golf; Seat Belt Use - always; 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 PHYSICAL EXAMINATION VITAL SIGNS: Blood Pressure: 100/60Sitting, Left arm, regular cuff Pulse- 74.00/min. Weight- 160.00 lbs. Height- 64 BMI Measurement: 27 CONSTITUTIONAL cooperative, alert and oriented,well developed, well [...] time, person and place. MEDICATIONS UPDATED/STARTED TODAY: Calcarb 600 With Vitamin D 600 mg(1,500mg) -400 unit tablet, 1 p.o. daily, #0 (Zero) fish oil-fat acid comb.8-hb137 1,200 mg capsule, 1 p.o. daily, #0 (Zero) fluoxetine 40 mg capsule, 1 p.o. daily, #0 (Zero) gabapentin 600 mg tablet, 1 p.o. three times daily, #0 (Zero) hydrocodone-acetaminophen 5-500 mg capsule, Take as Directed, #0 (Zero) lisinopril 20 mg tablet, 1 p.o. daily, #0 (Zero) multivitamin tablet, 1 p.o. daily, #0 (Zero) simvastatin 40 mg tablet, 1 p.o. daily, #0 (Zero) Vitamin D3 2,000 unit capsule, 1 p.o. daily, #0 (Zero) Zetia 10 mg tablet, 1 p.o. daily, #0 (Zero) MEDICATIONS REFILLED/STOPPED TODAY: Aspirin 325 mg Tablet 1 p.o. q.d. DIRECTED Physician Order, Calcium Citrate with Vitamin D 1500 mg-200 u 1200 mg qd DIRECTED Physician Order, Fluoxetine 10 mg Capsule 40 mg qd DIRECTED Physician Order, Lisinopril 20 mg Tablet 1 p.o. q.d. #30 Physician Order, Plavix 75 mg Tablet 1 p.o. q.d.#90 Physician Order, simvastatin 20 mg tablet Dose/instruction UNKNOWN #0 (Zero) Medication Change,Xanax 2 mg Tablet PRN DIRECTED Physician Order, Zetia 10 mg Tablet 1 p.o. q.d. DIRECTED Physician Order and Zocor 40 mg Tablet 1 p.o. qHS 0 Physician Order IMPRESSIONS/PLAN 1. Preoperative evaluation. I have recommended a nuclear stress test given her previous history of coronary artery disease status post PCI. In reviewing the cardiac catheterization notes, she has haddiffuse disease. I would expect some element of abnormality on her nuclear stress testing. However,I would be specifically looking for progression of LAD disease. If there is no significant anteriorischemia, I would medically manage her for upcoming back surgery. If there is a large territory of ischemia anteriorly, I would consider revascularization prior to back surgery. This could be executed with a bare metal stent if needed. We will review the results of the stress testing after it has been completed. 2. Nicotine abuse. I have urged her to stay abstinent as she has severe disease at a young age. She acknowledges the contribution that smoking may have on her overall cardiovascular status. I would be happy to see this most pleasant patient back for follow up in approximately one year. I would consider the patient to be a moderate (not elevated) risk for a moderate risk procedure if there is no gross large territory of anterior ischemia on stress testing. TODAYS ORDERS 1. Lexiscan Infusion MD Janet able to convert to treadmill stress if pt able to exercise Silvestre Alas MD documented in this encounter Plan of Treatment Not on file documented as of this encounter Visit Diagnoses Not on filedocumented in this encounter Additional Health Concerns Infection Onset Date Last Indicated Resolved Time COVID-19 09/09/2020 09/09/202009/30/2020 11:4 0 PM VIOLIN REPAIRER Rule Out COVID-19 03/20/2021 03/20/2021 03/21/2021 6:32 PM CDT COVID-19 04/11/2021 04/11/2021 05/02/2021 11:3 9 PM CDT documented as of this encounter Care Teams Ship Pilot Dispatcher Relationship Specialty Start Date End Date Hilary Johnson MD PCP - General Family Practice 07/11/12 08/10/20 Sil Ham Delgado [address] [place] [address] PCP - General Internal Medicine 02/13/21 07/03/21 [place] [address] [facility] [facility] [address] [place], [place] [address] PCP - General Family Medicine 07/04/21 Garcia Muñiz, RN Nurse Coordinator Neurological Surgery 04/23/14 7 Tiara Granados MD [address] [place] [id number] Neurological Surgery 04/14/15 12/09/16 Garcia Muñiz, RN Specialty Stack Attendant Neurological Surgery 08/10/20 07/03/21 Tiara Granados MD [address] [place] [address] Assigned Neuroscience Provider 09/09/20 01/04/23 [place] [address] [place] [address] Assigned PCP 06/08/21 08/09/24 documented as of this encounter
--- OUTSIDE RECORDS SUMMARY | 2025-05-30 12:07 | XMS_ITS | Encounter Summary ---
Author Organization [place] Address [address] [place] [address]. [place] [address] Care Team Providers Care Usability Architect Name Role Phone Garcia Muñiz RN Unavailable Tiara Granados MD Unavailable [phone] Ham Mujica Primary Care Provider [phone] Hiral Mir MD Primary Care Provider [phone] Hiral Mir MD Unavailable [phone] Encounter Details Date Type Department Care Team (Late st Contact Info) Description 12/14/2020 MyC Medical Advice [facility] [address] [place] [address] Garcia Muñiz RN Social History Tobacco Use Types Packs/Day Years Used Date Smoking Tobacco: Former Cigarettes 0.5 48 S tarted: 03/07/2014 Smokeless Tobacco: Never Alcohol Use Standard Drinks/Week Comments Yes 0 (1 standard drink = 0.6 oz pur e alcohol) 1 drink every 2 weeks Comments No Sex and Gender Information Value Date Recorded Sex Assigned at Not on file 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 Gender Identity Not on file Sexual Orientation [...] documented as of this encounter Care Teams Usability Architect Relationship Specialty Start Date End Date Ham Mujica [address] [place] [facility] [place] [address] PCP - General Internal Medicine 02/13/21 07/03/21 [place] [address] [place] [address] PCP - General Family Medicine 07/04/21 Garcia Muñiz, FABIÁN Specialty Prorate Clerk Neurological Surgery 08/10/20 07/03/21 Tiara Granados MD [address] [facility] [place] [address] Assigned Neuroscience Provider 09/09/20 01/04/23 [place] [address] [place] [address] Assigned PCP 06/08/21 08/09/24 documented as of this encounter
--- OUTSIDE RECORDS SUMMARY | 2025-05-30 12:07 | XMS_ITS | Encounter Summary ---
Author Organization [place] Address [facility] [place] [address] Care Team Providers Care School Community Relations Coordinator Name Role Phone Hilary Johnson MD Primary Care Provider Garcia Muñiz RN Unavailable Tiara Granados MD Unavailable [phone] Garcia Muñiz RN Unavailable Tiara Granados MD Unavailable [phone] Ham Mujica Primary Care Provider [phone] Hiral Mir MD Primary Care Provider [phone] Hiral Mir MD Unavailable [phone] Encounter Details Date Type Department Care Team (Late st Contact Info) Description 12/26/2006 Office Visit-[facility] [place] [address] [facility] [address] [place] [address] Ip, Harpreet Soni MD [address] [facility] [address] [place] [address] Social History Tobacco Use Types Packs/Day Years Used Date Smoking Tobacco: Never Assessed Comments Unknown Sex and Gender Information Value Date Recorded Sex Assigned at Not on file 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 DATE: 12/26/2006 XUAN LINARES DATE OF : 1945 AGE: [age] years old Referring Physician: HILARY JOHNSON Referring Clinic: [facility] CURRENT DIAGNOSES 1. - CAD, 414.00 2. - Hyperlipidemia, 272.4 3. - Hypertension, benign, 401.1 ALLERGIES Angio dye, Severe skin reacton Medals, Skin reaction MEDICATIONS (including any changes made today) 1. Xanax 2 Mg, PRN 2. Plavix 75 mg, 1 p.o. q.d. 3. Aspirin 325 mg, 1 p.o. q.d. 4. Zetia 10 mg, 1 p.o. q.d. 5. Fluoxetine 10 mg, 40 mg qd 6. Calcium Citrate with Vitamin D 1500 mg-200 u, 1200 mg qd 7. Lisinopril 20 Mg, 1 p.o. q.d. 8. Zocor 40 mg, 1 p.o. qHS CHIEF COMPLAINTS Followup of - CAD HISTORY OF PRESENT ILLNESS It is a pleasure for me to follow-up with Mrs. Linares for her coronary artery disease. I saw her back in the summer of last year prior to her having surgery. She does have a history of multiple stent placements as detailed below. Her stress nuclear study was fine. Her Plavix was stopped and subsequently she had knee replacement which went very smoothly. She is doing fine right now. She tells me that she has not felt this good for a long time. As she certainly has no chest pain or shortness of breath to complain of though she has been fairly sedentary. Her lipid level is expertly managed by Dr.Robert Johnson. On physical examination, the cardiovascular system is unremarkable. PAST HISTORY Past Medical Illnesses: hyperlipidemia, hx [...] Cardiology Procedures-Noninvasive: stress echocardiogram February 2003, (at [facility]), myocardial perfusion imaging (Nuclear) September 2003, myocardial perfusion imaging (Nuclear) June 2006 Left Ventricular Ejection Fraction: 78, EF 67%, at rest , by nuclear study 06/2006 PMHx Stress Echo Results: positive for ischemia [...] lives with male partner; Place of - [place]; Hours Worked - 20 hours per week [...] disorders. PHYSICAL EXAMINATION VITAL SIGNS: Blood Pressure: 130/72 Sitting, Left arm, regular cuff Pulse- 76.00/min. Weight- 171.00 lbs. Height- 64.00 Temperature- .00 CONSTITUTIONAL cooperative, [...] time, person and place. MEDICATIONS UPDATED TODAY: Plavix 75 mg, 1 p.o. q.d., #90 MEDICATION STOPPED TODAY: Plavix 75 mg IMPRESSIONS/PLAN I think this lady is doing well from our point of view. There is no evidence of ongoing ischemia though with a history of multiple stents and the fact that she has stopped Plavix for a little while, we should closely follow her. I have advised her to restart Plavix again given the situation regarding the risk of stent thrombosis even though this risk is very low. She is agreeable to this plan. I have asked her to cut her aspirin down from 325mg to 81mg daily. I will see her again in six months time. TODAYS ORDERS 1. Return Visit 6 months Harpreet Brizuela M.D. 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 Out COVID-19 03/20/2021 03/20/2021 03/21/2021 6:32 PM CDT COVID-19 04/11/2021 04/11/2021 05/02/2021 11:3 9 PM CDT documented as of this encounter Care Teams School Community Relations Coordinator Relationship Specialty Start Date End Date Hilary Johnson MD PCP - General Family Practice 07/11/12 08/10/20 Ham Mujica [address] [place] [id number] PCP - General Internal Medicine 02/13/21 07/03/21 [place] [address] [place] [address] PCP - General Family Medicine 07/04/21 Garcia Muñiz, RN Nurse Coordinator Neurological Surgery 04/23/14 7 Tiara Granados MD [address] [address] Neurological Surgery 04/14/15 12/09/16 Garica Muñiz RN Specialty [place]t [place]yer Neurological Surgery 08/10/20 07/03/21 Tiara Granados MD [address] [address] Assigned Neuroscience Provider 09/09/20 01/04/23 [place] [address] [place] [address] Assigned PCP 06/08/21 08/09/24 documented as of this encounter
--- OUTSIDE RECORDS SUMMARY | 2025-05-30 12:07 | XMS_ITS | Encounter Summary ---
Author Organization [place] Address [address] [place] [address]. [place] [address] Care Team Providers Care Public Health Registrar Name Role Phone Hilary Xiao MD Primary Care Provider [phone] Garcia Muñiz RN Unavailable Tiara Granados MD Unavailable [phone] Garcia Muñiz RN Unavailable Tiara Granados MD Unavailable [phone] Ham Mujica Primary Care Provider [phone] Hiral Mir MD Primary Care Provider [phone] Hiral Mir MD Unavailable [phone] Encounter Details Date Type Department Care Team (Late st Contact Info) Description 04/01/2003 Office Visit-[facility] [address] [place] [address] Unknown, DoctorMD Social History Tobacco Use Types Packs/Day Years Used Date Smoking Tobacco: Never Assessed Comments Unknown Sex and Gender Information Value Date Recorded Sex Assigned at Not on file 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 She has a history of having had severe stress related pains in 1994 that ultimately led to an angiogram and angioplasty of her right coronary artery. Details of other coronary anatomy were not done. She had marked resolution of these chest pains but still had some mild residual discomforts and, therefore, had another angiogram done a month later that showed partial restenosis. She remembers having had a stress test done around that time also, details unknown. She remained freeof any chest pains until this past winter when in [place] when she was walking along the golf course, she might have a little bit of tightness in her chest. When she got up to the greens, the pains would tend to subside. It was for this reason that she underwent a stress echo at [facility] where she went 5 minutes on a Malcom protocol and had no chest pain, marked dyspnea but what was read as clear evidence for ischemia involving the right coronary distribution. She was put on Imdur with no real changein her symptoms. Other medications have included a generic nifedipine 120 mg per day, Imdur 30 mg a day, Zocor 20 mga day, aspirin, hydrochlorothiazide 12.5 mg per day, Xanax, glucosamine and vitamins. She has neverhad any bleeding problems on 325 mg of aspirin. She has never had clinical heart failure. She denies any arrhythmic sensations, claudication or dizziness. She stopped smoking as of November and has been an on and off smoker since her last intervention. Her lipid status is excellent on just 20 mg of Zocor. She has never been on an SANJEEV inhibitor inthe past. She has had hypertension for at least 10 to 15 years. PAST HISTORY Past Medical Illnesses: hyperlipidemia, hx of tobacco use, chronic knee pain, hypertension, anxiety, depression Past Cardiac Illnesses: chest pain, coronary artery disease Cardiology Procedures-Invasive: PTCA 1994 Cardiology Procedures-Noninvasive: stress echocardiogram February 2003, (at [facility]) Left Ventricular Ejection Fraction: 60% [...] NOSE, THROAT, MOUTH partial hearing loss RESPIRATORY dyspnea with exertion CARDIOVASCULAR chest discomfort, edema ABDOMINAL ED MUSCULOSKELETAL pain neck back NEUROLOGICAL denies any history of recurrent strokes, TIA, or seizure disorder. PSYCHIATRIC depression ENDOCRINE polyuria HEMATOLOGICAL/IMMUNOLOGIC denies any food allergies, seasonal allergies, bleeding disorders. PHYSICAL EXAMINATION VITAL SIGNS: Blood Pressure: 130/80 Sitting, Right arm, regular cuff Pulse- 72.00/min. Weight- 167.00 lbs. Height- 64.00 Temperature- .00 CONSTITUTIONAL cooperative, [...] time, person and place. MEDICATIONS UPDATED TODAY: Zocor 20 mg, , DIRECTED Hydrochlorothiazide 12.5 mg, 1 p.o. q.d., DIRECTED Imdur 30 mg, 1 p.o. q.d., DIRECTED Xanax 2 mg, 25 mg prn, DIRECTED Glucosamine / chondroition 500 mg/ 400 mg, 1 p.o. b.i.d., DIRECTED Calcium Citrate with Vitamin D 1500 mg-200 u, 1200 mg qd, DIRECTED IMPRESSIONS/PLAN 1. Chest pains which have some features that would suggest exertional angina with a recent abnormalstress echo consistent with the same. 2. Known coronary disease having had angioplasty eight years ago. 3. Well controlled hyperlipidemia. 4. Hypertension. RECOMMENDATION: 1. She was anxious to proceed with coronary angiography at the earliest time. We have talked about newer technologies including stents and drug-eluting stents as being more favorable than plain angioplasty of years past. 2. She does have a contrast allergy but she had no problems with taking prednisone with her previous angiogram. I should add that she sloughed her entire skin layer with her first angiogram thought to be a dye reaction. 3. As far as her lipid status is concerned, her HDL levelsare certainly excellent and LDL levels are adequate. However if she does have substantial progression of disease, one could make a case for saying that her LDL levels could be even further depressed down below 70. 4. Based on the HOPE Study, she should probably be on Altace rather than a calcium channel amisha such as nifedipine for better cardiovascular protective effects over the long-term. Joe also discussed that. 5. Because her angiogram is upcoming soon, I have not made any changes toAltace at this time but after the angiogram is done, she knows that we will make a change. 6. We have also talked about the procedural risks and benefits including the possibility of bypass surgery, all of which she is very familiar with. TODAYS ORDERS 1. Left Heart Cath 1 week Tao Ferrari M.D. Document electronically signed by : Tao Ferrari M.D. 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 Rule Out COVID-19 03/20/2021 03/20/2021 03/21/2021 6:32 PM CDT COVID-19 04/11/2021 04/11/2021 05/02/2021 11:3 9 PM CDT documented as of this encounter Care Teams Public Health Registrar Relationship Specialty Start Date End Date Hilary Xiao MD PCP - General Family Practice 07/11/12 08/10/20 Ham Mujica [address] [place] [address] PCP - General Internal Medicine 02/13/21 07/03/21 [place] [address] [place] [id number] PCP - General Family Medicine 07/04/21 Garcia Muñiz RN Nurse Coordinator Neurological Surgery 04/23/14 7 Tiara Granados MD [address] [place] [id number] Neurological Surgery 04/14/15 12/09/16 Garcia Muñiz, FABIÁN Specialty Child Care Assistant Neurological Surgery 08/10/20 07/03/21 Tiara Granados MD [address] [place] [address] Assigned Neuroscience Provider 09/09/20 01/04/23 [place] [address] [place] [address] Assigned PCP 06/08/21 08/09/24 documented as of this encounter
--- OUTSIDE RECORDS SUMMARY | 2025-05-30 12:07 | XMS_ITS | Encounter Summary ---
Author Organization [facility] Address [address] [place] [address]. [place] [address] Care Team Providers Care General Ledger Accountant Name Role Phone Garcia Muñiz RN Unavailable Tiara Granados MD Unavailable [phone] Ham Mujica Primary Care Provider [phone] Hiral Mir MD Primary Care Provider [phone] Hiral Mir MD Unavailable [phone] Encounter Details Date Type Department Care Team (Late st Contact Info) Description 03/02/2021 MyC Medical Advice [facility] Preoperative Assessment Center [address] [place] [address] [address] [place] [address] Hannah Ferrer PA-C [address] [place], [place] [id number] Social History Tobacco Use Types Packs/Day Years Used Date Smoking Tobacco: Former Cigarettes 0.5 48 S tarted: 03/07/2014 Smokeless Tobacco: Never Alcohol Use Standard Drinks/Week Comments Yes 0 (1 standard drink = 0.6 oz pur e alcohol) 1 drink every 2 weeks Comments No Sex and Gender Information Value Date Recorded Sex Assigned at Not on file 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 No / Unsure 03/02/2021 9:22 AM CDT documented as of this encounter Plan of Treatment Not on file documented as of this encounter Visit Diagnoses Not on filedocumented in this encounter Additional Health Concerns Infection Onset Date Last Indicated Resolved Time Rule Out COVID-19 03/20/2021 03/20/2021 03/21/2021 6:32 PM CDT COVID-19 04/11/2021 04/11/2021 05/02/2021 11:3 9 PM CDT documented as of this encounter Care Teams General Ledger Accountant Relationship Specialty Start Date End Date Valdemarbernadette Ham Delgado [address] [place] [address] PCP - General Internal Medicine 02/13/21 07/03/21 [place] [address] [address] PCP - General Family Medicine 07/04/21 Garcia Muñiz, RN Specialty Brand Analyst Neurological Surgery 08/10/20 07/03/21 Tiara Granados MD 909 [id number] [place] [address] Assigned Neuroscience Provider 09/09/20 01/04/23 [place] [address] [place] [address] Assigned PCP 06/08/21 08/09/24 documented as of this encounter
--- OUTSIDE RECORDS SUMMARY | 2025-05-30 12:07 | XMS_ITS | Encounter Summary ---
Author Organization [facility] Address [address] [place] [address]. [place] [address] Care Team Providers Care Digital Marketing Strategist Name Role Phone Garcia Muñiz RN Unavailable Tiara Granados MD Unavailable [phone] Ham Mujica Primary Care Provider [phone] Hiral Mir MD Primary Care Provider [phone] Hiral Mir MD Unavailable [phone] Encounter Details Date Type Department Care Team (Late st Contact Info) Description 01/07/2021 MyC Medical Advice [facility] [address]rd [place] [address] Tiara Granados MD [address] [place] [address] [id number] [address] Social History Tobacco Use Types [...] on file 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 Gender Identity Not on file Sexual Orientation [...] documented as of this encounter Care Teams Digital Marketing Strategist Relationship Specialty Start Date End Date Ham Mujica [address] [place] [address] PCP - General Internal Medicine 02/13/21 07/03/21 [place] [address] [address] [address] PCP - General Family Medicine 07/04/21 Garcia Muñiz, RN Specialty Chief Technical Officer Neurological Surgery 08/10/20 07/03/21 Tiara Granados MD [address] [id number] [place] [address] Assigned Neuroscience Provider 09/09/20 01/04/23 [place] [address] [address] [address] Assigned PCP 06/08/21 08/09/24 documented as of this encounter
--- OUTSIDE RECORDS SUMMARY | 2025-05-30 12:07 | XMS_ITS | Encounter Summary ---
Author Organization [facility] Address [address] [place] [address]. [place] [address] Care Team Providers Care Auto Fleet Maintenance Manager Name Role Phone Garcia Muñiz RN Unavailable Tiara Granados MD Unavailable [phone] Ham Mujica Primary Care Provider [phone] Hiral Mir MD Primary Care Provider [phone] Hiral Mir MD Unavailable [phone] Encounter Details Date Type Department Care Team (Late st Contact Info) Description 09/16/[address] 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 No / Unsure 09/09/2020 1:34 PM CDT documented as of this encounter Plan of Treatment Not on file documented as of this encounter Visit Diagnoses Not on filedocumented in this encounter Additional Health Concerns Infection Onset Date Last Indicated Resolved Time COVID-19 09/09/2020 09/09/2020 09/30/2020 11:4 0 PM STRATEGIC MARKETING LEADER Rule Out COVID-19 03/20/2021 03/20/2021 03/21/2021 6:32 PM CDT COVID-19 04/11/2021 04/11/2021 05/02/2021 11:3 9 PM CDT documented as of this encounter Care Teams Auto Fleet Maintenance Manager Relationship Specialty Start Date End Date Sil Ham Delgado [address] [place] [address] PCP - General Internal Medicine 02/13/21 07/03/21 [place] [address] [address] [address] PCP - General Family Medicine 07/04/21 Garcia Muñiz RN Specialty Bakeshop Cleaner Neurological Surgery 08/10/20 07/03/21 Tiara Granados MD 909 [facility] [id number] [place] [address] Assigned Neuroscience Provider 09/09/20 01/04/23 [place] [address] [address] [address] Assigned PCP 06/08/21 08/09/24 documented as of this encounter
--- OUTSIDE RECORDS SUMMARY | 2025-05-30 12:07 | XMS_ITS | Encounter Summary ---
Author Organization [facility] Address [address] [place] [address]. [place] [address] Care Team Providers Care Finishing Machine Tender Name Role Phone Hilary Xiao MD Primary Care Provider [phone] Garcia Muñiz RN Unavailable Tiara Granados MD Unavailable [phone] Garcia Muñiz RN Unavailable Tiara Granados MD Unavailable [phone] Ham Mujica Primary Care Provider [phone] Hiral Mir MD Primary Care Provider [phone] Hiral Mir MD Unavailable [phone] Encounter Details Date Type Department Care Team (Late st Contact Info) Description 10/04/2003 Office Visit-[facility] [address] [place] [address] Unknown, DoctorMD Social History Tobacco Use Types Packs/Day Years Used Date Smoking Tobacco: Never Assessed Comments Unknown Sex and Gender Information Value Date Recorded Sex Assigned at Not on file 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 DATE: 10/04/2003 XUAN LINARES DATE OF : 1945 AGE: [age] years old Referring Physician: HILARY XIAO CURRENT DIAGNOSES 1. - CAD, 414.00 2. - Hyperlipidemia, 272.4 3. - Hypertension, benign, 401.1 4. - Chest Pain-unspecified, 786.50 5. - Angina Pectoris, 413.9 ALLERGIES Angio dye, Severe skin reacton Medals, Skin reaction MEDICATIONS 1. Xanax 2 mg, 25 mg prn 2. Calcium Citrate with Vitamin D 1500 mg-200 u, 1200 mg qd 3. Aspir-Low 81 mg, 1 p.o. q.d. 4. Imipramine Hydrochloride 25 mg, 1 p.o. b.i.d. 5. Zocor 20 Mg, 1 p.o. qHS 6. Lisinopril 20 mg, 1 p.o. q.d. CHIEF COMPLAINTS F/u HISTORY OF PRESENT ILLNESS Xuan had a nuclear stress test recently that showed no evidence for any recurring ischemia. She had a [id number]-[id number] stent placed March for high grade right coronary lesion. She has twinges of chest pains which she says are very different from the more oppressive pains that she had last spring. She is very understandably nervous and concerned about any chest pains that she gets. However, she can definite the twinges now from the pains that she had last spring. I reminded her as to why this was an important point of definition. She has stopped smoking. Her lipid profile today is excellent. She has not been feeling light-headed or dizzy but want to know why she is on so many medications. She is soon to finish her Plavix dosewithin two weeks and I have asked her to stop her Imdur and her HCTZ. Her blood pressure has been very well controlled just on a modest dose of lisinopril. Her biggest symptom today is that of acute menopausal withdrawal since having been taken off Premarin. I went over the data that would suggest that short-term use of Premarin might still be okay for her particularly since she is extremely symptomatic without her hormone replacement therapy. I told her that cardiac consideration should not be taken into account when deciding whether Premarin should be continued or not. She would like Dr. Xiao to resume a small dose of hormone replacement which Itold her would be very neutral as far as I was concerned. PAST HISTORY Past Medical Illnesses: hyperlipidemia, hx of tobacco use, chronic knee pain, hypertension, anxiety, depression Past Cardiac Illnesses: chest pain, coronary artery disease, angina Cardiology Procedures-Invasive: PTCA 1994, cardiac cath (left) March 2003 Cardiology Procedures-Noninvasive: stress echocardiogram February 2003, (at [facility]), myocardial perfusion imaging (Nuclear) September 2003 Left Ventricular Ejection Fraction: 78% PMHx Stress Echo Results: positive for ischemia [...] snoring, cough, wheezing or hemoptysis. CARDIOVASCULAR chest discomfort ABDOMINAL denies change in bowel habits, dyspepsia, ulcer disease, hematochezia or melena. MUSCULOSKELETAL denies any history of arthritic symptoms or back problems. NEUROLOGICAL denies any history of recurrent strokes, TIA, or seizure disorder. PSYCHIATRIC depression ENDOCRINE polyuria HEMATOLOGICAL/IMMUNOLOGIC denies any food allergies, seasonal allergies, bleeding disorders. PHYSICAL EXAMINATION VITAL SIGNS: Blood Pressure: 94/60 Sitting, Left arm, regular cuff Pulse- 60.00/min. Weight- 161.20 lbs. Height- .00 Temperature- .00 CONSTITUTIONAL cooperative, [...] time, person and place. MEDICATIONS UPDATED TODAY: Aspir-Low 81 mg, 1 p.o. q.d., 0 Plavix 75 mg, 1 p.o. q.d., 0 MEDICATION STOPPED TODAY: Hydrochlorothiazide 12.5 mg, Imdur 30 mg, Glucosamine / chondroition 500 mg/ 400 mg and Nifedipine 60 mg IMPRESSIONS/PLAN 1. Coronary disease, six months status post stenting of the right coronary artery without recurrence of angina and with a nuclear stress test that is normal. 2. Well controlled hyperlipidemia. 3. Well controlled hypertension. RECOMMENDATION: 1. Barring any problems, I would like to see her next year. 2. I talked to her about other tests that would use iodine contrast for which she needs to be aggressively pre-medicated with prophylaxis maintained for several days. 3. She will try to convince Dr. Xiao to give her hormonal replacement again. TODAYS ORDERS 1. Return Visit 1 year Tao Ferrari M.D. <B><FONT FACE=System> <FONT COLOR=#[id number]><FONT POINT=10> Document electronically signed by : Tao Ferrari M.D. Date : 09/26/2004 Time : 3:58:34 PM documented in this encounter Plan of Treatment Not on file documented as of this encounter Visit Diagnoses Not on filedocumented in this encounter Additional Health Concerns Infection Onset Date Last Indicated Resolved Time COVID-19 09/09/2020 09/09/2020 09/30/2020 11:4 0 PM BUDGET COUNSELOR Rule Out COVID-19 03/20/2021 03/20/2021 03/21/2021 6:32 PM CDT COVID-19 04/11/2021 04/11/2021 05/02/2021 11:3 9 PM CDT documented as of this encounter Care Teams Finishing Machine Tender Relationship Specialty Start Date End Date Hilary Xiao MD PCP - General Family Practice 07/11/12 08/10/20 Ham Mujica [address] [place] [address] PCP - General Internal Medicine 02/13/21 07/03/21 [place] [address] [address] [address] PCP - General Family Medicine 07/04/21 Garcia Muñiz, RN Nurse Coordinator Neurological Surgery 04/23/14 7 Tiara Granados MD [address] [address] Neurological Surgery 04/14/15 12/09/16 Garcia Muñiz, FABIÁN Specialty Hemstitching Machine Operator Neurological Surgery 08/10/20 07/03/21 Tiara Granados MD [address] [address] Assigned Neuroscience Provider 09/09/20 01/04/23 [place] [address] [address] [address] Assigned PCP 06/08/21 08/09/24 documented as of this encounter
--- OUTSIDE RECORDS SUMMARY | 2025-05-30 12:07 | XMS_ITS | Encounter Summary ---
Author Organization [facility] Address [address] [place] [address]. 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 Gender Identity Not on file Sexual Orientation [...] documented as of this encounter Care Teams Tailor Helper Relationship Specialty Start Date End Date Ham Mujica [address] [place] [address] PCP - General Internal Medicine 02/13/21 07/03/21 [place] [address] [address] [address] PCP - General Family Medicine 07/04/21 Garcia Muñiz, FABIÁN Specialty Stablehand Neurological Surgery 08/10/20 07/03/21 Tiara Granados MD [address]09 [facility] [address] Assigned Neuroscience Provider 09/09/20 01/04/23 [place] [address] [address] [address] Assigned PCP 06/08/21 08/09/24 documented as of this encounter
[2025-05-30 12:09] VITALS: BP 141/64; PULSE 77; RESP 18; TEMP 36.5; O2SAT 97; BMI 27.4
--- NOTE | 2025-05-30 12:12 | ED.GENADULT ---
HPI - General Adult General Date Seen: 05/30/25 Chief complaint: Insect Bite Stated complaint: tick bite on left foot- possible infection Time Seen by Provider: 05/30/25 12:10 History of Present Illness HPI narrative: This is a very pleasant 79-year-old female presenting to the ER today with concern for a left foot infection. She is generally healthy with no history of diabetes, cancer, immunosuppression. Her current illness probably started about 3 weeks ago. Three weeks ago she discovered an engorged large tick that was attached in between her 3rd and 4th toes on her left foot. She thinks the tick was fairly large in fairly full of blood is so probably was a wood tick. She is pretty confident it was not a deer tick. She was able to remove the tick and she is pretty confident she got the entire tick out, including the mouth parts. She seemed fine for about a week but then began developed some redness and swelling on the lateral side of her 3rd toe where the tick had been attached. The swelling increased over couple of days. She went to the urgent care on Saturday and was given a prescription for antibiotic ointment. She was using that but noticed that she had spreading redness and increasing pain so went back to the urgent care 2 days ago on Saturday. She was put on cephalexin 500 t.i.d.. She took 1 dose Saturday, 3 doses yesterday, and 1 dose this morning. However since then she has noted new spreading redness that is now spreading on the dorsum of her forefoot in between those toes. She is also having a little bit of increased pain in her foot. No purulent drainage. No other red pittman. No fever or chills. No body aches. Because of the spreading redness she came to the ER today. She does not want this infection to get worse. She has no history of other skin infections and no known history of MRSA colonization. Related Data Home Medications ?Medication ?Instructions ?Recorded ?Confirmed escitalopram oxalate 20 mg tablet 20 mg PO DAILY 05/25/25 05/28/25 evolocumab 140 mg/mL subcutaneous 140 mg subcut Q2W 05/25/25 05/28/25 pen injector (Loni Lau) lisinopril 10 mg tablet 10 mg PO 05/25/25 05/28/25 pravastatin 80 mg tablet 80 mg PO DAILY 05/25/25 05/28/25 ursodiol 500 mg tablet 250 mg PO 05/25/25 05/28/25 gabapentin 300 mg capsule 600 mg PO Q12H 05/30/25 05/30/25 Previous Rx's ?Medication ?Instructions ?Recorded cephalexin 500 mg capsule 500 mg PO TID 7 days #21 [facility] 05/28/25 cephalexin 500 mg capsule 500 mg PO QID #11 [facility] 05/30/25 doxycycline monohydrate 100 mg 100 mg PO BID #14 [facility] 05/30/25 capsule Allergies Allergy/AdvReac Type Severity Reaction Status Date / Time No Known Drug Allergies Allergy Verified 05/28/25 13:52 Exam Narrative: Exam Narrative: Constitutional: Appears well-developed and well-nourished. Alert. Conversant. Non toxic. HENT: Head: Atraumatic. Nose: Nose normal. Mouth/Throat: Oral mucosa is clear and moist. no trismus. Pharynx normal. Tonsils symmetric. No tonsillar enlargement, erythema, or exudate. Eyes: Conjunctivae normal. EOM normal. Pupils equal, round, and reactive to light. No scleral icterus. Neck: Normal range of motion. Neck supple. No tracheal deviation present. Cardiovascular: Normal rate, regular rhythm. No gallop. No friction rub. No murmur heard. Symmetric DP and PT artery pulses . Normal cap refill in her toe tips. Pulmonary/Chest: Effort normal. No stridor. No respiratory distress. No wheezes. No rales. No rhonchi . Musculoskeletal: RUE: Normal range of motion. No tenderness. No deformity LUE: Normal range of motion. No tenderness. No deformity RLE: Normal range of motion. No edema. No tenderness. No deformity LLE: Normal range of motion in her hip, knee, ankle, toes. Normal plantar and dorsiflexion of her toes and foot. She does have erythema of the 3rd and 4th toes on the left foot, more so on the 3rd toe then the 4th toe with a small tender over erythema extending about fiber 6 cm proximal. The most erythema is actually right in between the webspace of the toes. When I inspected between web say set see that she has about a 2 x 5 cm area of skin breakdown and maceration. No purulent drainage. No palpable fluctuance. On the lateral side of the 3rd toe there is a small sub mm scab which is probably the original site of the tick bite. Visualized under magnification I do not see any sign of a retained foreign body. Mild tenderness on the red area on her forefoot. No crepitus. No fluctuance. No signs of any diabetic foot ulcers. I do not see any other visible foreign bodies on the sole of her foot. No signs of any ischemia in that tips of her toes. No splinter hemorrhages. However, I am only able to visualize part of her toenail beds because she has some nail Mongolian in place. No deformity Lymph: No cervical adenopathy. Neurological: Alert and oriented to person, place, and time. Normal strength. CN II-VII intact. No sensory deficit. GCS eye subscore is 4. GCS verbal subscore is 5. GCS motor subscore is 6. Normal coordination Skin: Skin is warm and dry. No rash noted. No pallor. Normal capillary refill. Psychiatric: Normal mood. Normal affect. Const: Vital Signs, click to edit/add: Vital Signs - 24 hr 05/30/25 12:09 Temperature 97.7 F Pulse Rate [Right Pulse Oximeter] 77 Respiratory Rate 18 Blood Pressure [Ri ght Upper Arm] 141/64 H Pulse Oximetry 97 Oxygen Delivery Me thod Room Air Course Vital Signs Vital signs: Initial Vital Signs Temperature 97.7 F 05/30/25 12:09 Temperature Source Temporal Artery Scan 05/30/25 12:09 Pulse Rate 77 05/30/25 12:09 Respiratory Rate 18 05/30/25 12:09 Blood Pressure 141/64 H 05/30/25 12:09 Blood Pressure Mean 89 05/30/25 12:09 Blood Pressure Position Sitting 05/30/25 12:09 Pulse Oximetry 97 05/30/25 12:09 Oxygen Delivery Method Room Air 05/30/25 12:09 Vital Signs Temperature 97.7 F 05/30/25 12:09 Pulse Rate 77 05/30/25 12:09 Respiratory Rate 18 05/30/25 12:09 Blood Pressure 141/64 H 05/30/25 12:09 Pulse Oximetry 97 05/30/25 12:09 Oxygen Delivery Method Room Air 05/30/25 12:09 Temperature 97.7 F 05/30/25 12:09 Pulse Rate 77 05/30/25 12:09 Respiratory Rate 18 05/30/25 12:09 Blood Pressure 141/64 H 05/30/25 12:09 Pulse Oximetry 97 05/30/25 12:09 Oxygen Delivery Method Room Air 05/30/25 12:09 Medical Decision Making MDM Narrative Medical decision making narrative: This patient presents for evaluation of skin redness that started between her left foot 3rd and 4th toes over a week ago. She has already been on topical antibiotic ointment and has been on 36 hours of Keflex but has noted increasing swelling redness in her foot. She is otherwise afebrile, and has no symptoms of systemic illness such as chills or body aches. She is immunocompetent The history, physical exam is consistent with cellulitis. There do not appear at this time to be any complication of cellulitis including abscess, necrotizing fascitis, lymphangitis, lymphadenitis, osteomyelitis, sepsis, or shock. The patient is not immunosuppressed or diabetic. Challenge here is determine why the infection has not responded to antibiotics so far. It is possible, since she has only had 36 hours of Keflex, that we need to give that some more time. It is also possible that she has a pathogen in her toes that is resistant to Keflex such as community-acquired MRSA. Patient is pretty confident this was a wood tick and not a deer tick so I have low suspicion for erythema migrans or Lyme or baby's E Anatone or air look Anatone. However I think it is reasonable to broaden her antibiotic coverage. Will put her on doxycycline 100 b.i.d. for 7 days. Doxy would cover most common tick-borne illnesses and also would cover most strains of community acquired MRSA. Counseled about sun sensitivity with doxycycline. Will also have her increase her dose of cephalexin from 500 t.i.d. up to 500 q.i.d.. The patient is instructed to follow-up with primary care physician or return to the ER to ensure no progression and appropriate resolution . given precautions to return if high fever, spread greater than 2cm outside of the current area, worsening pain, vomiting or any other worsening. Questions answered and return precautions reviewed. Discharge Plan Discharge Clinical Impression: Cellulitis of foot Patient Disposition: Home, Self-Care Condition: Stable Instructions: Cellulitis (ED) Additional Instructions: As we discussed, the exact cause of your infection is unclear at this time. It is not clear if this is an ordinary skin infection with staph or strep, or if this is an MRSA infection, or this could be some other tick-borne illness. I do not think this is Lyme disease. I want you to continue on the cephalexin antibiotic and take it 4 times a day for a total of 7 days. Will also put you on 7 days of a 2nd antibiotic, called doxycycline. Doxycycline would cover for most tick-borne infections and also would cover for many strains of MRSA. Watch the area carefully. If you have redness spreading more than an inch outside its current location or worsening pain, increasing swelling, high fever, please come back to the ER right away. It will probably take several days for the redness to begin to fade and may take a week or more to completely resolve. If you have any concerns, please come back to the ER right away. Prescriptions: New cephalexin 500 mg capsule 500 mg PO QID Qty: 11 0RF doxycycline monohydrate 100 mg capsule 100 mg PO BID Qty: 14 0RF No Action pravastatin 80 mg tablet 80 mg PO DAILY lisinopril 10 mg tablet 10 mg PO Patient Comments: [NO ORIGINAL SIG] escitalopram oxalate 20 mg tablet 20 mg PO DAILY ursodiol 500 mg tablet 250 mg PO Patient Comments: [NO ORIGINAL SIG] Repatha SureClick 140 mg/mL pen injector 140 mg subcut Q2W cephalexin 500 mg capsule 500 mg PO TID 7 Days Qty: 21 0RF gabapentin 300 mg capsule 600 mg PO Q12H Patient Comments: [NO ORIGINAL SIG] Follow Up/Referrals: Provider,Not a Local [Primary Care Provider, Family Practice] Stand Alone Forms: [facility] Info Instructions
== END 2025-05-30 12:55 | disposition home or self-care (01) ==
LOC: ED 12:50
PROVIDERS: Emergency Provider Emergency Medicine
DX: L03.116 Cellulitis of left lower limb (principal)
CPT/HCPCS: 99282; 99283